=== PATIENT | female | born 1950 | race Caucasian/White ===

== ENCOUNTER 2024-08-20 14:29 | Outpatient (CLI) | payer MEDICARE, SELFPAY ==
--- OUTSIDE RECORDS SUMMARY | 2024-06-26 11:18 | XMS_ITS | Encounter Summary ---
Author Organization Healthcare Address [address] [id number] Care Team Providers Care Preventive Maintenance Engineer Name Role Phone Pcp, No Primary Care Provider Unavailabl e Reason for Referral * Consultation (Routine) - Authorized Specialty Diagnoses / Procedures Referred By Diana blas Referred To Contact Neurosurgery Diagnoses Recurrent falls Mary Ramirez, COST ESTIMATOR [address] [address] Phone: tel: fax: Referral ID Status Reason Start Date Expiration Date Visits Requested Visits Authorized [id number] Authorized Specialty Services Required 06/27/2024 12/27/2025 1 1 Scheduling Instructions Follow up s/p SAH with repeat CTH Reason for Visit * Reason Comments Multiple Complaints * Auth/Cert (Routine) Specialty Diagnoses / Procedures Referred By Diana blas Referred To Contact Diagnoses SAH (subarachnoid hemorrhage) ([facility] Saira Woodward MD [address] [address] Phone: tel: fax: [facility] [address] T[address] [place] [address] Phone: tel: Referral ID Status Reason Start Date Expiration Date Visits Re quested Visits Authorized [id number] 1 1 Encounter Details Date Type Department Care Team ([facility] st Contact Info) Description 06/26/2024 11:18 AM EDT - 06/27/2024 1:22 PM EDT Hospital Encounter [facility] PAVA [address] T[address] [place] [address] Dimas Lau MD [address] [place] [address] Zain Babin MD [address] [place] [address] Saira Woodward MD [address] [address] Antonella David MD [id number] [place] [address] Syncope, unspecified syncope type (Primary Dx); Recurrent falls Discharge Disposition: Home or Self Care Social History Tobacco Use Types Packs/Day Years Used Date Smoking Tobacco: Never Smokeless Tobacco: Never Tobacco Cessation:Counseling Given: Not Answered Alcohol Use Standard Drinks/Week Comments Never 0 (1 standard drink = 0.6 oz pur e alcohol) Comments Unknown Sex and Gender Information Value Date Recorded Sex Assigned at Female 08/28/2023 4:06 PM EDT Legal Sex Female 8:00 PM EDT Gender Identity Female 08/28/2023 4:06 PM EDT Sexual Orientation Not on file documented as of this encounter Last Filed Vital Signs Vital Sign Reading Time Taken Comments Blood Pressure 156/90 06/27/2024 11:40 AM EDT Pulse 76 06/27/2024 11:40 AM EDT Temperature 36.8 C (98.2 F) 06/27/2024 11:40 AM EDT Respiratory Rate 16 06/27/2024 3:44 AM EDT Oxygen Saturation 94% 06/27/2024 11:40 AM EDT Inhaled Oxygen Concentration - - Weight 68.5 kg (151 lb) 06/26/2024 8:31 PM EDT Height 157.5 cm (5' 2 ) 06/26/2024 8:31 PM EDT Body Mass Index 27.62 06/26/2024 8:31 PM EDT documented in this encounter Functional Status * Calculated C-SSRS Risk Score (Lifetime/Recent) Answer Date of Assessment Author No Risk Indicated 06/28/2024 1:20 PM EDT Susan Solis, RN * Question Answer Date of Assessment Author 1. Wish to be (Past 1 Month) No 025 1:20 PM EDT Susan Solis, RN 2. Non-Specific Active Suici yeyo Thoughts (Past 1 Month) No 06/28/2024 1:20 PM EDT Susan Solis RN 6. Suicidal Behavior (Lifetime) No 5 1:20 PM EDT Susan Solis, RN documented as of this encounter Discharge Instructions * Discharge Instructions* Mary Ramirez, COST ESTIMATOR - 06/27/2024 11:43 AM EDT DVT prophylaxis: Hold X2 weeks Procedures: None Mobility Restrictions: AAT Other Precautions: No lifting > 10 lbs or lifting overhead x 4 weeks. 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 Questions or Concerns and Appointments If there are questions or concerns after discharge from the hospital, please call [phone] and ask for [facility] Nurse. Working hours are Monday - Monday 8:00 AM to 4:00 PM. After hours, weekends and holidays please call [phone] and ask for the resident oracle ascp consultant for [facility]. For appointments please call [phone]. Medication requests should be made between the hours of 9:00 AM to 3:00 PM Monday thru Monday. Please note that based upon recent changes to [place] law related to prescribing opioid pain medications, our providers will not provide refills on controlled medications after your hospital discharge following a major surgery or trauma. [place] 201 KAR9:260. documented in this encounter Medications at Time of Discharge acetaminophen (Tylenol) 325 MG tablet Take 2 tablets by mouth every 6 hours. Under [place] law, monthly prescriptions (30 days) can be refilled at 25 days and three-month prescriptions (90 days) at 80 days. Please contact the insurance company with questions if refills are denied. 100 tablet 06/27/2024 albuterol 108 (90 Base) MCG/ACT inhaler Inhale 2 puffs every 4 (four) hours if needed. 06/20/2022 alendronate (Fosamax) 70 MG tablet Take 1 tablet by mouth 1 time per week. Mondays11/02/2022 amLODIPine (Norvasc) 5 MG tablet Take 1 tablet by mouth daily. 30 tablet 06/28/2024 atorvastatin (Lipitor) 80 MG tablet Take 1 tablet (80 mg) by mouth 1 (one) time each day in the morning. 11/03/2022 carvedilol (Coreg) 6.25 MG tablet Take 1 tablet by mouth 2 times a day. 60 tablet 06/27/2024 Farxiga 5 MG tablet Take 1 tablet (5 mg) by mouth 1 (one) time each day in the morning. 11/16/2022 hydrOXYzine HCl (Atarax) 25 MG tablet Take 0.5 tablets (12.5 mg) by mouth 3 (three) times a day. 11/03/2022 lacosamide (Vimpat) 50 MG tablet Take 1 tablet (50 mg) by mouth 1 (one) time each day in the morning. 11/02/2022 levothyroxine (Synthroid, Levoxyl) 50 MCG tablet Take 1 tablet (50 mcg) by mouth 1 (one) time each day in the morning. 11/02/2022 pantoprazole (ProtoNix) 20 MG EC tablet Take 2 tablets (40 mg) by mouth 1 (one) time each day in the morning. 11/02/2022 pregabalin (Lyrica) 50 MG capsule Take 1 capsule (50 mg) by mouth 2 (two) times a day. 11/02/2022 primidone (Mysoline) 50 MG tablet Take 1 tablet (50 mg) by mouth 2 (two) times a day. 11/02/2022 topiramate 50 MG tablet Take 1 tablet (50 mg) by mouth 2 (two) times a day. 11/02/2022 butalbital-aceta minophen-caffein e 50-325-40 MG tablet Take 1 tablet by mouth every 4 hours as needed for headaches for up to 10 days. 60 tablet 06/27/2024 5 senna-docusate (Arlet-Colace) 8.6-50 MG tablet Take 1 tablet by mouth daily for 14 days. 14 tablet 06/28/2024 5 documented as of this encounter Miscellaneous Notes * Refugio Lindquist RN - 06/27/2024 12:04 PM EDT Images from the original note were not included. 98[address] Using an Incentive Spirometer An incentive spirometer is a handheld device that helps you do deep breathing exercises after surgery. It also helps lower the risk of breathing problems if you have a lung disease or condition. These exercises expand your lungs, aid in circulation, and may help prevent pneumonia. Deep breathing exercises also help you breathe better and improve lung function by: ?? Keeping your lungs clear. ?? Making your breathing muscles stronger. ?? Helping prevent respiratory complications or problems. The incentive spirometer gives you a way to take an active part in your recovery. A nurse or respiratory therapist will teach you breathing exercises. To do these exercises, you will breathe in through your mouth and not your nose. The incentive spirometer only works correctly if you breathe in through your mouth. Deep breathing expands the lungs, aids circulation, and helps prevent pneumonia. Your health care provider or their staff will tell you how to use the device, your targeted volume(s), and provide other helpful tips to prevent complications (such as pain, dizziness, feeling lightheaded) when blowing in the incentive spirometer. Steps to clear lungs Step 1. Exhale normally. Then, inhale normally. ?? Relax and breathe out. Step 2. Place your lips tightly around the mouthpiece. ?? Make sure the device is upright and not tilted. ?? Sit up and breathe out (exhale) fully. ?? Tightly seal your lips around the mouthpiece. Step 3. Inhale as much air as you can through the mouthpiece. Don't breathe through your nose. ?? Breathe in (inhale) slowly and deeply. ?? Hold your breath long enough to keep the balls, piston, or disk raised for at least 3 to 5 seconds, or as instructed by your health care provider. ?? Exhale slowly to allow the balls, piston, or disk to fall before repeating. Note: Some spirometers have an indicator to let you know that you are breathing in too fast. If theindicator goes off, breathe in more slowly. Step 4. Repeat the exercise regularly. ?? Do sets of 10 exercises every hour while you're awake, or as instructed by your health care provider. Don't do more than 30 breaths in each set. ?? If you were taught deep breathing and coughing exercises, do them regularly as instructed by your provider, nurse, or respiratory therapist. Follow-up care Make a follow-up appointment as directed by your health care provider. Also, follow up with your provider as advised if your symptoms don't improve or continue to get worse. When to contact your doctor Contact your health care provider right away if you have: ?? A fever 100.4?? (38??C) or higher, or as advised by your provider. ?? Brownish, bloody, or smelly sputum (phlegm that you cough up). Call 911 Call 911 if any of these occur: ?? Shortness of breath that doesn't get better after taking your medicine ?? Cool, moist, pale, or blue skin ?? Trouble breathing or swallowing, wheezing ?? Fainting or loss of consciousness ?? Feeling of dizziness or weakness, or a sudden drop in blood pressure ?? Feeling very ill ?? Lightheadedness ?? Chest pain or rapid heart rate Last Reviewed Date: 2024 00:00:00 ?? [id number] [employer]. All rights reserved. This information is not intended as a substitute for professional medical care. Always follow your healthcare professional's instructions. * KraRefugio Ramos RN - 06/27/2024 12:04 PM EDT Images from the original note were not included. [id number] Rib Fracture (Broken Rib) Your ribs are curved bones in your chest. They help protect your lungs and expand and contract whenyou breathe. Children's ribs bend easily and can often withstand a blow or fall. But adult ribs aremore likely to break (fracture) under stress. Even coughing or a hard sneeze can fracture a rib. When to go to the emergency room (ER) Although they can be painful, most rib fractures aren't serious. But they often make it hard to cough or breathe deeply. Get to the ER or call 911 right away if you have: ?? Trouble breathing ?? Nausea, vomiting, or stomach pain with a sore or bruised rib ?? Pain that gets worse over time ?? An injury to the chest or stomach What to expect in the ER Here's what will happen in the ER: ?? A healthcare provider will ask about your injury and examine you carefully. ?? An X-ray of your chest will likely be taken to show any major damage to ribs and lungs. But ribscan have small breaks that don't show up on X-rays, even though they still hurt. In some cases, a CT scan may be done. ?? You may be given medicine to ease your discomfort. ?? In rare cases, rib fractures can cause a lung to collapse or lead to bleeding in the chest. In these cases, a tube will be inserted into the chest to reinflate the lung or drain the blood. Follow-up You are likely to heal in 6 to 8 weeks. Most rib fractures heal on their own with no lasting effects. Call your healthcare provider right away if you notice any of these symptoms: ?? Increased chest pain ?? Shortness of breath ?? Fever of 100.4??F (38??C) or above, or as advised by your provider ?? Chills ?? Coughing up blood Last Reviewed Date: 2023 00:00:00 ?? [id number] [employer]. All rights reserved. This information is not intended as a substitute for professional medical care. Always follow your healthcare professional's instructions. * Dileep Rodriguez - Refugio Haney RN - 06/27/2024 12:04 PM EDT Images from the original note were not included. [id number] Fall Prevention Falls often take place due to slipping, tripping, or losing your balance. Millions of people fall every year and injure themselves. Among older adults in the [place] falls are the most common cause of traumatic brain injuries. Every 20 minutes, an older adult dies from a fall. Here are ways to reduceyour risk of falling again: ?? Think about your fall. Was there anything that caused your fall that can be fixed, removed, or replaced? ?? Make your home safe by keeping walkways clear of objects you may trip over, such as animal toys and electrical cords. ?? If you are sad or depressed talk to your health care provider. Symptoms of depression, such as feeling under the weather, or physically slowed down, have been linked to an increased fall risk. ?? Drink fluids throughout the day. Dehydration can lead to dizziness and increase your risk of falling. It's best to talk to your primary care providers about how much water you should drink. They know your medical history, your current prescriptions and your [id number] medicines. As a general rule, the National [place] [employer] Aging (NCA) recommends taking one-third of your body weight and drinking that number of ounces in fluids. For example, if you weigh 150 pounds, you would drink at least 50 ounces, or about 6 cups, of fluid each day. Ask your provider if it's safe for you to use this formula. ?? Use nonslip pads under rugs. Don't use area rugs or small throw rugs. ?? Use nonslip mats in bathtubs and showers. ?? Hang grab rails by the toilet and inside and outside the shower. ?? Install handrails and lights on staircases. The handrails should be on both sides of the stairs. ?? Use night lights. ?? Don't walk in poorly lit areas. ?? Don't stand on chairs or wobbly ladders. ?? Use care when reaching overhead or looking up. This position can cause a loss of balance. ?? Be sure your shoes fit well, are in good condition, and have nonslip bottoms. ?? Wear shoes both inside and outside of your home. Don't go barefoot or wear slippers. ?? Be cautious when going up and down stairs, curbs, and when walking on uneven sidewalks. ?? If your balance is poor, consider using a cane or walker. Talk with your health care provider about having a balance assessment. ?? If your fall was related to alcohol use, stop or limit alcohol intake. Ask your provider for help if you think you may overuse alcohol and can't stop. ?? If your fall was related to use of sleeping medicines, talk with your provider about this. You may need to reduce your dosage at bedtime if you wake up during the night to go to the bathroom. ?? To reduce the need for nighttime bathroom trips: o Don't drink fluids for several hours before going to bed. o Empty your bladder before going to bed. o Men can keep a urinal at the bedside. ?? Stay as active as you can. Balance, flexibility, strength, and endurance all come from exercise.They all play a role in preventing falls. Ask your provider which types of activity are right for you. Try to do some type of exercise every day. ?? Get your eyes checked once a year or more often if your vision changes. Be extra cautious while adjusting to new prescription lenses. ?? If you have pets, know where they are before you stand up or walk so you don't trip over them. ?? Go over all your medicines with a pharmacist or other provider. This is to see if any of them could make you more likely to fall. Have this type of medicine review at least once every year. ?? If your provider advises a new medicine, ask if the side effects will affect your balance. ?? Don't move quickly from one position to another. For instance, don't stand up fast from sitting.This can cause dizziness and may lead to a fall. ?? Sit down when putting on pants, socks, and shoes. This will make you less likely to lose your balance and fall. ?? Always let your provider know if you have fallen since your last visit. ?? Contact your provider right away if you're having balance problems or falling more often. Last Reviewed Date: 2024 00:00:00 ?? [id number] [employer]. All rights reserved. This information is not intended as a substitute for professional medical care. Always follow your healthcare professional's instructions. * Dileep OnFHIR - Refugio Haney RN - 06/27/2024 12:04 PM EDT Images from the original note were not included. [id number] After a Fall You have had a fall today. That means that you slipped, tripped, or lost your balance. If your fallwas because of fainting or a seizure, you might need other tests. It is normal to feel sore and tight in your muscles and back the next day, and not just the musclesyou injured. Remember, all the parts of your body are connected, so while one area hurts now, the next day another may hurt. Also, when you injure yourself, it causes inflammation. This then causes the muscles to tighten up and hurt more. After the initial worsening symptoms, they should slowly improve over the next few days. Tell your healthcare provider if you have more severe pain. Even without a definite head injury, you can still get a concussion from your head suddenly jerkingforward, backward, or sideways when you fall. This is especially true if you have had concussions in the past. Concussions and even bleeding can still happen, especially if you had a recent injury ortake blood thinner medicine. It is not unusual to have a mild headache and feel tired and even nauseous or dizzy. Home care ?? Rest today and return to your normal activities when you are feeling back to normal. ?? If you were injured during the fall, follow the advice from your healthcare provider about how to care for your injury. ?? At first, don't try to stretch out the sore spots. If there is a strain, stretching may make it worse. Massage may help relax the muscles without stretching them. ?? Use an ice pack or cold compress on and off at the sore spots for 10 to 20 minutes at a time, asoften as you feel comfortable. This may help reduce the inflammation, swelling, and pain. ?? Know that if you have any scrapes (abrasions), they often heal within 10 days. Keep the scrapes clean while they start to heal. But an infection may happen even with correct care. So watch for early signs of infection (such as warmth, redness, or swelling). Medicines ?? Talk with your healthcare provider before taking new medicines, especially if you have other health problems or are taking other medicines. ?? If you need anything for pain, use acetaminophen or ibuprofen, unless you were given a differentpain medicine to use. Talk with your healthcare provider before using these medicines if you: o Have chronic liver or kidney disease o Ever had a stomach ulcer or gastrointestinal bleeding o Are taking blood-thinner medicines ?? Be careful if you are given prescription pain medicines, narcotics, or medicine for muscle spasms. They can make you sleepy and dizzy. And they can affect your coordination, reflexes, and judgment. Don't drive or do work where you can hurt yourself when taking them. Fall prevention ?? Fix, remove, or replace anything that caused your fall. ?? Make your home safe by keeping walkways clear of objects you could trip over. ?? Use nonslip pads under rugs. Don't use small area rugs or throw rugs. ?? Don't walk in poorly lit areas. ?? Don't stand on chairs or wobbly ladders. ?? Be careful when reaching overhead or looking upward. This position can cause a loss of balance. ?? Be sure your shoes fit correctly, have nonslip bottoms, and are in good condition. ?? Be careful when going up and down curbs, and walking on uneven sidewalks. ?? If your balance is poor, think about using a cane or walker. ?? Stay as active as you can. Balance, flexibility, strength, and endurance all come from exercise.They all play a role in preventing falls. ?? If you have pets, know where they are before you stand up or walk so you don't trip over them. ?? Limit alcohol intake. Alcohol can cause balance problems and increase the risk for falls. ?? Use night-lights. ?? Have your eyes tested to be sure you are seeing well, even if you already wear glasses. Follow-up Follow up with your healthcare provider, or as advised. If X-rays or CT scans were done, you will be told if there is a change in the reading, especially if it affects treatment. Call 911 Call 911 if any of these happen: ?? Trouble breathing ?? Confusion ?? Trouble waking up ?? Fainting or loss of consciousness ?? Fast or very slow heart rate ?? Seizure ?? Trouble with speech or vision, weakness of an arm or leg ?? Trouble walking or talking, loss of balance, numbness or weakness on one side of your body, or facial droop When to get medical advice Call your healthcare provider right away if any of these happen: ?? Repeated falls, including falls that seem to happen for no reason ?? Dizziness ?? Severe headache ?? Blood in vomit or stools (look black or red in color) Last Reviewed Date: 2022 00:00:00 ?? [id number] [employer]. All rights reserved. This information is not intended as a substitute for professional medical care. Always follow your healthcare professional's instructions. * Discharge Summary - Mary Ramirez APRN - 06/27/2024 11:51 AM EDT Hospitalization Admit Date/Time: 06/26/2024 11:18 AM Admitting Attending: Saira Woodward Discharge Date: 06/27/24 Discharge Attending Physician: Antonella David MD PCP name and Address: Pcp, No [address] [facility] [address] Referring provider name and address: No referring provider defined for this encounter. Chief Concern, Brief History of Present Illness, and Hospital Course Laxmi Lopez is 73 y/o female with pmhx of syncope, DDD (pain pump) CVA on plavix who presented to ED on 06/26 s/p fall with + LOC and headstrike. Injuries include: R 6th rib fx, IVH, SAH. Past 24h: Laxmi seen resting in bed. A&Ox4. Tolerating Ra. Denies SOA, chest pain, N/V, dizziness, headache, blurred vision. Patient states she has had a few syncopal episodes in the last few weeks. Encouraged her to follow up with PCP for syncopal workup; recommend CTA H&N & echo. Her SAH is stable. Encouraged pulm hygiene and MMPC for rib fx. Abdomen soft, non tender. 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 Voiding spontaneously. Resumed home antihypertensives. Patient denies alcohol/drug use. She has implanted morphine pain pump for DDD. No spinal tenderness with palpation and compression to C/T/L spine. No pelvic tenderness with rotation and palpation. All compartments are soft and compressible. Pulses are palpable and present. No pain outside of acute rib fx and chronic pain. PT/OT pending. Discussed plan of care with patient/family, attending, CM, RN, consulting teams. No further concerns at this time. Physical therapy and occupational therapy evaluated the patient during hospitalization and recommend HWA; RW At the time of discharge the patient was hemodynamically stable, tolerating PO, voiding spontaneously, normal bowel function, mobilizing appropriately, with their pain controlled with PO medication. At this time, the patient has obtained the maximum benefit from the present hospital stay, and so will be discharged to A; RW DVT prophylaxis: Hold X2 weeks Procedures: None Mobility Restrictions: AAT Other Precautions: No lifting > 10 lbs or lifting overhead x 4 weeks. 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 Questions or Concerns and Appointments If there are questions or concerns after discharge from the hospital, please call [phone] and ask for Blue Surgery Nurse. Working hours are Monday - Monday 8:00 AM to 4:00 PM. After hours, weekends and holidays please call [phone] and ask for the resident oracle ascp consultant for [facility]. For appointments please call [phone]. Medication requests should be made between the hours of 9:00 AM to 3:00 PM Monday thru Monday. Please note that based upon recent changes to [place] law related to prescribing opioid pain medications, our providers will not provide refills on controlled medications after your hospital discharge following a major surgery or trauma. [place] 201 [id number]. TRAUMA SURGERY TERTIARY SURVEY I performed a complete tertiary exam, reviewed patient history, lab studies and all available imaging. All traumatic or incidental findings have been documented as below: Past Medical History: Active Ambulatory Problems Diagnosis Date Noted No Active Ambulatory Problems Resolved Ambulatory Problems Diagnosis Date Noted Migraine without status migrainosus, not intractable, unspecified migraine type 11/18/2022 Past Medical History: Diagnosis Date Chronic back pain CVA (cerebral vascular accident) ([facility]) Grand mal seizure ([facility]) H/O absence seizures Hypertension Migraine Personal history of diseases of the blood and blood-forming organs and certain disorders involving the immune mechanism Personal history of other diseases of the musculoskeletal system and connective tissue Personal history of other diseases of the musculoskeletal system and connective tissue Personal history of other diseases of the nervous system and sense organs Personal history of other endocrine, nutritional and metabolic disease Personal history of transient ischemic attack (TIA), and cerebral infarction without residual deficits Personal history of urinary calculi 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 Authorizing Provider acetaminophen (Tylenol) 325 MG tablet Take 2 tablets by mouth every 6 hours. Under [place] law, monthly prescriptions (30 days) can be refilled at 25 days and three-month prescriptions (90 days) at 80 days. Please contact the insurance company with questions if refills are denied. 06/27/24 Yes Mary Ramirez APRN amLODIPine (Norvasc) 5 MG tablet Take 1 tablet by mouth daily. 06/28/24 07/28/24 Yes Mary Ramirez APRN fgxnyeohhi-vgocaccfyndom-cfkmjkti 50-325-40 MG tablet Take 1 tablet by mouth every 4 hours as needed for headaches for up to 10 days. 06/27/24 07/07/24 Yes Michelle Chávez PA carvedilol (Coreg) 6.25 MG tablet Take 1 tablet by mouth 2 times a day. 06/27/24 07/27/24 Yes Mary Ramirez APRN senna-docusate (Arlet-Colace) 8.6-50 MG tablet Take 1 tablet by mouth daily for 14 days. 06/28/24 07/12/24 Yes Mary Ramirez APRN albuterol 108 (90 Base) MCG/ACT inhaler Inhale 2 puffs every 4 (four) hours if needed. 06/20/22 Moni Chester MD alendronate (Fosamax) 70 MG tablet Take 1 tablet (70 mg) by mouth 1 (one) time per week. Mondays11/02/22 Moni Chester MD amLODIPine (Norvasc) 2.5 MG tablet Take 1 tablet (2.5 mg) by mouth 1 (one) time each day in the morning. 11/03/22 Moni Chester MD Aspirin Low Dose 81 MG EC tablet Take 1 tablet (81 mg) by mouth 1 (one) time each day in the morning. 11/02/22 Moni Chester MD atorvastatin (Lipitor) 80 MG tablet Take 1 tablet (80 mg) by mouth 1 (one) time each day in the morning. 11/03/22 Moni Chester MD carvedilol (Coreg) 25 MG tablet Take 1 tablet (25 mg) by mouth 2 (two) times a day. 11/19/22 11/19/23Agustina Jansen MD clopidogrel (Plavix) 75 MG tablet Take 1 tablet (75 mg) by mouth 1 (one) time each day in the morning. 11/02/22 Moni Chester MD Farxiga 5 MG tablet Take 1 tablet (5 mg) by mouth 1 (one) time each day in the morning. 11/16/22 Moni Chester MD hydrOXYzine HCl (Atarax) 25 MG tablet Take 0.5 tablets (12.5 mg) by mouth 3 (three) times a day. 11/03/22 Moni Chester MD lacosamide (Vimpat) 50 MG tablet Take 1 tablet (50 mg) by mouth 1 (one) time each day in the morning. 11/02/22 Moni Chester MD levothyroxine (Synthroid, Levoxyl) 50 MCG tablet Take 1 tablet (50 mcg) by mouth 1 (one) time each day in the morning. 11/02/22 Moni Chester MD pantoprazole (ProtoNix) 20 MG EC tablet Take 2 tablets (40 mg) by mouth 1 (one) time each day in the morning. 11/02/22 Moni Chester MD pregabalin (Lyrica) 50 MG capsule Take 1 capsule (50 mg) by mouth 2 (two) times a day. 11/02/22 Moni Chester MD primidone (Mysoline) 50 MG tablet Take 1 tablet (50 mg) by mouth 2 (two) times a day. 11/02/22 Moni Chester MD topiramate 50 MG tablet Take 1 tablet (50 mg) by mouth 2 (two) times a day. 11/02/22 Moni Chester MD traZODone (Desyrel) 100 MG tablet Take 2 tablets (200 mg) by mouth every night. 11/03/22 Moni Chester MD Social History: Pt has reports that she has never smoked. She has never used smokeless tobacco. She reports that she does not drink alcohol and does not use drugs. (details as available below) Social History Substance and Sexual Activity Alcohol Use Never Social History Substance and Sexual Activity Drug Use Never Tobacco Use History[2] Audit-C for Alcohol Misuse Screening Lab Results Component Value Date ETOH <10 08/28/2023 Q1: How often did you have a drink containing alcohol in the past year? Never = 0 Q2: How many drinks did you have on a typical day when you were drinking in the past year? None = 0 Q3: How often did you have six or more drinks on one occasion in the past year? Never = 0 The AUDIT-C is scored on a scale of 0-12 (scores of 0 reflect no alcohol use). In men, a score of 4or more is considered positive; in women, a score of 3 or more is considered positive. Generally, the higher the AUDIT-C score, the more likely it is that the patient's drinking is affecting his/her health and safety. If screening positive (men = 4 women = 3), proceed with referral for alcohol misuse. TOTAL SCORE: 0 Brief Intervention Performed: Not indicated Referral to Treatment Made: Not indicated Tertiary exam as documented above. Radiology: Reviewed all imaging and documented findings. New diagnoses, need for imaging or specialty consultation identified as present on admission via tertiary survey: No Are there limits on this patient's care or advanced wishes/documents available? No Medication List .. acetaminophen 325 MG tablet Commonly known as: Tylenol Take 2 tablets by mouth every 6 hours. Under [place] law, monthly prescriptions (30 days) can be refilled at 25 days and three-month prescriptions (90 days) at 80 days. Please contact the insurance company with questions if refills are denied. albuterol 108 (90 Base) MCG/ACT inhaler Inhale 2 puffs every 4 (four) hours if needed. alendronate 70 MG tablet Commonly known as: Fosamax Take 1 tablet (70 mg) by mouth 1 (one) time per week. Mondays amLODIPine 5 MG tablet Commonly known as: Norvasc Take 1 tablet by mouth daily. Start taking on: June 28, 2024 atorvastatin 80 MG tablet Commonly known as: Lipitor Take 1 tablet (80 mg) by mouth 1 (one) time each day in the morning. fapjdrlshu-ndvankmbrkhde-jteyoydt 50-325-40 MG tablet Take 1 tablet by mouth every 4 hours as needed for headaches for up to 10 days. carvedilol 6.25 MG tablet Commonly known as: Coreg Take 1 tablet by mouth 2 times a day. Farxiga 5 MG tablet Generic drug: dapagliflozin Take 1 tablet (5 mg) by mouth 1 (one) time each day in the morning. hydrOXYzine HCl 25 MG tablet Commonly known as: Atarax Take 0.5 tablets (12.5 mg) by mouth 3 (three) times a day. lacosamide 50 MG tablet Commonly known as: Vimpat Take 1 tablet (50 mg) by mouth 1 (one) time each day in the morning. levothyroxine 50 MCG tablet Commonly known as: Synthroid, Levoxyl Take 1 tablet (50 mcg) by mouth 1 (one) time each day in the morning. pantoprazole 20 MG EC tablet Commonly known as: ProtoNix Take 2 tablets (40 mg) by mouth 1 (one) time each day in the morning. pregabalin 50 MG capsule Commonly known as: Lyrica Take 1 capsule (50 mg) by mouth 2 (two) times a day. primidone 50 MG tablet Commonly known as: Mysoline Take 1 tablet (50 mg) by mouth 2 (two) times a day. senna-docusate 8.6-50 MG tablet Commonly known as: Arlet-Colace Take 1 tablet by mouth daily for 14 days. Start taking on: June 28, 2024 topiramate 50 MG tablet Take 1 tablet (50 mg) by mouth 2 (two) times a day. Where to Get Your Medications These medications were sent to [facility] - [place], [place] - [address], [facility] [id number] acetaminophen 325 MG tablet amLODIPine 5 MG tablet zmfnayixpx-vsbxqslavsyow-jgkvvwec 50-325-40 MG tablet carvedilol 6.25 MG tablet senna-docusate 8.6-50 MG tablet Discharge Diagnosis Medical Problems Active and Resolved Hospital Problems Hospital IVH (intraventricular hemorrhage) ([facility]) Overview Signed 06/26/2024 4:42 PM by Rosa Bee DO - BIG 3 (on plavix, hx of CVA) - CT Head: Small amount of intraventricular and subarachnoid hemorrhage with no significant mass effect, new from prior and most likely associated with known patient trauma. - NSG following - post 6H CT Head ordered * (Principal) SAH (subarachnoid hemorrhage) ([facility]) Overview Signed 06/26/2024 4:42 PM by Rosa Bee DO - BIG 3 (on plavix, hx of CVA) - CT Head: Small amount of intraventricular and subarachnoid hemorrhage with no significant mass effect, new from prior and most likely associated with known patient trauma. - NSG following - post 6H CT Head ordered Recurrent falls Overview Signed 06/27/2024 11:59 AM by Mary Ramirez APRN Syncopal workup outpatient with PCP Admit SGT 06/26; Tert 06/27 History of stroke Overview Signed 06/26/2024 4:39 PM by Rosa Bee DO - w/ residual left sided deficits - hold AC Multilevel degenerative disc disease Overview Addendum 06/26/2024 4:40 PM by Rosa Bee DO - hx of degenerative disc disease - morphine pump - consult PM&R Closed traumatic nondisplaced fracture of one rib of right side Overview Signed 06/26/2024 4:43 PM by Rosa Bee DO CT chest - nondisplaced RT 6th rib fracture - pain control Pertinent Physical Exam At Time of Discharge Physical Exam HENT: Head: Normocephalic. Nose: Nose normal. Cardiovascular: Rate and Rhythm: Normal rate. Pulmonary: Effort: No respiratory distress. Breath sounds: No wheezing. Musculoskeletal: General: Tenderness (R sided ribs) and signs of injury (R rib fx (6th)) present. Normal range of motion. Cervical back: Normal range of motion. No rigidity or tenderness. Right lower leg: No edema. Left lower leg: No edema. Skin: General: Skin is warm and dry. Neurological: Mental Status: She is alert. Discharge Disposition/Condition Disposition: Home Condition: Stable (s/sx potential problems absent or manageable) I spent >30 minutes of patient care and instruction time in preparation for this discharge. [1] Past Surgical History: Procedure Laterality Date CARDIAC PACEMAKER PLACEMENT N/A Pacemaker Placement from [facility] CHOLECYSTECTOMY N/A Cholecystectomy from [facility] HYSTERECTOMY N/A Hysterectomy from [facility] [2] Social History Tobacco Use Smoking Status Never Smokeless Tobacco Never Cosigned by Antonella David MD at 06/27/2024 3:15 PM EDT Associated attestation - Antonella David MD - 06/27/2024 3:15 PM EDT The patient was seen only by Advanced Practice Provider (MARYANN). * Progress Notes - Keri Fountain - 06/27/2024 11:19 AM EDT OCCUPATIONAL THERAPY EVALUATION PATIENT DATA Patient Name Abby Lopez Session Date 06/27/2024 OT Discharge Recommendations Home with assistance Equipment Recommendations Rolling walker HISTORY Abby Lopez is 73 y.o. female admitted 06/26/2024 for work-up of SAH (subarachnoid hemorrhage) ([facility] Hospital Course 1. Syncope, unspecified syncope type 2. Recurrent falls Procedures (if applicable) Past Medical History Patient has a past medical history of Chronic back pain, CVA (cerebral vascular accident) (CMS/HCC), Grand mal seizure (CMS/HCC), H/O absence seizures, Hypertension, Migraine, Personal history of diseases of the blood and blood-forming organs and certain disorders involving theimmune mechanism, Personal history of other diseases of the musculoskeletal system and connective tissue, Personal history of other diseases of the musculoskeletal system and connective tissue, Personal history of other diseases of the nervous system and sense organs, Personal history of other endocrine, nutritional and metabolic disease, Personal history of transient ischemic attack (TIA), and ce rebral infarction without residual deficits, Personal history of urinary calculi, and 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 Past Surgical History Patient has a past surgical history that includes Cholecystectomy (N/A); Cardiac pacemaker placement (N/A); and Hysterectomy (N/A). PRECAUTIONS Medical Precautions Medical Precautions: Fall precautions SUBJECTIVE PARTICIPANTS IN CARE Patient/Caregiver Comments Pt reports that other than headache and R rib pain she feels back to carrier clinic. Visitors Present No 8Th Grade Mathematics Teacher (if applicable) N/A PRESENTATION Oxygen None (Room air) Telemetry No Lines and Tubes Peripheral IV Left Antecubital (Active) Pre-Session Supine, Bed alarm, Lines intact RN consenting to OT treatment. Post-Session Supine, Head of bed elevated, Lines intact, RN notified, Call light in reach All needsmet upon close of session. Bracing (if applicable) HOME LIVING/SET-UP Lives With Daughter, Adult (SON IN LAW) Home Type House Home Equipment Rolling walker, Cane, shower chair Home Layout One level Bathroom Layout Tub/Shower combo, Handheld shower head Bathroom: Toilet: Standard Additional Comments PRIOR LEVEL OF FUNCTION Receives help from Daughter Level of Mobility Ambulatory- community Mobility [place] Independent gait without device History of Falls Yes ADL Performance ADL Performance: Needs assistance (LEFT EYE VISION IMPAIRED) Bathing: Needs assist Upper Body Dressing: Independent Lower Body Dressing: Independent Grooming: Independent Toileting: Independent Eating: Independent Home Management Skills: Needs assist PATIENT/FAMILY GOALS To discharge home. OBJECTIVE PAIN Pt with headache and R rib pain- did not quantify. Positioned for comfort at conclusion of session. DELIRIUM SCREENING Barclay Agitation Sedation Scale (RASS): Alert and calm Confusion Assessment Method-ICU (CAM-ICU/PCAM-ICU) Feature 3: Altered Level of Consciousness: Negative COGNITION Overall Cognitive Status Within Functional Limits Arousal/Alertness Appropriate responses to stimuli Mood/Behavior Alert Orientation Command Following Single Step Commands: Consistently Multi-Step Commands: Consistently Method of Communication Verbal Additional Observations VISION Baseline Vision Current Vision (if different) Patient Visual Report: reports impaired vision to L eye since CVA years ago. No acute vision changes. RIGHT UPPER EXTREMITY EXAMINATION Range of Motion Within Functional Limits Manual Muscle Testing Within functional limits Light Touch Sensation Intact LEFT UPPER EXTREMITY EXAMINATION Range of Motion Exceptions to WFL (0-75 AROM shoulder flexion, distal ROM WFL- per pt this is baseline for L UE) Manual Muscle Testing (did not formally assess- functionally demonstrated at least +3/5) Light Touch Sensation Intact BED MOBILITY Level of [place] Physical/Non- physical Assist Adaptive Equipment Utilized Scooting/ Bridging Contact guard (in sitting to scoot to EOB) Verbal Cues Supine to Sit Contact guard Verbal Cues, HOB elevated TRANSFERS Level of [place] Physical/Non- physical Assist Adaptive Equipment Utilized Sit to Stand Contact guard Verbal Cues Walker, rolling Stand to sit Contact guard Verbal Cues Walker, rolling BALANCE Postural Appearance Posture: Stooped posture, Forward head, Rounded shoulders Level of [place] Balance Support Interventions Static Sit Standby assist Feet supported Dynamic Sit Contact guard Feet supported Static Stand Contact guard Right upper extremity support, Left upper extremity support Dynamic Stand Contact guard Right upper extremity support, Left upper extremity support INTERVENTIONS SELF-CARE Treatment Minutes (if applicable) 19 Comments In addition to self-care completion, pt functionally mobilized household distance with CGAx1 +RW. This was encouraged to simulate sequential activity tolerance which is often present duringfunctional tasks (I.e. bathing followed by dressing). Cueing provided throughout for energy conservation and safety strategies. Of note, pt with dyspnea throughout functional mobility completion. O2 checked upon return to the room in which it remained 95-100% throughout sitting, standing, and in place marching to simulate activity. Level of [place] Adaptive Equipment Utilized Interventions Lower Body Dressing Pants Level of Assistance: Contact guard Donned pants while seated EOB. No assistance was required with CGA provided for incidental balance support. Pt self-initiated compensatory donning technique via threading L LE first without cueing required. STANDARDIZED ASSESSMENTS Debbie Index Feeding: Independent Bathing: Independent (or in Shower) Grooming: Independent face/hair/teeth/shaving (implements provided) Dressing: Independent (including buttons, zips, laces etc.) Bowels: Continent Bladder: Continent Toilet Use: Independent (on and off, dressing, wiping) Transfers (Bed to Chair and Back): Independent Mobility (on Level Surfaces): Walks with help or one person (verbal or physical) > 50 yards Stairs: Needs help (verbal, physical, carrying aid) Total Score: 90 ASSESSMENT OT FINDINGS Pt on this date presents with pain and reduced activity tolerance. Despite this, pt was able to complete household distance functional mobility and self-care execution largely unassisted. Per her report, she is back to baseline level of functioning with the exception of R rib pain and headache. Based on clinical reasoning of observed skills, pt is appropriate for discharge home with assistance. Per pt has ample support and home design is conducive with current level of functioning. At this time, no additional skilled OT needs have been identified as functional status is anticipated to naturally improve as pain alleviates. Impaired ADL performance, Impaired IADL performance, Decreased endurance/ventilation/gas exchange, Impaired functional mobility Evaluation/ Treatment Tolerance (if identified) Patient limited by pain, Patient limited by fatigue Rehab Potential (if identified) Good, to achieve stated therapy goals Barriers to Discharge (if identified) EVAL COMPLEXITY Occupational Profile Expanded review of medical/therapy records and additional review of physical, cognitive, or psychosocial history Performance Deficits Activities of daily living (ADLs), Instrumental activities of daily living (IADLs), Leisure, Body functions, Body structures, Motor skills, Process skills, Habits, Routines, Roles, Personal, Physical Clinical Decision Making Moderate Overall Eval Complexity Moderate OT RECOMMENDATIONS Discharge Destination Home with assistance Discharge Equipment Rolling walker Recommendations for Referral to Another Service (if applicable) PLAN Pt discharged prior to documentation of this note. Written by Keri Fountain on 06/27/24 at 2:44 PM. * Progress Notes - Maye Banks - 06/27/2024 11:18 AM EDT Physical Therapy Evaluation Patient Name: Abby Lopez Today's Date: 06/27/2024 PT Discharge Recommendations: Home with assistance Equipment Recommended: Rolling walker History Abby Lopez is 73 y.o. female admitted 06/26/2024 for work-up of SAH (subarachnoid hemorrhage) ([facility] Hospital Course 1. Syncope, unspecified syncope type 2. Recurrent falls Past Medical History Patient has a past medical history of Chronic back pain, CVA (cerebral vascular accident) ([facility]), Grand mal seizure ([facility]), H/O absence seizures, Hypertension, Migraine, Personal history of diseases of the blood and blood- forming organs and certain disorders involving the immune mechanism, Personal history of other diseases of the musculoskeletal system and connective tissue, Personal history of other diseases of the musculoskeletal system and connective tissue, Personal history of other diseases of the nervous system and sense organs, Personal history of other endocrine, nutritional and metabolic disease, Personal history of transient ischemic attack (TIA), and cerebral infarction wit hout residual deficits, Personal history of urinary calculi, and 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 Past Surgical History Patient has a past surgical history that includes Cholecystectomy (N/A); Cardiac pacemaker placement (N/A); and Hysterectomy (N/A). Precautions Medical Precautions: Fall precautions Subjective Pt agreeable to working with PT. RN approves of PT visit timing. Pt endorses feeling like she wouldlike to take a walk. Participants in Care Family/Caregiver Present: No 8Th Grade Mathematics Teacher: Not Applicable Presentation Oxygen Therapy: None (Room air) Lines and Tubes: Intravenous access Pre-Session: Supine, Bed alarm, Lines intact Post-Session: Supine, Head of bed elevated, Lines intact, RN notified, Call light in reach Home Living/Set-Up Lives With: Daughter, Adult (SON IN LAW) Home Type: House Home Adaptive Equipment: Rolling walker, Cane, shower chair Home Layout: One level Bathroom: Tub/Shower: Tub/Shower combo, Handheld shower head Bathroom: Toilet: Standard Prior Level of Function Receives Help From: Daughter Level of Mobility: Ambulatory- community Mobility [place]: Independent gait without device History of Falls: Yes ADL Performance: Needs assistance (LEFT EYE VISION IMPAIRED) Bathing: Needs assist Upper Body Dressing: Independent Lower Body Dressing: Independent Grooming: Independent Toileting: Independent Eating: Independent Home Management Skills: Needs assist Patient/Family Goals GET BETTER AND GO HOME Objective Pain Pt endorses having a headache which she reports is 6/10 in severity. RN aware. Delirium Screening Barclay Agitation Sedation Scale (RASS): Alert and calm Confusion Assessment Method-ICU (CAM-ICU/PCAM-ICU) Feature 3: Altered Level of Consciousness: Negative Cognition Overall Cognitive Status: Within Functional Limits Arousal/Alertness: Appropriate responses to stimuli Mood/Behavior: Alert Single Step Commands: Consistently Multi-Step Commands: Consistently Method of Communication: Verbal Vision - Complex Assessment Patient Visual Report: reports impaired vision to L eye since CVA years ago. No acute vision changes. Right Upper Extremity Examination RUE Assessment: Within Functional Limits Manual Muscle Testing - RUE: Within functional limits Light Touch: Right Upper Extremity: Intact Left Upper Extremity Examination LUE Assessment: Exceptions to WFL (0-75 AROM shoulder flexion, distal ROM WFL- per pt this is baseline for L UE) Manual Muscle Testing - LUE: (did not formally assess- functionally demonstrated at least +3/5) Light Touch: Left Upper Extremity: Intact Right Lower Extremity Examination RLE Assessment: Exceptions to WFL Manual Muscle Testing - RLE: Within functional limits Light Touch: Right Lower Extremity: Intact Left Lower Extremity Examination LLE Assessment: Within Functional Limits Manual Muscle Testing: Within functional limits Light Touch: Left Lower Extremity: Intact Bed Mobility Bed Mobility Exam: Scooting/Bridging Level of [place]: Contact guard (in sitting to scoot to EOB) Physical/Nonphysical Assist: Verbal Cues Bed Mobility Exam: Supine to Sit Level of [place]: Contact guard Physical/Nonphysical Assist: Verbal Cues, HOB elevated Transfers Transfer Exam: Sit to stand Level of [place]: Contact guard Physical/Nonphysical Assist: Verbal Cues Assistive Device: Walker, rolling Transfer Exam: Stand to Sit Level of [place]: Contact guard Physical/Nonphysical Assist: Verbal Cues Assistive Device: Walker, rolling Ambulation Device: Rolling walker Assistance: Contact guard assist Distance : 80 ft Ambulation Comments: Pt needed instruction for walker management and safety. Balance Postural Appearance Posture: Stooped posture, Forward head, Rounded shoulders Static Sitting Balance Static Sitting-Balance Support: Feet supported Static Sitting-Level of Assistance: Standby assist Dynamic Sitting Balance Dynamic Sitting-Balance Support: Feet supported Level of Assistance: Contact guard Static Standing Balance Static Standing-Balance Support: Right upper extremity support, Left upper extremity support Static Standing-Level of Assistance: Contact guard Dynamic Standing Balance Dynamic Standing-Balance Support: Right upper extremity support, Left upper extremity support Dynamic Standing Level of Assistance: Contact guard Therapeutic Activity (12 minutes) PT assisted and instructed pt in functional mobility activities to improve their ability to move around safely in home environment and reduce the effects of post injury sedentary status. Pt participated in bed mobility, [id number] and [id number] transfers. PT fitted pt with a rolling walker and assisted her with ambulation on level surfaces. Verbal and tactile cues given to pt by PT for: postural control, weight shifting, improved biomechanics, safety, movement sequence, hand/foot placement, assistive device management, and appropriate activity pacing. Pt elected to return to bed following ambulation. Pt was positioned for comfort with needs in reach. Standardized Assessments [facility] 6-Clicks Mobility Assessment Difficulty patient has turning over in bed (including adjusting bedclothes, sheets, and blankets)?:None Difficulty patient has sitting down on and standing up from a chair with arms (wheelchair, bedside commode, etc.)?: A little Difficulty patient has moving from lying on back to sitting on the side of the bed?: A little How much help does the patient need moving to and from a bed to a chair (including a wheelchair)?: A little How much help does the patient need to walk in hospital room?: A little How much help does the patient need climbing 3-5 steps with a railing?: A little [facility] 6-Clicks Mobility Assessment Total : 19 Assessment Pt is recovering from subarachnoid hemorrhage sustained presumably from a fall at home. Pt demonstrates focused effort during all activities. No major LOB was observed. Pt reported feeling SOA after walking. VSS with SPO2 99% on room air. Pt states she wants to return home when D/C from hospital. No further PT needs are identified. Impairments: Decreased endurance, ventilation, and/or gas exchange, Impaired cognition/safety awareness, Impaired balance, Impaired gait dynamics/performance, Impaired functional mobility/transfers Activity Limitations: Inability to ambulate community distances Participation Restrictions: Self-care Activity Tolerance: Tolerates 10 - 20 min activity with multiple rests, Walking, Sitting, Standing Evaluation/Treatment Tolerance: Patient limited by fatigue, Treatment limited secondary to medical complications (Comment) Diagnosis: Subarachnoid hemorrhage secondary to fall Barriers to Discharge: Comorbidities Eval Complexity History Profile: 1 - 2 personal factors and/or comorbidities Clinical Presentation: Evolving clinical presentation with changing characteristics Clinical Decision Making: Moderate complexity PT Recommendations Discharge Destination: Home with assistance Discharge Equipment: Rolling walker Plan Patient no longer demonstrates need for inpatient physical therapy services. Patient to be discharged from physical therapy. Written by Maye Banks on 06/27/24 at 3:13 PM. * Care Plan - Lety Lopez RN - 06/27/2024 9:09 AM EDT Problem: Adult Inpatient Plan of Care Goal: Plan of Care Review Outcome: Ongoing, Progressing Goal: Patient-Specific Goal (Individualized) Outcome: Ongoing, Progressing Goal: Absence of Hospital-Acquired Illness or Injury Outcome: Ongoing, Progressing Goal: Optimal Comfort and Wellbeing Outcome: Ongoing, Progressing Goal: Readiness for Transition of Care Outcome: Ongoing, Progressing Problem: Fall Injury Risk Goal: Absence of Fall and Fall-Related Injury Outcome: Ongoing, Progressing * Progress Notes - Dianne Valdes MD - 06/27/2024 8:27 AM EDT Neurosurgery Consult Follow-up Note History, exam, and imaging review with attending and discussed on rounds this morning. Abby Lopez is a 73 y.o. female w/ hx of CVA on plavix with residual L weakness presenting withtrace SAH and L occipital horn IVH s/p fall 1-2 weeks ago. 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 Will sign off. - Thank you for allowing us to participate in the care of this patient. Please call with any questions or concerns. [phone] Dianne Valdes MD Resident Physician, PGY-1 Department of Neurosurgery [facility] Cosigned by Chaitanya Ortiz MD at 06/27/2024 6:03 PM EDT Associated attestation - Chaitanya Ortiz MD - 06/27/2024 6:03 PM EDT I discussed the case with the resident/fellow and agree with the findings and plan as documented. * Care Plan - Esthela Osei RN - 06/26/2024 11:56 PM EDT Problem: Adult Inpatient Plan of Care Goal: Plan of Care Review Outcome: Ongoing, Progressing Goal: Patient-Specific Goal (Individualized) Outcome: Ongoing, Progressing Goal: Absence of Hospital-Acquired Illness or Injury Outcome: Ongoing, Progressing Goal: Optimal Comfort and Wellbeing Outcome: Ongoing, Progressing Goal: Readiness for Transition of Care Outcome: Ongoing, Progressing Problem: Fall Injury Risk Goal: Absence of Fall and Fall-Related Injury Outcome: Ongoing, Progressing * Hospital Course - Mary Ramirez APRN - 06/26/2024 5:08 PM EDT Laxmi Lopez is 73 y/o female with pmhx of syncope, DDD (pain pump) CVA on plavix who presented to ED on 06/26 s/p fall with + LOC and headstrike. Injuries include: R 6th rib fx, IVH, SAH. Past 24h: Laxmi seen resting in bed. A&Ox4. Tolerating Ra. Denies SOA, chest pain, N/V, dizziness, headache, blurred vision. Patient states she has had a few syncopal episodes in the last few weeks. Encouraged her to follow up with PCP for syncopal workup; recommend CTA H&N & echo. Her SAH is stable. Encouraged pulm hygiene and MMPC for rib fx. Abdomen soft, non tender. 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 Voiding spontaneously. Resumed home antihypertensives. Patient denies alcohol/drug use. She has implanted morphine pain pump for DDD. No spinal tenderness with palpation and compression to C/T/L spine. No pelvic tenderness with rotation and palpation. All compartments are soft and compressible. Pulses are palpable and present. No pain outside of acute rib fx and chronic pain. PT/OT pending. Discussed plan of care with patient/family, attending, CM, RN, consulting teams. No further concerns at this time. Physical therapy and occupational therapy evaluated the patient during hospitalization and recommend A; RW At the time of discharge the patient was hemodynamically stable, tolerating PO, voiding spontaneously, normal bowel function, mobilizing appropriately, with their pain controlled with PO medication. At this time, the patient has obtained the maximum benefit from the present hospital stay, and so will be discharged to [facility]; RW DVT prophylaxis: Hold X2 weeks Procedures: None Mobility Restrictions: AAT Other Precautions: No lifting > 10 lbs or lifting overhead x 4 weeks. Incidental Findings: None Follow up: PCP: Follow up in 1-2 weeks post hospitalization with PCP for syncopal workup - recommend CTA head & neck; Last one with 60% stenosis of Right proximal ICA Nsgy: Follow up in 4-6 weeks SGT: [facility] as needed s/p R rib fracture; 0 [facility] First Floor, Wing D Room [address] [place] [address], #[phone]. Questions or Concerns and Appointments If there are questions or concerns after discharge from the hospital, please call [phone] and ask for [facility] Nurse. Working hours are Monday - Monday 8:00 AM to 4:00 PM. After hours, weekends and holidays please call [phone] and ask for the resident oracle ascp consultant for [facility]. For appointments please call [phone]. Medication requests should be made between the hours of 9:00 AM to 3:00 PM Monday thru Monday. Please note that based upon recent changes to [place] law related to prescribing opioid pain medications, our providers will not provide refills on controlled medications after your hospital discharge following a major surgery or trauma. [place], [place] 201 KAR9:260. * H&P - Rosa Bee DO - 06/26/2024 4:21 PM EDTAssociated Order(s): Consult to Trauma Surgery Trauma Alert? No Consult to Trauma Surgery Consult performed by: Rosa Bee DO Consult ordered by: Zain Babin MD Time of Consultation: 1544 Time of Trauma Evaluation: 1600 Arrival Date: 06/26/2024 Arrival Time: 1032 Referring Hospital: N/A Injury Date: 1 week ago Injury Time: unknown Transport Mode: Mechanism of Injury Fall Distance standing Farm Related Injury: no Work Related Injury: no History Of Present Illness Abby Lopez is a 73 y.o. 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 with headache, recurrent falls. She states she had a fall as she was leaving the bathroom about 2 weeks ago where she did lose consciousness. She then had another fall about 1 week ago where she did not lose consciousness. She states since the initial fall, she has felt worsened generalized weakness and right sided headache. She states this is atypical of her prior migraines which are usually right temporal. CT imaging in the ED demonstrated IVH, SAH and NSG was consulted. Old Chart Reviewed: yes Total fluids given prior to arrival 0 ml. 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), H/O absence seizures, Hypertension, Migraine, Personal history of diseases of the blood and blood- forming organs and certain disorders involving the immune mechanism, Personal history of other diseases of the musculoskeletal system and connective tissue, Personal history of other diseases of the musculoskeletal system and connective tissue, Personal history of other diseases of the nervous system and sense organs, Personal history of other endocrine, nutritional and metabolic disease, Personal history of transient ischemic attack (TIA), and cerebral infarction without residual deficits, Personal history of urinary calculi, and Riley's paralysis (CMS/HCC). Reviewed as documented above Surgical History She has a past surgical history that includes Cholecystectomy (N/A); Cardiac pacemaker placement (N/A); and Hysterectomy (N/A). Reviewed as documented above Family History Family History[1] Reviewed as documented above Social History She has no history on file for tobacco use, alcohol use, and drug use. Reviewed as documented above Allergies Lisinopril Reviewed as documented above Medications Current Medications[2] Reviewed as documented above Occupational History Occupational history[3] Employer: No address on file. Reviewed as documented above Immunizations not reviewed VACCINE/DOSE DATE DATE DATE Flu 12/02/2016 Tetanus Pneumovax 10/17/2009 10/03/2016 03/26/2018 Shingles Review of Systems Relevant review of systems was obtained as able and is negative unless stated above in HPI. Physical Exam Vitals and nursing note reviewed. Constitutional: General: She is not in acute distress. Appearance: She is not ill-appearing. HENT: Right Ear: External ear normal. Left Ear: External ear normal. Nose: Nose normal. Mouth/Throat: Mouth: Mucous membranes are moist. Pharynx: Oropharynx is clear. Eyes: Conjunctiva/sclera: Conjunctivae normal. Pupils: Pupils are equal, round, and reactive to light. Cardiovascular: Rate and Rhythm: Normal rate and regular rhythm. Pulmonary: Effort: Pulmonary effort is normal. Chest: Comments: TTP over right lower chest wall. Abdominal: General: Abdomen is flat. Palpations: Abdomen is soft. Musculoskeletal: General: Normal range of motion. Cervical back: Normal range of motion. Skin: General: Skin is warm and dry. Capillary Refill: Capillary refill takes less than 2 seconds. Neurological: General: No focal deficit present. Mental Status: She is oriented to person, place, and time. Rectal exam was deferred. Last Recorded Vitals Blood pressure (!) 177/95, pulse 80, temperature 36.7 ??C (98 ??F), temperature source Oral, resp. rate 16, SpO2 96%. Roger Roger Coma Scale Best Eye Response: Spontaneous Best Verbal Response: Oriented Best Motor Response: Follows commands Roger Coma Scale Score: 15 Intubated No Recent Results Labs in last 18 hours CBC WBC 6.82 Hb 14.5 Plt 341 Hct 40.6 ANC 4.13 INR ??, PTT ??, Anti-Xa ?? BMP Na 135 (L) Cl 100 BUN 9 Glu 164 (H) K 3.7 Co2 19 (L) Cr 1.16 (H) Ca 9.6 iCa ?? Mg ??, Phos ?? Lactate ?? LFT AST 18 AlkPhos 106 T Prot 8.3 (H) ALK 16 Bili 0.4 Alb ?? D.Bili ?? Radiology FAST:Not Done Images associated: N/A Images personally reviewed and consistent with the following: CT Head wo IV Contrast Final Result Small amount of intraventricular and subarachnoid hemorrhage with no significant mass effect, new from prior and most likely associated with known patient trauma. Other chronic findings as above. CRITICAL RESULT: No. COMMUNICATION: Per this written report. Drafted by Zack Linn MD on 06/26/2024 12:01 PM Final report signed by Zack Linn MD on 06/26/2024 12:[address] Chest wo IV Contrast Final Result 1. There is subtle irregularity facilitate nondisplaced fracture of the anterior aspect of the right sixth rib. There is no underlying bone abnormality. Multiple chronic findings as described above. Scattered areas of linear atelectasis. In the anterior aspect of the right middle lobe there are a cluster of nodules that measure between 2 and 5 mm. These may be associated with aspiration CRITICAL RESULT: No. COMMUNICATION: Per this written report. Drafted by Carmella Gonzalez MD on 06/26/2024 2:22 PM Final report signed by Carmella Gonzalez MD on 06/26/2024 2:[address] Head wo IV Contrast (Results Pending) Impression: recurrent falls, SAH, IVH Medical Problems Problem List * (Principal) SAH (subarachnoid hemorrhage) (CMS/HCC) Overview Signed 06/26/2024 4:42 PM by Rosa Bee DO - BIG 3 (on plavix, hx of CVA) - CT Head: Small amount of intraventricular and subarachnoid hemorrhage with no significant mass effect, new from prior and most likely associated with known patient trauma. - NSG following - post 6H CT Head ordered IVH (intraventricular hemorrhage) (CMS/HCC) Overview Signed 06/26/2024 4:42 PM by Rosa Bee DO - BIG 3 (on plavix, hx of CVA) - CT Head: Small amount of intraventricular and subarachnoid hemorrhage with no significant mass effect, new from prior and most likely associated with known patient trauma. - NSG following - post 6H CT Head ordered Recurrent falls History of stroke Overview Signed 06/26/2024 4:39 PM by Rosa Bee DO - w/ residual left sided deficits - hold AC Multilevel degenerative disc disease Overview Addendum 06/26/2024 4:40 PM by Rosa Bee DO - hx of degenerative disc disease - morphine pump - consult PM&R Closed traumatic nondisplaced fracture of one rib of right side Overview Signed 06/26/2024 4:43 PM by Rosa Bee DO CT chest - nondisplaced RT 6th rib fracture - pain control Plan: - as above Rosa Bee DO [1] Family History Problem Relation Name Age of Onset COPD Mother Hypercholesterolemia Mother Conversions - Other Father Malignant neoplastic disease [2] Current Facility-Administered Medications Medication Dose Route Frequency Provider Last Rate Last Admin acetaminophen (Tylenol) tablet 1,000 mg 1,000 mg Oral q6h [facility] Rosa Bee DO 1,000 mg at 06/26/24 1844 sodium chloride 0.9 % flush 10 mL 10 mL Intravenous q12h Rosa Bee DO 10 mL at 06/26/24 184 And sodium chloride 0.9 % flush 10 mL 10 mL Intravenous PRN Rosa Bee DO Current Outpatient Medications Medication Sig Dispense Refill albuterol 108 (90 Base) MCG/ACT inhaler Inhale 2 puffs every 4 (four) hours if needed. alendronate (Fosamax) 70 MG tablet Take 1 tablet (70 mg) by mouth 1 (one) time per week. Mondays amLODIPine (Norvasc) 2.5 MG tablet Take 1 tablet (2.5 mg) by mouth 1 (one) time each day in the morning. Aspirin Low Dose 81 MG EC tablet Take 1 tablet (81 mg) by mouth 1 (one) time each day in the morning. atorvastatin (Lipitor) 80 MG tablet Take 1 tablet (80 mg) by mouth 1 (one) time each day in the morning. carvedilol (Coreg) 25 MG tablet Take 1 tablet (25 mg) by mouth 2 (two) times a day. 60 tablet 11 clopidogrel (Plavix) 75 MG tablet Take 1 tablet (75 mg) by mouth 1 (one) time each day in the morning. Farxiga 5 MG tablet Take 1 tablet (5 mg) by mouth 1 (one) time each day in the morning. hydrOXYzine HCl (Atarax) 25 MG tablet Take 0.5 tablets (12.5 mg) by mouth 3 (three) times a day. lacosamide (Vimpat) 50 MG tablet Take 1 tablet (50 mg) by mouth 1 (one) time each day in the morning. levothyroxine (Synthroid, Levoxyl) 50 MCG tablet Take 1 tablet (50 mcg) by mouth 1 (one) time each day in the morning. pantoprazole (ProtoNix) 20 MG EC tablet Take 2 tablets (40 mg) by mouth 1 (one) time each day in the morning. pregabalin (Lyrica) 50 MG capsule Take 1 capsule (50 mg) by mouth 2 (two) times a day. primidone (Mysoline) 50 MG tablet Take 1 tablet (50 mg) by mouth 2 (two) times a day. topiramate 50 MG tablet Take 1 tablet (50 mg) by mouth 2 (two) times a day. traZODone (Desyrel) 100 MG tablet Take 2 tablets (200 mg) by mouth every night. [3] Cosigned by Saira Woodward MD at 07/01/2024 11:30 PM EDT Associated attestation - Saira Woodward MD - 07/01/2024 11:30 PM EDT I saw and evaluated the patient with the resident/fellow. I discussed the case with the resident/fellow and agree with the findings and plan as documented. * Consults - Dianne Valdes MD - 06/26/2024 12:59 PM EDTAssociated Order(s): IP CONSULT TO NEUROSURGERY Reason For Consult fall Requesting Service: ED Requested Date/Time: 06/26/2024 3:23 PM History Of Present Illness Abby Lopez is a 73 y.o. female w/ hx of CVA on plavix with residual L weakness presenting withtrace SAH and L occipital horn IVH s/p fall 1-2 weeks ago. She endorses a GARCIA but denies any worsening deficits. 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), H/O absence seizures, Hypertension, Migraine, Personal history of diseases of the blood and blood- forming organs and certain disorders involving the immune mechanism, Personal history of other diseases of the musculoskeletal system and connective tissue, Personal history of other diseases of the musculoskeletal system and connective tissue, Personal history of other diseases of the nervous system and sense organs, Personal history of other endocrine, nutritional and metabolic disease, Personal history of transient ischemic attack (TIA), and cerebral infarction without residual deficits, Personal history of urinary calculi, and Riley's paralysis (CMS/HCC). Surgical History She has a past surgical history that includes Cholecystectomy (N/A); Cardiac pacemaker placement (N/A); and Hysterectomy (N/A). Family History Family History[1] Social History She has no history on file for tobacco use, alcohol use, and drug use. Medications Current Medications[2] Allergies Lisinopril Review of Systems 14 point review of systems was performed and was negative except as noted per HPI. 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) Remainder of CN2-12 grossly intact Last Recorded Vitals Visit Vitals BP (!) 169/96 (BP Location: Right arm, Patient Position: Lying) Pulse 76 Temp 36.7 ??C (98.1 ??F) (Oral) Resp 18 SpO2 98% Labs Results from last 7 days Lab Units 06/26/24 1117 SODIUM mmol/L 135* POTASSIUM mmol/L 3.7 CHLORIDE mmol/L 100 CO2 mmol/L 19* BUN mg/dL 9 CREATININE mg/dL 1.16* EGFR mL/min/1.73m*2 49.9 GLUCOSE mg/dL 164* CALCIUM mg/dL 9.6 Results from last 7 days Lab Units 06/26/24 1117 ALKALINE PHOSPHATASE U/L 106 BILIRUBIN TOTAL mg/dL 0.4 ALT U/L 16 AST U/L 18 Results from last 7 days Lab Units 06/26/24 1117 WBC 10*3/uL 6.82 HEMOGLOBIN g/dL 14.5 HEMATOCRIT % 40.6 PLATELETS 10*3/uL 341 Imaging I personally reviewed CTH demonstrating minimal L occipital horn IVH with trace SAH Assessment and Plan Abby Lopez is a 73 y.o. female w/ hx of CVA on plavix with residual L weakness presenting withtrace SAH and L occipital horn IVH s/p fall 1-2 weeks ago. At neurologic baseline - No acute neurosurgical intervention warranted at this time - Obtain repeat CTH 6 hours after initial to assess for ongoing bleeding - If bleed is stable on repeat scan, no further intervention warranted - Hold antiplatelet and anticoagulant medications for two weeks unless holding medications is strongly contraindicated - Hold DVT ppx for at least 24 hours following demonstration of stable bleed - Rest of care per primary team Thank you for allowing us to participate in the care of this patient. Please call if you have any further questions or concerns. Assessment/Plan Active Problems: There are no active Hospital Problems. Dianne Valdes MD Resident Physician, PGY-1 Department of Neurosurgery [facility] [1] Family History Problem Relation Name Age of Onset COPD Mother Hypercholesterolemia Mother Conversions - Other Father Malignant neoplastic disease [2] No current facility-administered medications for this encounter. Current Outpatient Medications Medication Sig Dispense Refill albuterol 108 (90 Base) MCG/ACT inhaler Inhale 2 puffs every 4 (four) hours if needed. kennethronate (Fosamax) 70 MG tablet Take 1 tablet (70 mg) by mouth 1 (one) time per week. Mondays amLODIPine (Norvasc) 2.5 MG tablet Take 1 tablet (2.5 mg) by mouth 1 (one) time each day in the morning. Aspirin Low Dose 81 MG EC tablet Take 1 tablet (81 mg) by mouth 1 (one) time each day in the morning. atorvastatin (Lipitor) 80 MG tablet Take 1 tablet (80 mg) by mouth 1 (one) time each day in the morning. carvedilol (Coreg) 25 MG tablet Take 1 tablet (25 mg) by mouth 2 (two) times a day. 60 tablet 11 clopidogrel (Plavix) 75 MG tablet Take 1 tablet (75 mg) by mouth 1 (one) time each day in the morning. Farxiga 5 MG tablet Take 1 tablet (5 mg) by mouth 1 (one) time each day in the morning. hydrOXYzine HCl (Atarax) 25 MG tablet Take 0.5 tablets (12.5 mg) by mouth 3 (three) times a day. lacosamide (Vimpat) 50 MG tablet Take 1 tablet (50 mg) by mouth 1 (one) time each day in the morning. levothyroxine (Synthroid, Levoxyl) 50 MCG tablet Take 1 tablet (50 mcg) by mouth 1 (one) time each day in the morning. pantoprazole (ProtoNix) 20 MG EC tablet Take 2 tablets (40 mg) by mouth 1 (one) time each day in the morning. pregabalin (Lyrica) 50 MG capsule Take 1 capsule (50 mg) by mouth 2 (two) times a day. primidone (Mysoline) 50 MG tablet Take 1 tablet (50 mg) by mouth 2 (two) times a day. topiramate 50 MG tablet Take 1 tablet (50 mg) by mouth 2 (two) times a day. traZODone (Desyrel) 100 MG tablet Take 2 tablets (200 mg) by mouth every night. Cosigned by Chaitanya Ortiz MD at 06/27/2024 6:02 PM EDT Associated attestation - Chaitanya Ortiz MD - 06/27/2024 6:02 PM EDT I saw and evaluated the patient with the resident/fellow. I discussed the case with the resident/fellow and agree with the findings and plan as documented. * ED Provider Notes - Yoni Avendano MD - 06/26/2024 10:32 AM EDT Images from the original note were not included. - HPI Chief Complaint Patient presents with Multiple Complaints PIT Note Abby Lopez is a 73 y.o. female who presents to ED with 2 episodes of falling within the past week. Pt denies tripping over anything, states I may have fainted. Pt reports to ED today pt reporting headache, generalized weakness, and R rib pain. +BT. Pt does endorse some recent nasal congestion. Pt has a pacemaker. Patient denies fever, chills, cough, chest pain, shortness of breath, nausea,vomiting, and diarrhea. Additional HPI: Patient is a 73 year old female with a PMH of HTN, bradycardia with pacemaker, CKD,T2DM, prior CVA on plavix who presents following a 2 falls. Patient reports that she fell initially1.5 week ago and fell again a few days later. Patient reports LOC and hitting her head during the falls. She denied any acute changes to her strength of sensation following the falls. She denied any recent blood loss, illness, chest pain, palpitations, nausea/vomiting, history of aortic stenosis, or vasovagal prodrome. Patient reports she was seen by her PCP 3 days ago and all BP medications werediscontinued due to hypotension. 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 Constitutional: General: She is not in acute distress. Appearance: Normal appearance. HENT: Head: Normocephalic and atraumatic. Nose: No rhinorrhea. Mouth/Throat: Mouth: Mucous membranes are moist. Pharynx: Oropharynx is clear. Eyes: General: Right eye: No discharge. Left eye: No discharge. Conjunctiva/sclera: Conjunctivae normal. Pupils: Pupils are equal, round, and reactive to light. Pulmonary: Effort: Pulmonary effort is normal. No respiratory distress. Breath sounds: No stridor. Musculoskeletal: General: Normal range of motion. Cervical back: No rigidity. Skin: General: Skin is warm and dry. Neurological: Mental Status: She is alert and oriented to person, place, and time. Comments: Residual and stable right sided deficits from prior CVA Psychiatric: Mood and Affect: Mood normal. Behavior: Behavior normal. EASI ?? Total Score: 0 Kimberly Coma Scale Score: 15 TRST Assessment Total: 1 ED Course & MDM - Assessment: 73 y.o. female presents to ED with complaint of falls. It should be noted that the chronic conditions includes HTN, bradycardia with pacemaker, CKD, T2DM, prior CVA on plavix, which currently is not at goal therapy. This complicates the clinical picture because it Comorbidities: may be exacerbatingsymptoms and increases the amount and complexity of data to be reviewed Differential Diagnosis: intraventricular hemorrhage 2/2 fall, orthostatic hypotension, cardiogenic syncope In order to fully explore the differential diagnosis the following treatments and tests were ordered: All Other Orders Ordered Status Ordering Provider 06/26/[address] Head wo IV Contrast Once Final result YONI AVENDANO 06/26/24 1647 Mobility Orders Until discontinued Acknowledged SCOCCA, ROSA L 06/26/24 1647 PT eval and treat Until therapy completed Acknowledged SCOCCA, ROSA L 06/26/24 1647 OT eval and treat Until therapy completed Acknowledged SCOCCA, ROSA L 06/26/24 164 Sequential compression device Until discontinued Comments: SCDs must be in place and turned on EXCEPT when ACTIVELY ambulating. Acknowledged SCOCCA, ROSA L 06/26/24 1647 Do Not Give Nicotine Replacement Until discontinued Acknowledged SCOCCA, ROSA L 06/26/24 164 Full code Continuous Acknowledged SCOCCA, ROSA L 06/26/24 1647 Diet effective now Canceled EMELIARADHAROSA L 06/26/24 1647 Notify Provider Until discontinued Acknowledged SCOCCA ROSA L 06/26/24 1647 Vital Signs Until discontinued Comments: Every 1Hr x4, Then Every 4hrs Thereafter. Acknowledged SCOCCA, ROSA L 06/26/24 1647 Intake and Output - Strict Per unit protocol Acknowledged SCOCCA, ROSA L 06/26/24 1647 Neuro checks Until discontinued Comments: Every 1Hr x4, Then Every 4Hrs x6, Then Every 8Hrs Thereafter. Acknowledged SCOCCA ROSA L 06/26/24 1647 Insert peripheral IV Once Placed in And Linked Group Acknowledged SCOCCA, ROSA L 06/26/24 1647 Saline lock IV Once Placed in And Linked Group Acknowledged SCOCCA, ROSA L 06/26/24 1647 Admit to inpatient Once Completed EMELIA ROSA L 06/26/24 1544 Consult to Trauma Surgery Once Specialty: Trauma Surgery Provider: (Not yet assigned) Completed YONI AVENDANO 06/26/24 1209 Troponin T, High Sensitivity, 2 Hour, Plasma PROCEDURE ONCE Final result MAY GAO 06/26/24 1301 Consult to Neurosurgery Once Specialty: Neurosurgery Provider: (Not yet assigned) Completed YONI AVENDANO 06/26/[address] Chest wo IV Contrast Once Final result MAY GAO 06/26/24 1106 BNP STAT Final result MAY GAO 06/26/24 1106 Thyroid Stimulating Hormone, Plasma STAT Final result MAY GAO 06/26/24 1106 Free T4, Plasma STAT Final result MAY GAO 06/26/24 1106 Troponin now and 120 min STAT Final result MAY GAO 06/26/24 1106 Cardiac monitoring Until discontinued Acknowledged MAY GAO 06/26/[address] Head wo IV Contrast Once Final result MAY GAO 06/26/24 1106 Urinalysis with reflex microscopic AND reflex culture (IF UTI SUSPECTED) Once Preliminary result MAY GAO 06/26/24 1106 Urinalysis with reflex microscopic (Culture NOT Included) PROCEDURE ONCE Final result MAY GAO 06/26/24 1106 Urine Jules Panel PROCEDURE ONCE Preliminary result GAOMAY GUNDERSON 06/26/24 1106 CBC w/diff STAT Final result MAY GAO 06/26/24 1106 CMP STAT Final result MAY GAO 06/26/24 1040 EKG now - STAT (adult) Once Final result LAU DIMAS [facility] ED Course as of 06/26/242149June 26, 20242137 CT Head wo IV Contrast Minimal intraventricular hemorrhage. [CH] 2138 CT Chest wo IV Contrast nondisplaced fracture of the anterior aspect of the right sixth rib [CH] 2138 EKG now - STAT (adult) No ACS or tachyarrhythmia [CH] 2138 CBC w/diff(!) No leukocytosis [CH] 2139 CMP(!) Stable creatinine [CH] 2140 Troponin T, High Sensitivity, 2 Hour, Plasma(!) No significant delta [CH] 2140 MDM: Patient is a 73 year old female with a PMH of HTN, bradycardia with pacemaker, CKD, T2DM,prior CVA on plavix who presents following a 2 falls. Patient was HDS while in the ED. Neurologicalexam was reassuring and was only significant for chronic deficits from prior CVA. CT head showed minimal intraventricular hemorrhage and CT chest showed fracture of the right 6th rib. Trauma surgery was consulted and she was deemed appropriate for admission. [CH] ED Course User Index [CH] Yoni Avendano MD Clinical Impressions as of 06/26/242149 Syncope, unspecified syncope type Social Determinates of Health Risks (including Economic Stability, Education and level of understanding, Healthcare access and quality and concerning social factors): Poor health literacy Ultimately, this patient was Was admitted (Admission) The encounter diagnosis was Syncope, unspecified syncope type.. Patient believed to require admission for the listed diagnoses. The Trauma Surgery service was consulted for admission and was agreeable to admit to Acute Floor (Med/Surg). ED Prescriptions None Disposition Admit Admitting/Attending Physician: SAIRA WOODWARD [[id number]] Provider Care Team: SGT FLOOR 2 [[id number]] Are they the primary team?: Yes [1] - Date/Time: 06/26/2024/9:50 PM Entered by Radha Erickson, acting as scribe for Dr. May Gao. Scribe Attestation: This note was dictated to me, Radha Erickson, acting as a scribe for Dr. Roman. Attending Attestation: The documentation was recorded by Radha Erickson acting as scribe in my presence at the time of the encounter and accurately reflects the service I personally performed. 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) H/O absence seizures Hypertension Migraine complex migraine Personal history of diseases of the blood and blood-forming organs and certain disorders involving the immune mechanism History of anemia Personal history of other diseases of the musculoskeletal system and connective tissue History of fibromyalgia Personal history of other diseases of the musculoskeletal system and connective tissue History of osteoporosis Personal history of other diseases of the nervous system and sense organs History of seizure disorder Personal history of other endocrine, nutritional and metabolic disease History of hyperlipidemia Personal history of transient ischemic attack (TIA), and cerebral infarction without residual deficits History of stroke Personal history of urinary calculi History of renal calculi 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) [2] Past Surgical History: Procedure Laterality Date CARDIAC PACEMAKER PLACEMENT N/A Pacemaker Placement from [employer] CHOLECYSTECTOMY N/A Cholecystectomy from [employer] HYSTERECTOMY N/A Hysterectomy from [employer] [3] Family History Problem Relation Name Age of Onset COPD Mother Hypercholesterolemia Mother Conversions - Other Father Malignant neoplastic disease [4] Tobacco Use Smoking status: Never Smokeless tobacco: Never Substance Use Topics Alcohol use: Never Drug use: Never [5] Allergies Allergen Reactions Lisinopril Itching Yoni Avendano MD Resident 06/26/24 698 Cosigned by Dimas Lau MD at 06/27/2024 6:26 PM EDT Associated attestation - Dimas Lau MD - 06/27/2024 6:26 PM EDT I saw and evaluated the patient with the resident/fellow. I discussed the case with the resident/fellow and agree with the findings and plan as documented. * ED Triage Notes - Fawn Byrd, RN - 06/26/2024 10:32 AM EDT Pt presents for x2 episodes of falling. Pt states the fall was x1 week ago. Pt denies tripping overanything, states I may have fainted. Today pt reporting headache, generalized weakness, and R ribpain. +BT. Pt reports hitting head in both falls with + LOC with first fall. documented in this encounter Plan of Treatment Upcoming Encounters Date Type Department Care Team (Late st Contact Info) Description 08/22/2024 8:30 AM EDT Appointment [facility] [address] [place] [phone] 08/22/2024 9:40 AM EDT [facility] Visit [facility] [address], [address] [place] [phone] Sonia Up PA [address] [place] [phone] 10/18/2024 8:15 AM EDT Office Visit [facility] [address] [facility], [address] [place] [phone] Carlitos Cowart, [address] [place] [address] Scheduled Referrals Name Type Priority Associated Diagnoses Order Schedule Discharge Ambulatory referral to Neurosurgery Outpatient Referral Routine Recurrent falls Expected: 08/07/2024, Expires: 12/28/2025 documented as of this encounter Procedures Procedure Name Priority Date/Time Associated Diagnosis Comments CT HEAD WO IV CONTRAST Timed 6:33 PM EDT URINALYSIS WITH REFLEX MICROSCOPIC AND CULTURE STAT 06/26/2024 2:22 PM EDT URINE JULES PANEL STAT 06/26/2024 2:22 PM EDT URINALYSIS WITH REFLEX MICROSCOPIC STAT 06/26/2024 2:22 PM EDT TROPONIN T, HIGH SENSITIVITY, 2 HOUR, PLASMA Timed 06/26/2024 1:[address] CHEST WO IV CONTRAST STAT 06/26/2024 11:[address] HEAD WO IV CONTRAST STAT 11:54 AM EDT TROPONIN T, HIGH SENSITIVITY, 0 HOUR, PLASMA, REFLEX TO 2 HOUR STAT 06/26/2024 11:17 AM EDT N-TERMINAL PROBNP, PLASMA STAT 06/26/2024 11:17 AM EDT CBC WITH AUTO DIFFERENTIAL STAT 06/26/2024 11:17 AM EDT TSH STAT 06/26/2024 11:17 AM EDT FREE T4, PLASMA STAT 06/26/2024 11:17 AM EDT COMPREHENSIVE METABOLIC PANEL, PLASMA STAT 06/26/2024 11:17 AM EDT ECG ADULT STAT 06/26/2024 10:46 AM EDT documented in this encounter Results * CT Head wo IV Contrast (06/26/2024 6:33 PM EDT) Anatomical Region Laterality Modality Head Computed Tomogra phy Impressions 06/26/2024 8:36 PM EDT 1. Minimal intraventricular hemorrhage. No other intracranial hemorrhage. 2. Chronic ischemic changes. CRITICAL RESULT: No. COMMUNICATION: Per this written report. Drafted by Luz Noble MD on 06/26/2024 8:33 PM Final report signed by Luz Noble MD on 06/26/2024 8:36 PM Narrative 06/26/2024 8:36 PM EDT CLINICAL INDICATION: Syncope/presyncope, cerebrovascular cause suspected TECHNIQUE: Spiral axial CT images of the head were obtained without contrast administration. Total DLP (Dose-Length Product): 793.85 mGy.cm. Please note: The reported value represents the total of one or more individual components during the CT acquisition on this date and at this time, and as such, the same value may appear in more than one CT report depending on the interpreting/reporting physicians. COMPARISON: Head CT performed 6 hours prior FINDINGS: Diagnostic Quality: Adequate. Minimal intraventricular hemorrhage is again noted in the occipital horns. No other intracranial hemorrhage is appreciated. There is moderate chronic small vessel ischemic disease in the cerebral white matter. Encephalomalacia in the left inferior temporal lobe with ex vacuo dilatation of the left temporal horn. Chronic infarction in the left occipital pole. No midline shift or obstructive hydrocephalus. Basal cisterns are patent. Soft Tissues: No significant soft tissue swelling is present. Skull: There are no calvarial destructive lesions or fractures. Sinuses and Mastoids: The visualized portions of the paranasal sinuses are clear. The mastoid air cells are clear. Procedure Note Luz Noble MD - 06/26/2024 CLINICAL INDICATION: Syncope/presyncope, cerebrovascular cause suspected TECHNIQUE: Spiral axial CT images of the head were obtained without contrastadministration. Total DLP (Dose-Length Product): 793.85 mGy.cm. Please note: The reportedvalue represents the total of one or more individual components during theCT acquisition on this date and at this time, and as such, the same valuemay appear in more than one CT report depending on theinterpreting/reporting physicians. COMPARISON: Head CT performed 6 hours prior FINDINGS: Diagnostic Quality: Adequate. Minimal intraventricular hemorrhage is again noted in the occipital horns.No other intracranial hemorrhage is appreciated. There is moderate chronicsmall vessel ischemic disease in the cerebral white matter.Encephalomalacia in the left inferior temporal lobe with ex vacuodilatation of the left temporal horn. Chronic infarction in the leftoccipital pole. No midline shift or obstructive hydrocephalus. Basalcisterns are patent. Soft Tissues: No significant soft tissue swelling is present. Skull: There are no calvarial destructive lesions or fractures. Sinuses and Mastoids: The visualized portions of the paranasal sinuses areclear. The mastoid air cells are clear. IMPRESSION: 1. Minimal intraventricular hemorrhage. No other intracranialhemorrhage. 2. Chronic ischemic changes. CRITICAL RESULT: No. COMMUNICATION: Per this written report. Drafted by Luz Noble MD on 06/26/2024 8:33 PM Final report signed by Luz Noble MD on 06/26/2024 8:36 PM us Dimas Lau MD IMG CT PROCEDURES Final Resu lt * Urine Jules Panel (06/26/2024 2:22 PM EDT) Extra Reflex urine culture not indicated 06/26/2024 11:01 PM EDT [facility] Comment: Previously prelim verified as Specimen evaluation in progress on 06/26/2024 at 1601 EDT. Previously prelim verified as Specimen evaluation in progress on 06/26/2024 at 1701 EDT. Previously prelim verified as Specimen evaluation in progress on 06/26/2024 at 1810 EDT. Previously prelim verified as Specimen evaluation in progress on 06/26/2024 at 1902 EDT. Previously prelim verified as Specimen evaluation in progress on 06/26/2024 at 2002 EDT. Previously prelim verified as Specimen evaluation in progress on 06/26/2024 at 2101 EDT. Previously prelim verified as Specimen evaluation in progress on 06/26/2024 at 2202 EDT. Urine Urine specimen obtained by clean catch procedure / Unknown Non-blood Collection / Unknown 06/26/2024 2:22 PM EDT 06/26/2024 2:51 PM EDT us May Gao MD LAB URINE ORDERABLES Final Result [facility] [address] [place] [address] * (ABNORMAL) Urinalysis with reflex microscopic (Culture NOT Included) (06/26/2024 2:22 PM EDT) Color, Urine Yellow LAB URINALYSIS - AUTOMATED METHOD 06/26/2024 2:34 PM EDT [facility] Clarity, Urine Clear LAB URINALYSIS - AUTOMATED METHOD 06/26/2024 2:34 PM EDT [facility] Spec Ledbetter, Urine 1.010 1.005 - 1.030 LAB URINALYSIS - AUTOMATED METHOD 06/26/2024 2:34 PM EDT [facility] pH, Urine 6.5 5.0 - 8.0 LAB URINALYSIS - AUTOMATED METHOD 06/26/2024 2:34 PM EDT [facility] Protein, Urine 30(A) Negative mg/dL LAB URINALYSIS - AUTOMATED METHOD 06/26/2024 2:34 PM EDT [facility] Glucose, Urine 500(A) Negative mg/dL LAB URINALYSIS - AUTOMATED METHOD 06/26/2024 2:34 PM EDT [facility] Ketones, Urine Negative Negative mg/dL LAB URINALYSIS - AUTOMATED METHOD 06/26/2024 2:34 PM EDT [facility] Blood, Urine Negative Negative LAB URINALYSIS - AUTOMATED METHOD 06/26/2024 2:34 PM EDT [facility] Bilirubin, Urine Negative Negative LAB URINALYSIS - AUTOMATED METHOD 06/26/2024 2:34 PM EDT [facility] Urobilinogen, Urine 0.2 0.2 to 1.0 mg/dL LAB URINALYSIS - AUTOMATED METHOD 06/26/2024 2:34 PM EDT [facility] Leukocytes, Urine Negative Negative LAB URINALYSIS - AUTOMATED METHOD 06/26/2024 2:34 PM EDT [facility] Nitrite, Urine Negative Negative LAB URINALYSIS - AUTOMATED METHOD 06/26/2024 2:34 PM EDT [facility] Urine Urine specimen obtained by clean catch procedure / Unknown Non-blood Collection / Unknown 06/26/2024 2:22 PM EDT 06/26/2024 2:31 PM EDT us May Gao MD LAB URINE ORDERABLES Final Result [facility] [address] [place] [address] * (ABNORMAL) Troponin T, High Sensitivity, 2 Hour, Plasma (06/26/2024 1:20 PM EDT) Troponin T, High Sensitivity, 2 Hour 16(H) <14 ng/L 06/26/2024 1:47 PM EDT [facility] Troponin Delta 0 <10 ng/L 06/26/2024 1:47 PM EDT [facility] Troponin Delta Interpretation Not Significant 06/26/2024 1:47 PM EDT [facility] Comment:Not Significant. No acute change in troponin observed between the baseline and 2 hour samples. Blood Venous blood specimen / Unknown Venipuncture / Unknown 06/26/2024 1:20 PM EDT 06/26/2024 1:25 PM EDT May Gao MD LAB BLOOD ORDERABLES Final Result Performing Organization Address [facility] de Phone Number [facility] [address] [place] [address] * CT Chest wo IV Contrast (06/26/2024 11:54 AM EDT) Anatomical Region Laterality Modality Chest Computed Tomogra phy Impressions 06/26/2024 2:32 PM EDT 1. There is subtle irregularity facilitate nondisplaced fracture of the anterior aspect of the right sixth rib. There is no underlying bone abnormality. Multiple chronic findings as described above. Scattered areas of linear atelectasis. In the anterior aspect of the right middle lobe there are a cluster of nodules that measure between 2 and 5 mm. These may be associated with aspiration CRITICAL RESULT: No. COMMUNICATION: Per this written report. Drafted by Carmella Gonzalez MD on 06/26/2024 2:22 PM Final report signed by Carmella Gonzalez MD on 06/26/2024 2:32 PM Narrative 06/26/2024 2:32 PM EDT CLINICAL INDICATION: Right rib pain after falls TECHNIQUE: Imaging of the chest was performed from thoracic inlet through upper abdomen, using spiral technique, without administration of IV contrast. Reformatted images in the coronal and sagittal planes were generated from the axial data set to facilitate diagnostic accuracy. Total DLP (Dose-Length Product): 1266.70 mGy.cm. Please note: The reported value represents the total of one or more individual components during the CT acquisition on this date and at this time, and as such, the same value may appear in more than one CT report depending on the interpreting/reporting physicians. COMPARISON: None. FINDINGS: Chest: Lack of IV contrast limits evaluation of thoracic organs and vessels. Aorta/Vessels: Thoracic aorta is within normal limits given the lack of IV contrast. Pleural/Pericardial Space: No pneumothorax. No pleural effusions. No pericardial effusion. Lymph Nodes: No lymphadenopathy within the chest. Lungs: Linear atelectasis in the right lateral upper lobe and in the right middle lobe. Tiny nodular opacification measuring approximately 2 to 5 mm in diameter are seen in the right middle lobe. Linear atelectasis along the anterior aspect of the left lower lobe Mediastinum: Heart size is within normal limits. There is vascular calcification in the coronary arteries. Pacer lead wires are present. Chest Wall: Left-sided cardiac pacer in the anterior chest wall Bones: Orthopedic hardware in the left humeral head. Nondisplaced Fracture in the anterior aspect of the right sixth rib. No other rib fractures are appreciated. There is diffuse osteopenia. Old fracture seen in the superior aspect of the body of the sternum. There is very slight displacement at the healed fracture site. There is degenerative change at multiple levels of the thoracic spine particularly at the T2 and T3 superior endplates. There is collapse of the T12 vertebrae and there has been vertebroplasty Upper Abdomen: Cortical thinning of the kidneys. Vascular calcifications in the abdominal vasculature. Status post cholecystectomy. Procedure Note Carmella Gonzalez MD - 06/26/2024 CLINICAL INDICATION: Right rib pain after falls TECHNIQUE: Imaging of the chest was performed from thoracic inlet through upperabdomen, using spiral technique, without administration of IV contrast.Reformatted images in the coronal and sagittal planes were generated fromthe axial data set to facilitate diagnostic accuracy. Total DLP (Dose-Length Product): 1266.70 mGy.cm. Please note: The reportedvalue represents the total of one or more individual components during theCT acquisition on this date and at this time, and as such, the same valuemay appear in more than one CT report depending on theinterpreting/reporting physicians. COMPARISON: None. FINDINGS: Chest: Lack of IV contrast limits evaluation of thoracic organs and vessels. Aorta/Vessels: Thoracic aorta is within normal limits given the lack of IVcontrast. Pleural/Pericardial Space: No pneumothorax. No pleural effusions. Nopericardial effusion. Lymph Nodes: No lymphadenopathy within the chest. Lungs: Linear atelectasis in the right lateral upper lobe and in the rightmiddle lobe. Tiny nodular opacification measuring approximately 2 to 5 mmin diameter are seen in the right middle lobe. Linear atelectasis alongthe anterior aspect of the left lower lobe Mediastinum: Heart size is within normal limits. There is vascularcalcification in the coronary arteries. Pacer lead wires are present. Chest Wall: Left-sided cardiac pacer in the anterior chest wall Bones: Orthopedic hardware in the left humeral head. Nondisplaced Fracturein the anterior aspect of the right sixth rib. No other rib fractures areappreciated. There is diffuse osteopenia. Old fracture seen in thesuperior aspect of the body of the sternum. There is very slightdisplacement at the healed fracture site. There is degenerative change atmultiple levels of the thoracic spine particularly at the T2 and E9skpwsdch endplates. There is collapse of the T12 vertebrae and there hasbeen vertebroplasty Upper Abdomen: Cortical thinning of the kidneys. Vascular calcificationsin the abdominal vasculature. Status post cholecystectomy. IMPRESSION: 1. There is subtle irregularity facilitate nondisplaced fracture of theanterior aspect of the right sixth rib. There is no underlying boneabnormality. Multiple chronic findings as described above. Scattered areas of linear atelectasis. In the anterior aspect of the rightmiddle lobe there are a cluster of nodules that measure between 2 and 5mm. These may be associated with aspiration CRITICAL RESULT: No. COMMUNICATION: Per this written report. Drafted by Carmella Gonzalez MD on 06/26/2024 2:22 PM Final report signed by Carmella Gonzalez MD on 06/26/2024 2:32 PM us May Gao MD IMG CT PROCEDURES Final Res ult * CT Head wo IV Contrast (06/26/2024 11:54 AM EDT) Anatomical Region Laterality Modality Head Computed Tomogra phy Impressions 06/26/2024 12:07 PM EDT Small amount of intraventricular and subarachnoid hemorrhage with no significant mass effect, new from prior and most likely associated with known patient trauma. Other chronic findings as above. CRITICAL RESULT: No. COMMUNICATION: Per this written report. Drafted by Zack Linn MD on 06/26/2024 12:01 PM Final report signed by Zack Linn MD on 06/26/2024 12:07 PM Narrative 06/26/2024 12:07 PM EDT CLINICAL INDICATION: Fall, dizziness TECHNIQUE: Spiral axial CT images of the head were obtained without contrast administration. Total DLP (Dose-Length Product): 1266.70 mGy.cm. Please note: The reported value represents the total of one or more individual components during the CT acquisition on this date and at this time, and as such, the same value may appear in more than one CT report depending on the interpreting/reporting physicians. COMPARISON: CT head from 12/30/2023 FINDINGS: Diagnostic Quality: Adequate. Small amount of hyperdensity is noted in the left occipital horn and in the posterior portions of the left sylvian fissure, new as compared with prior examination. Otherwise there is grossly unchanged area of volume loss and encephalomalacia in the left temporal occipital region with ex vacuo dilation of the left lateral ventricle, there is redemonstration of multiple patchy and other confluent areas of hypoattenuation in the subcortical and periventricular white matter bilaterally, nonspecific but likely chronic small vessel ischemia. No definite extra-axial lesions are seen. No acute bony abnormalities are noted. Procedure Note Zack Chung MD - 06/26/2024 CLINICAL INDICATION: Fall, dizziness TECHNIQUE: Spiral axial CT images of the head were obtained without contrastadministration. Total DLP (Dose-Length Product): 1266.70 mGy.cm. Please note: The reportedvalue represents the total of one or more individual components during theCT acquisition on this date and at this time, and as such, the same valuemay appear in more than one CT report depending on theinterpreting/reporting physicians. COMPARISON: CT head from 12/30/2023 FINDINGS: Diagnostic Quality: Adequate. Small amount of hyperdensity is noted in the left occipital horn and inthe posterior portions of the left sylvian fissure, new as compared withprior examination. Otherwise there is grossly unchanged area of volume loss andencephalomalacia in the left temporal occipital region with ex vacuodilation of the left lateral ventricle, there is redemonstration ofmultiple patchy and other confluent areas of hypoattenuation in thesubcortical and periventricular white matter bilaterally, nonspecific butlikely chronic small vessel ischemia. No definite extra-axial lesions are seen. No acute bony abnormalities arenoted. IMPRESSION: Small amount of intraventricular and subarachnoid hemorrhage with nosignificant mass effect, new from prior and most likely associated withknown patient trauma. Other chronic findings as above. CRITICAL RESULT: No. COMMUNICATION: Per this written report. Drafted by Zack Linn MD on 06/26/2024 12:01 PM Final report signed by Zack Linn MD on 06/26/2024 12:07 PM May Gao MD IMG CT PROCEDURES Final Res ult * Free T4, Plasma (06/26/2024 11:17 AM EDT) Free T4, Plasma 1.2 0.8 - 1.7 ng/dL 06/26/2024 12:09 PM EDT [facility] Blood Venous blood specimen / Unknown Venipuncture / Unknown 06/26/2024 11:17 AM EDT 06/26/2024 11:35 AM EDT May Gao MD LAB BLOOD ORDERABLES Final Result [facility] [address] [place] [address] * (ABNORMAL) Thyroid Stimulating Hormone, Plasma (06/26/2024 11:17 AM EDT) Thyroid Stimulating Hormone, Plasma 4.21(H) 0.40 - 4.20 uIU/mL 06/26/2024 12:09 PM EDT [facility] Blood Venous blood specimen / Unknown Venipuncture / Unknown 06/26/2024 11:17 AM EDT 06/26/2024 11:35 AM EDT us May Gao MD LAB BLOOD ORDERABLES Final Result Performing Organization Address [facility]/ZIP Co de Phone Number [facility] [address] [place] [address] * BNP (06/26/2024 11:17 AM EDT) N-Terminal, PROBNP, Plasma 358 0 - 899 pg/mL 06/26/2024 12:09 PM EDT [facility] Blood Venous blood specimen / Unknown Venipuncture / Unknown 06/26/2024 11:17 AM EDT 06/26/2024 11:35 AM EDT us May Gao MD LAB BLOOD ORDERABLES Final Result Performing Organization Address [facility] Co de Phone Number [facility] [address] [place] [address] * (ABNORMAL) Troponin now and 120 min (06/26/2024 11:17 AM EDT) Troponin T, High Sensitivity, 0 Hour 16(H) <14 ng/L 06/26/2024 12:09 PM EDT [facility] Blood Venous blood specimen / Unknown Venipuncture / Unknown 06/26/2024 11:17 AM EDT 06/26/2024 11:35 AM EDT May Gao MD LAB BLOOD ORDERABLES Final Result Performing Organization Address [facility] Co de Phone Number [facility] [address] [place] [address] * (ABNORMAL) CMP (06/26/2024 11:17 AM EDT) Glucose, Plasma 164(H) 74 - 99 mg/dL 06/26/2024 12:09 PM EDT [facility] BUN, Plasma 9 8 - 23 mg/dL 06/26/2024 12:09 PM EDT [facility] Creatinine, Plasma 1.16(H) 0.60 - 1.10 mg/dL 06/26/2024 12:09 PM EDT [facility] BUN/Creatinine Ratio 8 06/26/2024 12:09 PM EDT [facility] Sodium, Plasma 135(L) 136 - 145 mmol/L 06/26/2024 12:09 PM EDT [facility] Potassium, Plasma 3.7 3.6 - 4.9 mmol/L 06/26/2024 12:09 PM EDT [facility] Chloride, Plasma 100 97 - 107 mmol/L 06/26/2024 12:09 PM EDT [facility] CO2, Plasma 19(L) 22 - 29 mmol/L 06/26/2024 12:09 PM EDT [facility] Anion Gap 16 6 - 16 mmol/L 06/26/2024 12:09 PM EDT [facility] Total Calcium, Plasma 9.6 8.9 - 10.2 mg/dL 06/26/2024 12:09 PM EDT [facility] Total Protein 8.3(H) 6.3 - 7.9 g/dL 06/26/2024 12:09 PM EDT [facility] Albumin, Plasma 4.7 3.5 - 5.2 g/dL 06/26/2024 12:09 PM EDT [facility] AST, Plasma 18 10 - 35 U/L 06/26/2024 12:09 PM EDT [facility] ALT, Plasma 16 10 - 35 U/L 06/26/2024 12:09 PM EDT [facility] Alkaline Phosphatase, Plasma 106 46 - 142 U/L 06/26/2024 12:09 PM EDT [facility] Total Bilirubin, Plasma 0.4 0.2 - 1.1 mg/dL 06/26/2024 12:09 PM EDT [facility] eGFRcr 49.9 mL/min/1.7 3m*2 06/26/2024 12:09 PM EDT [facility] Comment:Reported eGFRcr in m L/min/1.73m2 is based the CKD-EPI 2020 equation that does not use a race coefficient. Blood Venous blood specimen / Unknown Venipuncture / Unknown 06/26/2024 11:17 AM EDT 06/26/2024 11:35 AM EDT us May Gao MD LAB BLOOD ORDERABLES Final Result [facility] [address] [place] [address] * (ABNORMAL) CBC w/diff (06/26/2024 11:17 AM EDT) WBC Count 6.82 3.70 - 10.30 10*3/uL LAB HEMATOLOGY METHOD 06/26/2024 11:37 AM EDT [facility] RBC Count 4.52 3.90 - 5.20 10*6/uL LAB HEMATOLOGY METHOD 06/26/2024 11:37 AM EDT [facility] HGB 14.5 11.2 - 15.7 g/dL LAB HEMATOLOGY METHOD 06/26/2024 11:37 AM EDT [facility] HCT 40.6 34.0 - 45.0 % LAB HEMATOLOGY METHOD 06/26/2024 11:37 AM EDT [facility] Platelet Count 341 155 - 369 10*3/uL LAB HEMATOLOGY METHOD 06/26/2024 11:37 AM EDT [facility] MCV 90 79 - 98 fL LAB HEMATOLOGY METHOD 06/26/2024 11:37 AM EDT [facility] MCH 32.1(H) 26.0 - 32.0 pg LAB HEMATOLOGY METHOD 06/26/2024 11:37 AM EDT [facility] MCHC 35.7(H) 30.7 - 35.5 g/dL LAB HEMATOLOGY METHOD 06/26/2024 11:37 AM EDT [facility] RDW 12.7 11.5 - 14.5 % LAB HEMATOLOGY METHOD 06/26/2024 11:37 AM EDT [facility] MPV 8.4(L) 8.8 - 12.5 fL LAB HEMATOLOGY METHOD 06/26/2024 11:37 AM EDT [facility] nRBC 0.0 <=0.0 per 100 WBCs LAB HEMATOLOGY METHOD 06/26/2024 11:37 AM EDT [facility] Differential Type Automated LAB HEMATOLOGY METHOD 06/26/2024 11:37 AM EDT [facility] Neutrophils % 60 % LAB HEMATOLOGY METHOD 06/26/2024 11:37 AM EDT [facility] Lymphocytes % 28 % LAB HEMATOLOGY METHOD 06/26/2024 11:37 AM EDT [facility] Monocytes % 7 % LAB HEMATOLOGY METHOD 06/26/2024 11:37 AM EDT [facility] Eosinophils % 3 % LAB HEMATOLOGY METHOD 06/26/2024 11:37 AM EDT [facility] Basophils % 1 % LAB HEMATOLOGY METHOD 06/26/2024 11:37 AM EDT [facility] Immature Granulocytes % 1 % LAB HEMATOLOGY METHOD 06/26/2024 11:37 AM EDT [facility] Neutrophils Absolute 4.13 1.60 - 6.10 10*3/uL LAB HEMATOLOGY METHOD 06/26/2024 11:37 AM EDT [facility] Lymphocytes Absolute 1.90 1.20 - 3.90 10*3/uL LAB HEMATOLOGY METHOD 06/26/2024 11:37 AM EDT [facility] Monocytes Absolute 0.48 0.30 - 0.90 10*3/uL LAB HEMATOLOGY METHOD 06/26/2024 11:37 AM EDT [facility] Eosinophils Absolute 0.19 0.00 - 0.50 10*3/uL LAB HEMATOLOGY METHOD 06/26/2024 11:37 AM EDT [facility] Basophils Absolute 0.05 0.00 - 0.10 10*3/uL LAB HEMATOLOGY METHOD 06/26/2024 11:37 AM EDT [facility] Immature Granulocytes Absolute 0.07(H) 0.00 - 0.06 10*3/uL LAB HEMATOLOGY METHOD 06/26/2024 11:37 AM EDT [facility] Blood Venous blood specimen / Unknown Venipuncture / Unknown 06/26/2024 11:17 AM EDT 06/26/2024 11:35 AM EDT [facility] - 06/26/2024 11:37 AM EDT Therapeutic decision making should be based on absolute values, rather than percentages. us May Gao MD LAB BLOOD ORDERABLES Final Result [facility] [address] [place] [address] * EKG now - STAT (adult) (06/26/2024 10:46 AM EDT) EKG DIAGNOSIS CLASS Abnormal MUSE ECG Ventricular Rate 84 BPM MUSE ECG Atrial Rate 84 BPM MUSE ECG WV Interval 198 ms MUSE ECG QRSD Interval 78 ms MUSE ECG QT Interval 452 ms MUSE ECG QTC Interval 534 ms MUSE ECG P [place] 52 degrees MUSE ECG R [place] 90 degrees MUSE ECG T Wave [place] 105 degrees MUSE ECG Diagnosis Poor data quality, interpretation may be adversely affected MUSE ECG Diagnosis Poor data quality MUSE ECG Diagnosis Normal sinus rhythm MUSE ECG Diagnosis Rightward axis MUSE ECG Diagnosis Cannot rule out Inferior infarct , age undetermined MUSE ECG Diagnosis Nonspecific T wave abnormality MUSE ECG Diagnosis Abnormal ECG MUSE ECG Diagnosis Recommend repeat ECG MUSE ECG Diagnosis Confirmed by Deshawn Patterson ([id number]) on 06/26/2024 11:01:05 AM MUSE ECG 06/26/2024 10:4 6 AM EDT 06/26/2024 11:01 AM EDT us Dimas Lau MD ECG ORDERABLES Final Result MUSE ECG documented in this encounter Visit Diagnoses Diagnosis SAH (subarachnoid hemorrhage) (CMS/HCC)- Primary Subarachnoid hemorrhage Syncope, unspecified syncope type Recurrent falls IVH (intraventricular hemorrhage) (CMS/HCC) Intracerebral hemorrhage Recurrent falls History of stroke Transient ischemic attack (TIA), and cerebral infarction without residual deficits Multilevel degenerative disc disease Closed traumatic nondisplaced fracture of one rib of right side Syncope Syncope and collapse documented in this encounter Admitting Diagnoses Diagnosis SAH (subarachnoid hemorrhage) (CMS/HCC) Subarachnoid hemorrhage documented in this encounter Administered Medications Inactive Administered Medications - up to 3 most recent administrations Medication Order MAR Action Action Date Dose Rate Site acetaminophen (Tylenol) tablet 1,000 mg 1,000 mg, Oral, Every 6 hours scheduled, First dose on Mon06/26/24 at 1800, Until Discontinued, Routine Given 06/26/2024 11:19 PM EDT 1,000 mg Given 06/26/2024 6:44 PM EDT 1,000 mg acetaminophen (Tylenol) tablet 650 mg 650 mg, Oral, Every 6 hours scheduled, First dose (after last modification) on Mon06/27/24 at 0600, Until Discontinued, Routine Given 06/27/2024 12:16 PM EDT 650 mg Given 06/27/2024 6:11 AM EDT 650 mg albuterol 108 (90 Base) MCG/ACT inhaler 2 puff 2 puff, Inhalation, Every 6 hours PRN, Starting on Mon06/26/24 at 2044, Until Mon06/27/24 at 1522, Routine, shortness of breath, wheezing amLODIPine (Norvasc) tablet 5 mg 5 mg, Oral, Daily, First dose on Mon06/27/24 at 1045, Until Discontinued, Routine Given 06/27/2024 10:01 AM EDT 5 mg ugwyyoazfd-edkbcoysampes-sraizdhp 50-325-40 MG per tablet 1 tablet 1 tablet, Oral, Every 4 hours PRN, Starting on Mon06/27/24 at 0334, Until Mon06/27/24 at 1522, Routine, headaches Given 06/27/2024 3:39 AM EDT 1 tablet carvedilol (Coreg) tablet 6.25 mg 6.25 mg, Oral, 2 times daily, First dose on Mon06/27/24 at 1045, Until Discontinued, Routine Given 06/27/2024 10:01 AM EDT 6.25 mg polyethylene glycol (Miralax) packet 17 g 17 g, Oral, Daily, First dose (after last modification) on Mon06/27/24 at 0900, Until Discontinued, Routine senna-docusate (Arlet-Colace) 8.6-50 MG per tablet 1 tablet 1 tablet, Oral, Daily, First dose (after last modification) on Mon06/27/24 at 0900, Until Discontinued, Routine sodium chloride 0.9 % flush 10 mL 10 mL, Intravenous, Every 12 hours, First dose on Mon06/26/24 at 1650, Until Discontinued, Routine Given 06/27/2024 4:34 AM EDT 10 mL Given 06/26/2024 6:44 PM EDT 10 mL sodium chloride 0.9 % flush 10 mL 10 mL, Intravenous, As needed, Starting on Mon06/26/24 at 1643, Until Mon06/27/24 at 1522, Routine, line care documented in this encounter Active and Recently Administered Medications Times are shown in EDT. Scheduled Medication Order 06/25/2024 06/26/2024 06/27/2024 acetaminophen (Tylenol) tablet 1,000 mg (CANCELED) 1,000 mg, Oral, Every 6 hours scheduled, First dose on Mon06/26/24 at 1800, Until Discontinued, Routine 1844 (Given - Provider: Jose Raul Loyd RN)2319 (Given - Provider: Esthela Osei, FARRAH) acetaminophen (Tylenol) tablet 650 mg 650 mg, Oral, Every 6 hours scheduled, First dose (after last modification) on Nasreen 06/27/24 at 0600, Until Discontinued, Routine 0611 (Given - Provid er: Esthela Osei RN)1216 (Given - Provider: Lety Lopez RN) amLODIPine (Norvasc) tablet 5 mg 5 mg, Oral, Daily, First dose on Nasreen 06/27/24 at 1045, Until Discontinued, Routine 1001 (Given - Provid er: Lety Lopez RN) carvedilol (Coreg) tablet 6.25 mg 6.25 mg, Oral, 2 times daily, First dose on Nasreen 06/27/24 at 1045, Until Discontinued, Routine 1001 (Given - Provid er: Lety Lopez RN) polyethylene glycol (Miralax) packet 17 g 17 g, Oral, Daily, First dose (after last modification) on Mon06/27/24 at 0900, Until Discontinued, Routine 0908 (Not Given - Provider: Lety Lopez RN - Reason: Patient/family refused) senna-docusate (Arlet-Colace) 8.6-50 MG per tablet 1 tablet 1 tablet, Oral, Daily, First dose (after last modification) on Nasreen 06/27/24 at 0900, Until Discontinued, Routine 0908 (Not Given - Provider: Lety Lopez RN - Reason: Patient/family refused) sodium chloride 0.9 % flush 10 mL(Linked Group 1) 10 mL, Intravenous, Every 12 hours, First dose on Mon06/26/24 at 1650, Until Discontinued, Routine 1844 (Given - Provider: Jose Raul Lody RN) 0434 (Given - Provider: Esthela Osei, FARRAH) PRN Medication Order 06/25/2024 06/26/2024 06/27/2024 albuterol 108 (90 Base) MCG/ACT inhaler 2 puff 2 puff, Inhalation, Every 6 hours PRN, Starting on Mon06/26/24 at 2044, Until Nasreen 06/27/24 at 1522, Routine, shortness of breath, wheezing lozdttkaef-ofkibahxlwews-nghwmmi e 50-325-40 MG per tablet 1 tablet 1 tablet, Oral, Every 4 hours PRN, Starting on Mon06/27/24 at 0334, Until Nasreen 06/27/24 at 1522, Routine, headaches 0339 (Given - Provid er: Esthela Osei RN) sodium chloride 0.9 % flush 10 mL(Linked Group 1) 10 mL, Intravenous, As needed, Starting on Mon06/26/24 at 1643, Until Nasreen 06/27/24 at 1522, Routine, line care Linked Groups Order Group 1: Insert peripheral IV (CANCELED) Once, On Mon06/26/24 at 1644, For 1 occurrence And Saline lock IV (CANCELED) Once, On Mon06/26/24 at 1644, For 1 occurrence And sodium chloride 0.9 % flush 10 mLJump to med 10 mL, Intravenous, Every 12 hours, First dose on Mon06/26/24 at 1650, Until Discontinued, Routine And sodium chloride 0.9 % flush 10 mLJump to med 10 mL, Intravenous, As needed, Starting on Mon06/26/24 at 1643, Until Nasreen 06/27/24 at 1522, Routine, line care documented in this encounter Additional Health Concerns Assessment Noted Time A Body Mass Index follow-up plan has been documented for the patient 06/27/2024 12:05 PM EDT documented as of this encounter Care Teams Preventive Maintenance Engineer Relationship Specialty Start Date End Date Pcp, Mara [address] [place] [address] PCP - General Family Medicine 12/30/23 06/27/24 documented as of this encounter
--- OUTSIDE RECORDS SUMMARY | 2024-06-28 13:02 | XMS_ITS | Encounter Summary ---
Author Organization Healthcare Address [address] [place] [address] Care Team Providers Care [employer] Name Role Phone Miley Verma MD Primary Care Provider [phone] Reason for Visit * Reason Comments Hallucinations Encounter Details Date Type Department Care Team (Late st Contact Info) Description 06/28/2024 1:02 PM EDT - 06/28/2024 6:32 PM EDT Emergency [facility] [address] [place] [address] Brian Blevins MD [address] [place] [address] Dakota Gayle MD [address] [place] [address] Hallucinations (Primary Dx) Discharge Disposition: Home or Self Care Social History Tobacco Use Types Packs/Day Years Used Date Smoking Tobacco: Never Smokeless Tobacco: Never Alcohol Use Standard Drinks/Week Comments Never 0 [...] Sign Reading Time Taken Comments Blood Pressure 131/74 06/28/2024 4:53 PM EDT Pulse 70 06/28/2024 4:53 PM EDT Temperature 36.4 C (97.5 F) 06/28/2024 4:53 PM EDT Respiratory Rate 17 06/28/2024 4:53 PM EDT Oxygen Saturation 99% 06/28/2024 4:53 PM EDT Inhaled Oxygen Concentration - - Weight 69.8 kg (153 lb 14.1 oz) 06/28/2024 1:19 PM EDT Height 157.5 cm (5' 2 ) 06/28/2024 1:23 PM EDT Body Mass Index 28.15 06/28/2024 1:19 PM EDT documented in this encounter Functional Status * Calculated C-SSRS Risk Score (Lifetime/Recent) Answer Date of Assessment Author No Risk Indicated 06/28/2024 1:20 PM EDT Susan Solis RN * Question Answer Date of Assessment Author 1. Wish to be (Past 1 Month) No 025 1:20 PM EDT Susan Solis, FARRAH 2. Non-Specific Active Suici yeyo Thoughts (Past 1 Month) No 06/28/2024 1:20 PM EDT Susan Solis RN 6. Suicidal Behavior (Lifetime) No 1:20 PM EDT Susan Solis RN documented as of this encounter Discharge Instructions * Discharge Instructions* Lupillo Solomon MD - 06/28/2024 6:17 PM EDT Follow up with your primary care physician as soon as possible, especially if symptoms continue. Avoid taking the Fioricet as this may be contributing to your hallucinations. If you develop any new or worsening symptoms, or if you become concerned for your health for any reason, return to the emergency department for evaluation documented in this encounter Medications at Time of Discharge acetaminophen (Tylenol) 325 MG tablet Take 2 tablets by mouth every 6 hours. Under [place] law, monthly prescriptions (30 days) can be [...] up to 10 days. 60 tablet 06/27/2024 senna-docusate (Arlet-Colace) 8.6-50 MG tablet Take 1 tablet by mouth daily for 14 days. 14 tablet 06/28/2024 documented as of this encounter Miscellaneous Notes * Significant Event - Grace Bee DO - 06/28/2024 6:32 PM EDT Trauma Surgery was consulted to evaluate this patient in the emergency department given her recent admission for R 6th rib fx, IVH, and SAH. Patient was discharged 06/27 with Fioricet. She returned to the ED today 06/28 complaining of visual hallucinations. Patient was evaluated. She is AXOX4, GCS 15. She states she feels otherwise well except that she had hallucinations of her uadwqm-uh-rha (who haspreviously ) and puppies in her house. She states also saw people walking around her house thatshe didn't recognize. She otherwise has no complaints. (-) SI/HI. She lives at home with her daughter and has had no new trauma/falls. Her repeat CT head today was unremarkable for acute abnormalities. Patient feels safe at home and is able to complete all ADLs at home. No neurologic deficits on exam. Given repeat imaging is reassuring and no neurologic deficits, patient does not require admission at this time. I advised patient to discontinue Fioricet. Discussed return to the emergency department if any new or worsening symptoms. Advised close follow up with her PCP. Advised tylenol for pain control as needed. I discussed this with my attending, Dr. Miller, who is in agreement. Grace Bee DO, MHEd Emergency Medicine PGY-2 * Progress Notes - Julieta Darnell - 06/28/2024 6:32 PM EDT Case Management Note Patient Identification: Abby Lopez 73 y.o. female [facility]: [id number] Admission: 06/28/2024 1:02 PM Primary Problem: No Principal Problem: There is no principal problem currently on the Problem List.Please update the Problem List and refresh. ED SW responded to a request to assist pt with discharge transportation. It was determined pt met 300% Federal Poverty Guidelines. FPG form completed and faxed to medical records. ED SW arranged d/c transport via [employer]. Address verified as [address] [place] [id number]. Ride requested. Details relayed to RN/team. Pt picked-up and taken to address. No further needs identified. Julieta Darnell REPAIRER HELPER, MODELING INSTRUCTOR [facility] Academic Support Center Director Senior Case Management ED Social Work Case Management Pager evenings/weekends Case Management Main Office Mon-Fri * Progress Notes - Jose Evans RN - 06/28/2024 2:02 PM EDT Abby Lopez Chief Complaint Patient presents with Hallucinations Geriatric Screening Geriatric TRST alert for a pt score of 4 on the questionnaire. RNCM spoke with patient at bedside to discuss safety measures. Patient is pending clinical course for treatment. Pt uses a RW, rollator,canes, and shower chair at home. She lives with her daughter and is MIN assist with daily living. She reports that she can cook but not everyday. She reports that she has had 2 falls in the last three months but uncertain why she has fallen. Denies any HH or PT/OT services Geriatric Triage Risk Screening Tool (TRST) Cognitive impairment: No Five or more medications: Yes Difficulty walking/ transferring, or recent falls: Yes ED use in the last 30 days or hospitalization in previous 90 days: Yes Lives alone and/ or no caregiver: No ED staff concerns: Yes TRST Identified Risk Factors: Sensory deficits; Medication issues TRST Assessment Total: 4 Discussed fall safety measures for the home such as removing throw rugs, padding corners of vieyra/furniture, grab bars, etc. Discussed importance of regular PCP care and if they have an upcoming appts with PCP, access to prescription concerns, in-home care and medical transportation. Case management will continue to follow as needed and able to offer additional resources at request. Celeste Evans ED-media/instructional designer * ED Provider Notes - Beverly Rinaldi MD - 06/28/2024 12:57 PM EDT - HPI Chief Complaint Patient presents with Hallucinations 73 year old female with history of CVA, HTN, migraine, BPD, recent admission for traumatic SAH, IVHpresenting for evaluation of hallucinations. She reports onset of hallucinations involving puppies,her sister in law started today. She denies these issues while inpatient. She is not sure what medications she takes. She was discharged on fioricet yesterday. She does have BPD but does not think she currently takes meds for it has not had issues in a long time Patient History Medical History[1] Surgical History[2] Family History[3] Social History[4] Allergies: Allergies[5] Physical Exam ED Triage Vitals [06/28/24 1314] Temp Heart Rate Resp BP 36.3 ??C (97.4 ??F) 73 12 86/54 SpO2 Temp Source Heart Rate Source Patient Position 98 % Oral -- Lying BP Location FiO2 (%) Right arm -- Physical Exam Constitutional: General: She is not in acute distress. Appearance: Normal appearance. HENT: Head: Normocephalic. Eyes: Conjunctiva/sclera: Conjunctivae normal. Pupils: Pupils are equal, round, and reactive to light. Cardiovascular: Rate and Rhythm: Normal rate. Pulmonary: Effort: Pulmonary effort is normal. Abdominal: General: Abdomen is flat. There is no distension. Palpations: Abdomen is soft. Tenderness: There is no abdominal tenderness. Skin: General: Skin is warm. Neurological: Mental Status: She is alert and oriented to person, place, and time. Cranial Nerves: No cranial nerve deficit. Sensory: No sensory deficit. Motor: No weakness. EASI ?? Total Score: 0 Argyle Coma Scale Score: 15 TRST Assessment Total: 4 ED Course & MDM - Assessment: 73 y.o. female presents to ED with complaint of hallucinations. It should be noted that the chronicconditions includes SAH, IVH, which currently is at goal therapy. This complicates the clinical picture because it Comorbidities: may be exacerbating symptoms. She is in no distress but does have hypotension on arrival which quickly improved with IVF. Differential Diagnosis: intracranial hemorrhage, psychosis, hospital acquired delirium, medication effect, medication withdrawal among others In order to fully explore the differential diagnosis the following treatments and tests were ordered: ED Medication Administration from 06/28/2024 1257 to 06/28/2024 1416 Date/Time Order Dose Route Action 06/28/2024 1330 EDT lactated Ringer's infusion 1,000 mL 1,000 mL Intravenous New Bag All Other Orders Ordered Status Ordering Provider 06/28/24 1348 Drug abuse screen STAT Acknowledged BEVERLY RINALDI Abhilash 06/28/[address] Head wo IV Contrast Once Acknowledged BEVERLY RINALDI 06/28/24 1327 TSH STAT In process NIMCOADEBAYOBEVERLY L 06/28/24 1327 T4, free STAT In process NIMCOADEBAYO MASITH L 06/28/24 1321 POCT glucose meter PROCEDURE ONCE Final result POCT, GENERIC PROVIDER 06/28/[address] Chest wo IV Contrast Once Acknowledged BEVERLY RINALDI L 06/28/24 1327 CBC w/diff STAT Final result BEVERLY RINALDI 06/28/24 1327 CMP STAT In process NIMCOADEBAYOBEVERLY L 06/28/24 1327 Urinalysis with reflex microscopic AND reflex culture (IF UTI SUSPECTED) STAT Acknowledged ADEBAYO RINALDIITH L 06/28/24 1328 Urinalysis with reflex microscopic (Culture NOT Included) PROCEDURE ONCE Ordered BEVERLY RINALDI L 06/28/24 1328 Urine Jules Panel PROCEDURE ONCE Ordered BEVERLY RINALDI L 06/28/24 1318 EKG now - STAT (adult) Once Preliminary result BRIAN BELVINS ED Course as of 06/29/24 0701 MonJune 28, 2024 1317 Trauma dc summary from yesterday reviewed- Laxmi Lopez is 73 y/o female with pmhx of syncope,DDD (pain pump) CVA on plavix who presented [...] fx. Abdomen soft, non tender. Last BM user acceptance tester. Voiding spontaneously. Resumed home antihypertensives. Patient denies [...] so will be discharged to A; RW [JM] 1432 Glucose(!): 209 [JM] 1432 Creatinine(!): 1.36 [JM] 1432 TSH(!): 9.88 [JM] 1432 Free T4: 1.3 [JM] 1432 POCT Glucose(!): 200 [JM] 1432 WBC: 6.56 [JM] 1432 RBC: 3.96 [JM] 1432 She was handed off to oncoming resident pending CT imaging, completion of labwork. [JM] 1548 CT Head wo IV Contrast IMPRESSION: 1.No acute intracranial abnormality. 2.Senescent changes, as described. [JK] 1629 CT Chest wo IV Contrast IMPRESSION: Redemonstrated nondisplaced fractures of the right second, sixth anterior and left third rib. Unchanged right upper lobe pulmonary nodule. Scattered linear atelectasis perhaps secondary to poor inspiratory effort. [JK] 1822 Trauma team evaluated the patient and the patient is back to her baseline in his alert and oriented. No indication for admission at this time. On reassessment, patient states that she has not had any hallucinations while here in the emergency department in his here with her daughter who lives with her. The patient is comfortable going home at this time. Return precautions were given. She wasencouraged to follow up with her primary care physician and to avoid taking Fioricet in the future as this may be contributing to her symptoms. All questions were answered. She demonstrated understanding and was in agreement with this plan. She was then discharged from the emergency department in stable condition [JK] ED Course User Index [JK] Lupillo Solomon MD [JM] Beverly Rinaldi MD Clinical Impressions as of 06/29/24 0701 Hallucinations Social Determinates of Health Risks (including Economic Stability, Education and level of understanding, Healthcare access and quality and concerning social factors): None identified on this visit Ultimately, this [facility] was [facility] Prescriptions None - [1] Past Medical History: Diagnosis Date Chronic [...] calculi History of renal calculi Riley's paralysis (CMS/HCC) [2] Past Surgical History: Procedure Laterality Date [...] Never [5] Allergies Allergen Reactions Lisinopril Itching Beverly Rinaldi MD Resident 06/29/24713 Cosigned by Brian Blevins MD at 07/01/2024 3:25 PM EDT Associated attestation - Brian Blevins MD - 07/01/2024 3:25 PM EDT I saw and evaluated the patient with the resident/fellow. I discussed the case with the resident/fellow and agree with the findings and plan as documented. * ED Triage Notes - Kimberly Armstrong RN - 06/28/2024 12:57 PM EDT Patient seen here on 06/26 for multiple falls and was found to have a head bleed and some rib fractures. Patient was discharged yesterday. This am patient began to have some hallucinations. She was seeing puppies playing in her bedroom and her [id number]. * Progress Notes - Lupillo Solomon MD - 06/28/2024 12:57 PM EDT Images from the original note were not included. ED TRANSFER OF CARE NOTE Transferring provider: Nimco Transferring attending: Gen MITESH Time: 1401 I received sign-out and accepted care of this patient from the previous ED providers caring for this patient. I reviewed the patient's history, exam, work- up, and treatment plan up to this point. Please see the primary ED Provider Note for complete elements of the history, physical exam, and ED course. PERTINENT HISTORY: In brief, Abby Lopez is a 73 y.o. female with relevant PMH bipolar disorderwho presented to the ED for evaluation of fall, SAH and IVH. Having hallucinations now 2 days afterdischarge from the trauma surgery service. Discharged with Fioricet. PENDING: I accepted care of this patient from the previous provider pending CT imaging, discuss with trauma surgery again. Seems less psych related. ED Medication Administration from 06/28/2024 1257 to 06/28/2024 1824 Date/Time Order Dose Route Action 06/28/2024 1330 EDT lactated Ringer's infusion 1,000 mL 1,000 mL Intravenous New Bag ED COURSE: ED Course as of 06/28/241823June 28, 2024 1317 Trauma dc summary from yesterday reviewed- Laxmi Lopez is 73 y/o female with pmhx of syncope,DDD (pain pump) CVA on plavix who presented [...] fx. Abdomen soft, non tender. Last BM user acceptance tester. Voiding spontaneously. Resumed home antihypertensives. Patient denies [...] so will be discharged to A; RW [JM] 1432 Glucose(!): 209 [JM] 1432 Creatinine(!): 1.36 [JM] 1432 TSH(!): 9.88 [JM] 1432 Free T4: 1.3 [JM] 1432 POCT Glucose(!): 200 [JM] 1432 WBC: 6.56 [JM] 1432 RBC: 3.96 [JM] 1432 She was handed off to oncoming resident pending CT imaging, completion of labwork. [JM] 1548 CT Head wo IV Contrast IMPRESSION: 1.No acute intracranial abnormality. 2.Senescent changes, as described. [JK] 1629 CT Chest wo IV Contrast IMPRESSION: Redemonstrated nondisplaced fractures of the right second, sixth anterior and left third rib. Unchanged right upper lobe pulmonary nodule. Scattered linear atelectasis perhaps secondary to poor inspiratory effort. [JK] 1822 Trauma team evaluated the patient and the patient is back to her baseline in his alert and oriented. No indication for admission at this time. On reassessment, patient states that she has not had any hallucinations while here in the emergency department in his here with her daughter who lives with her. The patient is comfortable going home at this time. Return precautions were given. She wasencouraged to follow up with her primary care physician and to avoid taking Fioricet in the future as this may be contributing to her symptoms. All questions were answered. She demonstrated understanding and was in agreement with this plan. She was then discharged from the emergency department in stable condition [JK] ED Course User Index [JK] Lupillo Solomon MD [JM] Beverly Rinaldi MD Clinical Impressions as of 06/28/24 182 Hallucinations Ultimately, this patient Was discharged Home (Discharge) The encounter diagnosis was Hallucinations. . Patient was counseled on the diagnoses. Discharge medications if any are listed below. Listed medications are thought be either curative for listed diagnoses or will help control ongoing symptoms. Patient is requested to follow up with Patient's Primary Care Provider in order to obtain routine follow-up. Instructions on follow up as well as precautions to return to the ER provided verbally by the EM provider, as well as written in patients discharge education packet. ED Prescriptions None Discharge Instructions Follow up with your primary care physician as soon as possible, especially if symptoms continue. Avoid taking the Fioricet as this may be contributing to your hallucinations. If you develop any new or worsening symptoms, or if you become concerned for your health for any reason, return to the emergency department for evaluation Disposition Discharge AVS (Thai Snapshot) - Printed 06/28/2024 Follow-Ups: Follow up with Miley Verma MD - Lupillo Solomon MD Cosigned by Dakota Gayle MD at 07/02/2024 12:04 PM EDT Associated attestation - Dakota Gayle MD - 07/02/2024 12:04 PM EDT Seen by resident only. documented in this encounter Plan of Treatment Upcoming Encounters Date Type Department Care Team (Late st Contact Info) Description 08/22/2024 8:30 AM EDT Appointment [facility] CT [address] [place] [address] 08/22/2024 9:40 AM EDT Office Visit [facility] [address] [place] [address] Sonia Up PA [address] [place] [address] 10/18/2024 8:15 AM EDT Office Visit [facility] Zeigler [facility]am [address] [place] [address] Carlitos Cowart, DO [address] [place] [address] documented as of this encounter Procedures Procedure Name Priority Date/Time Associated Diagnosis Comments SEND MARYELLEN MESSAGE STAT 06/28/2024 2: 36 PM EDT URINALYSIS WITH REFLEX MICROSCOPIC AND CULTURE STAT 06/28/2024 2:36 PM EDT URINE JULES PANEL STAT 06/28/2024 2:36 PM EDT URINALYSIS MICROSCOPIC FOR UA REFLEX STAT 06/28/2024 2:36 PM EDT BARBITURATES URINE STAT 06/28/2024 2: 36 PM EDT OPIATES, LCMSMS, URINE STAT 2:36 PM EDT DRUG ABUSE SCREEN, URINE STAT 06/28/2024 2:36 PM EDT URINALYSIS WITH REFLEX MICROSCOPIC STAT 06/28/2024 2:36 PM EDT URINE CULTURE STAT 06/28/2024 2:[address] CHEST WO IV CONTRAST STAT 06/28/2024 2:[address] HEAD WO IV CONTRAST STAT 2:26 PM EDT CBC WITH AUTO DIFFERENTIAL STAT 06/28/2024 1:31 PM EDT TSH STAT 06/28/2024 1:31 PM EDT FREE T4, PLASMA STAT 06/28/2024 1:31 PM EDT COMPREHENSIVE METABOLIC PANEL, PLASMA STAT 06/28/2024 1:31 PM EDT ECG ADULT STAT 06/28/2024 1:23 PM EDT POCT GLUCOSE METER UNSOLICITED RESULTS Routine 06/28/2024 1:21 PM EDT documented in this encounter Results * (ABNORMAL) Opiates Confirm Urine (06/28/2024 2:36 PM EDT) Codeine <50 <50 ng/mL 07/02/2024 1:37 PM EDT [facility] Codeine Glucuronide <50 <50 ng/mL 07/02/2024 1:37 PM EDT [facility] Desmethyl Tramadol <50 <50 ng/mL 07/02/2024 1:37 PM EDT [facility] EDDP - Methadone Metabolite <50 <50 ng/mL 07/02/2024 1:37 PM EDT [facility] Hydrocodone <50 <50 ng/mL 07/02/2024 1:37 PM EDT [facility] Hydromorphone <50 <50 ng/mL 07/02/2024 1:37 PM EDT [facility] Hydromorphone Glucuronide <50 <50 ng/mL 07/02/2024 1:37 PM EDT [facility] Comment:Metabolite of Hydrom orphone Meperidine <50 <50 ng/mL 07/02/2024 1:37 PM EDT [facility] Methadone <50 <50 ng/mL 07/02/2024 1:37 PM EDT [facility] 6 Monoacetyl morphine <10 <10 ng/mL 07/02/2024 1:37 PM EDT [facility] Morphine 69(H) <50 ng/mL 07/02/2024 1:37 PM EDT [facility] Morphine Glucuronide >1,000(H) <50 ng/mL 07/02/2024 1:37 PM EDT [facility] Comment:Metabolite of Morphi ne Naloxone <50 <50 ng/mL 07/02/2024 1:37 PM EDT [facility] Naloxone Glucuronide <50 <50 ng/mL 07/02/2024 1:37 PM EDT [facility] Comment:Metabolite of Naloxo ne Normeperidine <50 <50 ng/mL 07/02/2024 1:37 PM EDT [facility] Tramadol <50 <50 ng/mL 07/02/2024 1:37 PM EDT [facility] Urine Urine specimen obtained by clean catch procedure / Unknown Non-blood Collection / Unknown 06/28/2024 2:36 PM EDT 06/28/2024 2:39 PM EDT Narrative [facility] - 07/02/2024 1:37 PM EDT Drug analysis is confirmed by LC-MS/MS (LC Tandem Mass Spectrometry) on Urine specimens. This test was developed and its performance characteristics determined by [facility]. It has not been cleared or approved by the FDA. The laboratory is regulated under CLIA as qualified to perform high-complexity testing. This test is used for clinical purposes. Testing is performed at the [facility]. us Brian Blevins MD LAB URINE ORDERABLES Final Resul t [facility] [address] [place] [address] * (ABNORMAL) Barbiturates Confirm Urine LCMSMS (06/28/2024 2:36 PM EDT) Butalbital 438(H) <50 ng/mL 07/02/2024 1:37 PM EDT [facility] Phenobarbital 67(H) <50 ng/mL 07/02/2024 1:37 PM EDT [facility] Secobarbital <50 <50 ng/mL 07/02/2024 1:37 PM EDT [facility] Urine Urine specimen obtained by clean catch procedure / Unknown Non-blood Collection / Unknown 06/28/2024 2:36 PM EDT 06/28/2024 2:39 PM EDT Narrative [facility] - 07/02/2024 1:37 PM EDT Drug analysis is confirmed by LC-MS/MS (LC Tandem Mass Spectrometry) on Urine specimens. This test was developed and its performance characteristics determined by [facility]. It has not been cleared or approved by the FDA. The laboratory is regulated under CLIA as qualified to perform high-complexity testing. This test is used for clinical purposes. Testing is performed at the [facility]. us Brian Blevins MD LAB URINE ORDERABLES Final Resul t Performing Organization Address [facility] [place] [address] * SEND MARYELLEN MESSAGE (06/28/2024 2:36 PM EDT) Urine Urine specimen obtained by clean catch procedure / Unknown Non-blood Collection / Unknown 06/28/2024 2:36 PM EDT 06/28/2024 2:46 PM EDT us Brian Blevins MD LAB URINE ORDERABLES Final Resul t Performing Organization Address [facility] Co de Phone Number [facility] [address] [place] [address] * Urine Culture (06/28/2024 2:36 PM EDT) Culture <10,000 CFU/mL Mixed urogenital, fecal, or skin ziyad present. 06/30/2024 6:07 AM EDT [facility] Urine Urine specimen obtained by clean catch procedure / Unknown Non-blood Collection / Unknown 06/28/2024 2:36 PM EDT 06/28/2024 2:46 PM EDT Brian Blevins MD LAB MICROBIOLOGY - GENERAL ORDER [place] Final Result Performing Organization Address [facility] de Phone Number [facility] [address] [place] [address] * Urinalysis Microscopic Examination (06/28/2024 2:36 PM EDT) Urine Urine specimen obtained by clean catch procedure / Unknown Non-blood Collection / Unknown 06/28/2024 2:36 PM EDT 06/28/2024 2:39 PM EDT Brian Blevins MD LAB URINE ORDERABLES Final Resul t Performing Organization Address [facility] Phone Number [facility] [address] [place] [address] * Drug abuse screen (06/28/2024 2:36 PM EDT) Amphetamine Screen Urine Negative Cutoff: 500 ng/mL 06/28/2024 4:21 PM EDT [facility] Benzodiazepines Screen Urine Negative Cutoff: 200 ng/mL 06/28/2024 4:21 PM EDT [facility] Cannabinoid Screen Urine Negative Cutoff: 50 ng/mL 06/28/2024 4:21 PM EDT [facility] Cocaine Screen Urine Negative Cutoff: 300 ng/mL 06/28/2024 4:21 PM EDT [facility] Barbiturate Screen Urine Presumptive positive. Confirmation by LC-MS/MS to follow. Cutoff: 200 ng/mL 06/28/2024 4:21 PM EDT [facility] Opiate Screen Urine Presumptive positive. Confirmation by LC-MS/MS to follow. Cutoff: 300 ng/mL 06/28/2024 4:21 PM EDT [facility] Methadone Screen Urine Negative Cutoff: 300 ng/mL 06/28/2024 4:21 PM EDT [facility] Buprenorphine Screen Urine Negative Cutoff: 10 ng/mL 06/28/2024 4:21 PM EDT [facility] Fentanyl Screen Urine Negative Cutoff: 1 ng/mL 06/28/2024 4:21 PM EDT [facility] Oxycodone Screen Urine Negative Cutoff: 100 ng/mL 06/28/2024 4:21 PM EDT [facility] Urine Urine specimen obtained by clean catch procedure / Unknown Non-blood Collection / Unknown 06/28/2024 2:36 PM EDT 06/28/2024 2:39 PM EDT us Brian Blevins MD LAB URINE ORDERABLES Final Resul t Performing Organization Address [facility]/ZIP Co de Phone Number [facility] [address] [place] [address] * Urine Jules Panel (06/28/2024 2:36 PM EDT) Extra Sent for Culture 06/28/2024 4:02 PM EDT [facility] Urine Urine specimen obtained by clean catch procedure / Unknown Non-blood Collection / Unknown 06/28/2024 2:36 PM EDT 06/28/2024 2:46 PM EDT us Brian Blevins MD LAB URINE ORDERABLES Final Resul t Performing Organization Address [facility] Co ct Phone Number [facility] [address] [place] [address] * (ABNORMAL) Urinalysis with reflex microscopic (Culture NOT Included) (06/28/2024 2:36 PM EDT) Color, Urine Yellow LAB URINALYSIS - AUTOMATED METHOD 06/28/2024 3:36 PM EDT [facility] Clarity, Urine Cloudy LAB URINALYSIS - AUTOMATED METHOD 06/28/2024 3:36 PM EDT [facility] Spec [place], Urine 1.022 1.005 - 1.030 LAB URINALYSIS - AUTOMATED METHOD 06/28/2024 3:36 PM EDT [facility] pH, Urine 5.5 5.0 - 8.0 LAB URINALYSIS - AUTOMATED METHOD 06/28/2024 3:36 PM EDT [facility] Protein, Urine 100(A) Negative mg/dL LAB URINALYSIS - AUTOMATED METHOD 06/28/2024 3:36 PM EDT [facility] Glucose, Urine 500(A) Negative mg/dL LAB URINALYSIS - AUTOMATED METHOD 06/28/2024 3:36 PM EDT [facility] Ketones, Urine Negative Negative mg/dL LAB URINALYSIS - AUTOMATED METHOD 06/28/2024 3:36 PM EDT [facility] Blood, Urine Negative Negative LAB URINALYSIS - AUTOMATED METHOD 06/28/2024 3:36 PM EDT [facility] Bilirubin, Urine Negative Negative LAB URINALYSIS - AUTOMATED METHOD 06/28/2024 3:36 PM EDT [facility] Urobilinogen, Urine 0.2 0.2 to 1.0 mg/dL LAB URINALYSIS - AUTOMATED METHOD 06/28/2024 3:36 PM EDT [facility] Leukocytes, Urine Trace(A) Negative LAB URINALYSIS - AUTOMATED METHOD 06/28/2024 3:36 PM EDT [facility] Nitrite, Urine Negative Negative LAB URINALYSIS - AUTOMATED METHOD 06/28/2024 3:36 PM EDT [facility] RBC, Urine <1 0 to 3 /HPF LAB URINALYSIS - AUTOMATED METHOD 06/28/2024 3:36 PM EDT [facility] Comment:This result was prev iously suppressed from the chart. WBC, Urine 21 - 50(A) 0 to 5 /HPF LAB URINALYSIS - AUTOMATED METHOD 06/28/2024 3:36 PM EDT [facility] Comment:This result was prev iously suppressed from the chart. Squamous Epithelial Cells 11 - 20(A) 0 to 5 /HPF LAB URINALYSIS - AUTOMATED METHOD 06/28/2024 3:36 PM EDT [facility] Comment:This result was prev iously suppressed from the chart. Hyaline Casts 3 - 5 0 to 5 /LPF LAB URINALYSIS - AUTOMATED METHOD 06/28/2024 3:36 PM EDT [facility] Comment:This result was prev iously suppressed from the chart. Bacteria, Urine Present Negative LAB URINALYSIS - AUTOMATED METHOD 06/28/2024 3:36 PM EDT [facility] Comment:This result was prev iously suppressed from the chart. Urine Urine specimen obtained by clean catch procedure / Unknown Non-blood Collection / Unknown 06/28/2024 2:36 PM EDT 06/28/2024 2:39 PM EDT us Brian Blevins MD LAB URINE ORDERABLES Final Resul t [facility] [address] [place] [address] * CT Head wo IV Contrast (06/28/2024 2:26 PM EDT) Anatomical Region Laterality Modality Head Computed Tomogra phy Impressions 06/28/2024 2:55 PM EDT 1. No acute intracranial abnormality. 2. Senescent changes, as described. CRITICAL RESULT: No. COMMUNICATION: Per this written report. Drafted by Shira Cronin MD on 06/28/2024 2:46 PM Final report signed by Shira Cronin MD on 06/28/2024 2:55 PM Narrative 06/28/2024 2:55 PM EDT CLINICAL INDICATION: Altered mental status (AMS), hallucinations and recent bleed TECHNIQUE: Spiral axial CT images of the head were obtained without contrast administration. Total DLP (Dose-Length Product): 844.1 mGy.cm. Please note: The reported value represents the total of one or more individual components during the CT acquisition on this date and at this time, and as such, the same value may appear in more than one CT report depending on the interpreting/reporting physicians. COMPARISON: CT of the head dated June 26, 2024. FINDINGS: Diagnostic Quality: Adequate. The ventricles and sulci are enlarged consistent with brain parenchymal volume loss. There is decreased attenuation in left temporal lobe adjacent to the temporal horn of the left lateral ventricle similar to previous study. There is mild dilatation of the temporal horn and occipital horn of the left lateral ventricle possibly related to ex vacuo dilatation. There is no acute large cortical infarct, intracranial hemorrhage or large mass on this noncontrast study. There is a moderate amount of non-specific but likely ischemic white matter lesions. Soft Tissues: No significant soft tissue swelling is present. Skull: There are no calvarial destructive lesions or fractures. Sinuses and Mastoids: There is a small left maxillary sinus mucous retention cyst. The visualized portions of the paranasal sinuses are clear. The mastoid air cells are clear. Procedure Note Shria Cronin MD - 06/28/2024 CLINICAL INDICATION: Altered mental status (AMS), hallucinations and recent bleed TECHNIQUE: Spiral axial CT images of the head were obtained without contrastadministration. Total DLP (Dose-Length Product): 844.1 mGy.cm. Please note: The reportedvalue represents the total of one or more individual components during theCT acquisition on this date and at this time, and as such, the same valuemay appear in more than one CT report depending on theinterpreting/reporting physicians. COMPARISON: CT of the head dated June 26, 2024. FINDINGS: Diagnostic Quality: Adequate. The ventricles and sulci are enlarged consistent with brain parenchymalvolume loss. There is decreased attenuation in left temporal lobe adjacent to thetemporal horn of the left lateral ventricle similar to previous study.There is mild dilatation of the temporal horn and occipital horn of theleft lateral ventricle possibly related to ex vacuo dilatation. There is no acute large cortical infarct, intracranial hemorrhage or largemass on this noncontrast study. There is a moderate amount of non-specificbut likely ischemic white matter lesions. Soft Tissues: No significant soft tissue swelling is present. Skull: There are no calvarial destructive lesions or fractures. Sinuses and Mastoids: There is a small left maxillary sinus mucousretention cyst. The visualized portions of the paranasal sinuses areclear. The mastoid air cells are clear. IMPRESSION: 1.No acute intracranial abnormality. 2.Senescent changes, as described. CRITICAL RESULT: No. COMMUNICATION: Per this written report. Drafted by Shira Cronin MD on 06/28/2024 2:46 PM Final report signed by Shira Cronin MD on 06/28/2024 2:55 PM us Brian Blevins MD IMG CT PROCEDURES Final Result * CT Chest wo IV Contrast (06/28/2024 2:26 PM EDT) Anatomical Region Laterality Modality Chest Computed Tomogra phy Impressions 06/28/2024 4:08 PM EDT Redemonstrated nondisplaced fractures of the right second, sixth anterior and left third rib. Unchanged right upper lobe pulmonary nodule. Scattered linear atelectasis perhaps secondary to poor inspiratory effort. CRITICAL RESULT: No. COMMUNICATION: Per this written report. By electronically signing this report, I, the attending physician, attest that I have personally reviewed the images/data for the above examination(s) and agree with the final edited report. Drafted by Angel Ramirez MD on 06/28/2024 3:24 PM Final report signed by Tory Davidson MD on 06/28/2024 4:08 PM Narrative 06/28/2024 4:08 PM EDT CLINICAL INDICATION: rib fx, hypotension TECHNIQUE: Imaging of the chest was performed from thoracic inlet through upper abdomen, using spiral technique, without administration of IV contrast. Reformatted images in the coronal and sagittal planes were generated from the axial data set to facilitate diagnostic accuracy. Total DLP (Dose-Length Product): 1593.83 mGy.cm. Please note: The reported value represents the total of one or more individual components during the CT acquisition on this date and at this time, and as such, the same value may appear in more than one CT report depending on the interpreting/reporting physicians. COMPARISON: CT chest, 06/26/2024. FINDINGS: There is motion degradation which limits the evaluation. Chest: Lack of IV contrast limits evaluation of thoracic organs and vessels. Aorta/Vessels: Thoracic aorta is within normal limits given the lack of IV contrast. Pleural/Pericardial Space: No pneumothorax. No pleural effusions. No pericardial effusion. Lymph Nodes: No lymphadenopathy within the chest. Lungs: Unchanged 6 mm right upper lobe pulmonary nodule. Bilateral medial lower lobe centrilobular airspace opacities. Bilateral bronchial wall thickening. Central airways are patent. Scattered linear atelectasis. Mediastinum: Trivessel coronary artery calcifications. Similarly positioned pacer wires. Chest Wall: Left-sided pacemaker. No chest wall hematoma or contusion. Bones: Redemonstrated nondisplaced fractures of the right second, sixth anterior and left third rib ribs. Old healed fracture in the sternum. Hardware within the left humerus is similarly positioned. No new fractures are noted. Again noted are multilevel degenerative changes in the spine, including at T2-T3, and T12 vertebroplasty. Redemonstrated chronic superior endplate deformities of T3, T4. Upper Abdomen: Small hiatal hernia. Redemonstration of bilateral renal cortical thinning, and vascular calcifications. Procedure Note Tory Davidson MD - 06/28/2024 CLINICAL INDICATION: rib fx, hypotension TECHNIQUE: Imaging of the chest was performed from thoracic inlet through upperabdomen, using spiral technique, without administration of IV contrast.Reformatted images in the coronal and sagittal planes were generated fromthe axial data set to facilitate diagnostic accuracy. Total DLP (Dose-Length Product): 1593.83 mGy.cm. Please note: The reportedvalue represents the total of one or more individual components during theCT acquisition on this date and at this time, and as such, the same valuemay appear in more than one CT report depending on theinterpreting/reporting physicians. COMPARISON: CT chest, 06/26/2024. FINDINGS: There is motion degradation which limits the evaluation. Chest: Lack of IV contrast limits evaluation of thoracic organs and vessels. Aorta/Vessels: Thoracic aorta is within normal limits given the lack of IVcontrast. Pleural/Pericardial Space: No pneumothorax. No pleural effusions. Nopericardial effusion. Lymph Nodes: No lymphadenopathy within the chest. Lungs: Unchanged 6 mm right upper lobe pulmonary nodule. Bilateral mediallower lobe centrilobular airspace opacities. Bilateral bronchial wallthickening. Central airways are patent. Scattered linear atelectasis. Mediastinum: Trivessel coronary artery calcifications. Similarlypositioned pacer wires. Chest Wall: Left-sided pacemaker. No chest wall hematoma or contusion. Bones: Redemonstrated nondisplaced fractures of the right second, sixthanterior and left third rib ribs. Old healed fracture in the sternum.Hardware within the left humerus is similarly positioned. No new fracturesare noted. Again noted are multilevel degenerative changes in the spine,including at T2-T3, and T12 vertebroplasty. Redemonstrated chronicsuperior endplate deformities of T3, T4. Upper Abdomen: Small hiatal hernia. Redemonstration of bilateral renalcortical thinning, and vascular calcifications. IMPRESSION: Redemonstrated nondisplaced fractures of the right second, sixth anteriorand left third rib. Unchanged right upper lobe pulmonary nodule. Scattered linear atelectasis perhaps secondary to poor inspiratoryeffort. CRITICAL RESULT: No. COMMUNICATION: Per this written report. By electronically signing this report, I, the attending physician, attestthat I have personally reviewed the images/data for the aboveexamination(s) and agree with the final edited report. Drafted by Angel Ramirez MD on 06/28/2024 3:24 PM Final report signed by Tory Davidson MD on 06/28/2024 4:08 PM us Brian Blevins MD IMG CT PROCEDURES Final Result * T4, free (06/28/2024 1:31 PM EDT) Free T4, Plasma 1.3 0.8 - 1.7 ng/dL 06/28/2024 2:22 PM EDT [facility] Blood Venous blood specimen / Unknown Venipuncture / Unknown 06/28/2024 1:31 PM EDT 06/28/2024 1:50 PM EDT us Brian Blevins MD LAB BLOOD ORDERABLES Final Resul t Performing Organization Address City/[facility]/ZIP Co de Phone Number [facility] [address] [place] [address] * (ABNORMAL) TSH (06/28/2024 1:31 PM EDT) Thyroid Stimulating Hormone, Plasma 9.88(H) 0.40 - 4.20 uIU/mL 06/28/2024 2:22 PM EDT [facility] Blood Venous blood specimen / Unknown Venipuncture / Unknown 06/28/2024 1:31 PM EDT 06/28/2024 1:50 PM EDT us Brian Blevins MD LAB BLOOD ORDERABLES Final Resul t [facility] [address] [place] [address] * (ABNORMAL) CMP (06/28/2024 1:31 PM EDT) Glucose, Plasma 209(H) 74 - 99 mg/dL 06/28/2024 2:22 PM EDT [facility] BUN, Plasma 14 8 - 23 mg/dL 06/28/2024 2:22 PM EDT [facility] Creatinine, Plasma 1.36(H) 0.60 - 1.10 mg/dL 06/28/2024 2:22 PM EDT [facility] BUN/Creatinine Ratio 10 06/28/2024 2:22 PM EDT [facility] Sodium, Plasma 133(L) 136 - 145 mmol/L 06/28/2024 2:22 PM EDT [facility] Potassium, Plasma 3.4(L) 3.6 - 4.9 mmol/L 06/28/2024 2:22 PM EDT [facility] Chloride, Plasma 99 97 - 107 mmol/L 06/28/2024 2:22 PM EDT [facility] CO2, Plasma 20(L) 22 - 29 mmol/L 06/28/2024 2:22 PM EDT [facility] Anion Gap 14 6 - 16 mmol/L 06/28/2024 2:22 PM EDT [facility] Total Calcium, Plasma 8.7(L) 8.9 - 10.2 mg/dL 06/28/2024 2:22 PM EDT [facility] Total Protein 7.2 6.3 - 7.9 g/dL 06/28/2024 2:22 PM EDT [facility] Albumin, Plasma 4.0 3.5 - 5.2 g/dL 06/28/2024 2:22 PM EDT [facility] AST, Plasma 14 10 - 35 U/L 06/28/2024 2:22 PM EDT [facility] ALT, Plasma 14 10 - 35 U/L 06/28/2024 2:22 PM EDT [facility] Alkaline Phosphatase, Plasma 92 46 - 142 U/L 06/28/2024 2:22 PM EDT [facility] Total Bilirubin, Plasma 0.3 0.2 - 1.1 mg/dL 06/28/2024 2:22 PM EDT [facility] eGFRcr 41.2 mL/min/1.7 3m*2 06/28/2024 2:22 PM EDT [facility] Comment:Reported eGFRcr in m L/min/1.73m2 is based the CKD-EPI 2020 equation that does not use a race coefficient. Blood Venous blood specimen / Unknown Venipuncture / Unknown 06/28/2024 1:31 PM EDT 06/28/2024 1:50 PM EDT us Brian Blevins MD LAB BLOOD ORDERABLES Final Resul t [facility] [address] [place] [address] * (ABNORMAL) CBC w/diff (06/28/2024 1:31 PM EDT) WBC Count 6.56 3.70 - 10.30 10*3/uL LAB HEMATOLOGY METHOD 06/28/2024 1:53 PM EDT [facility] RBC Count 3.96 3.90 - 5.20 10*6/uL LAB HEMATOLOGY METHOD 06/28/2024 1:53 PM EDT [facility] HGB 12.6 11.2 - 15.7 g/dL LAB HEMATOLOGY METHOD 06/28/2024 1:53 PM EDT [facility] HCT 36.5 34.0 - 45.0 % LAB HEMATOLOGY METHOD 06/28/2024 1:53 PM EDT [facility] Platelet Count 311 155 - 369 10*3/uL LAB HEMATOLOGY METHOD 06/28/2024 1:53 PM EDT [facility] MCV 92 79 - 98 fL LAB HEMATOLOGY METHOD 06/28/2024 1:53 PM EDT [facility] MCH 31.8 26.0 - 32.0 pg LAB HEMATOLOGY METHOD 06/28/2024 1:53 PM EDT [facility] MCHC 34.5 30.7 - 35.5 g/dL LAB HEMATOLOGY METHOD 06/28/2024 1:53 PM EDT [facility] RDW 12.6 11.5 - 14.5 % LAB HEMATOLOGY METHOD 06/28/2024 1:53 PM EDT [facility] MPV 8.6(L) 8.8 - 12.5 fL LAB HEMATOLOGY METHOD 06/28/2024 1:53 PM EDT [facility] nRBC 0.0 <=0.0 per 100 WBCs LAB HEMATOLOGY METHOD 06/28/2024 1:53 PM EDT [facility] Differential Type Automated LAB HEMATOLOGY METHOD 06/28/2024 1:53 PM EDT [facility] Neutrophils % 57 % LAB HEMATOLOGY METHOD 06/28/2024 1:53 PM EDT [facility] Lymphocytes % 30 % LAB HEMATOLOGY METHOD 06/28/2024 1:53 PM EDT [facility] Monocytes % 8 % LAB HEMATOLOGY METHOD 06/28/2024 1:53 PM EDT [facility] Eosinophils % 4 % LAB HEMATOLOGY METHOD 06/28/2024 1:53 PM EDT [facility] Basophils % 1 % LAB HEMATOLOGY METHOD 06/28/2024 1:53 PM EDT [facility] Immature Granulocytes % 0 % LAB HEMATOLOGY METHOD 06/28/2024 1:53 PM EDT [facility] Neutrophils Absolute 3.72 1.60 - 6.10 10*3/uL LAB HEMATOLOGY METHOD 06/28/2024 1:53 PM EDT [facility] Lymphocytes Absolute 1.95 1.20 - 3.90 10*3/uL LAB HEMATOLOGY METHOD 06/28/2024 1:53 PM EDT [facility] Monocytes Absolute 0.52 0.30 - 0.90 10*3/uL LAB HEMATOLOGY METHOD 06/28/2024 1:53 PM EDT [facility] Eosinophils Absolute 0.27 0.00 - 0.50 10*3/uL LAB HEMATOLOGY METHOD 06/28/2024 1:53 PM EDT [facility] Basophils Absolute 0.08 0.00 - 0.10 10*3/uL LAB HEMATOLOGY METHOD 06/28/2024 1:53 PM EDT [facility] Immature Granulocytes Absolute 0.02 0.00 - 0.06 10*3/uL LAB HEMATOLOGY METHOD 06/28/2024 1:53 PM EDT [facility] Blood Venous blood specimen / Unknown Venipuncture / Unknown 06/28/2024 1:31 PM EDT 06/28/2024 1:51 PM EDT Narrative [facility] - 06/28/2024 1:53 PM EDT Therapeutic decision making should be based on absolute values, rather than percentages. us Brian Blevins MD LAB BLOOD ORDERABLES Final Resul t [facility] [address] [place] [address] * EKG now - STAT (adult) (06/28/2024 1:23 PM EDT) EKG DIAGNOSIS CLASS Abnormal MUSE ECG Ventricular Rate 71 BPM MUSE ECG Atrial Rate 71 BPM MUSE ECG MS Interval 256 ms MUSE ECG QRSD Interval 72 ms MUSE ECG QT Interval 374 ms MUSE ECG QTC Interval 406 ms MUSE ECG R [place] 5 degrees MUSE ECG T Wave [place] 66 degrees MUSE ECG Diagnosis Atrial-paced rhythm with prolonged AV conduction MUSE ECG Diagnosis Nonspecific ST and T wave abnormality MUSE ECG Diagnosis MUSE ECG Diagnosis MUSE ECG Diagnosis Confirmed by Andrew Gipson ([id number]) on 06/28/2024 9:07:52 PM MUSE ECG 06/28/2024 1:23 PM EDT 06/28/2024 9:07 PM EDT us Brian Blevins MD ECG ORDERABLES Final Result Performing Organization Address City/[facility]/ZIP Co de Phone Number MUSE ECG * (ABNORMAL) POCT glucose meter (06/28/2024 1:21 PM EDT) [facility] POCT Glucose 200(H) 74 - 99 mg/dL 06/28/2024 1:23 PM EDT [facility] Comment:Accuracy of a glucos e result obtained from a capillary whole blood specimen relies upon adequate, non-compromised capillary blood flow. If the capillary glucose result is not consistent with the patient's clinical signs and symptoms, glucose testing should be repeated with either an arterial or venous sample on the glucometer or sent to the main labortory for testing. Comment 06/28/2024 1:23 PM EDT [facility] Hospice Bereavement Coordinator ID Zoila Chin [id number] 1:23 PM EDT [facility] Device ID [id number] 06/28/2024 1:23 PM EDT [facility] Specimen Type POC Capillary 06/28/2024 1:23 PM EDT [facility] Blood Capillary blood specimen / Unknown 06/28/2024 1:21 PM EDT 06/28/2024 1:23 PM EDT us Generic Provider Poct LAB POINT OF CARE TEST DOCKED DEVICE UNSOLICITED RESULTS Final Result [facility] [address] [place] [address] documented in this encounter Visit Diagnoses Diagnosis Hallucinations- Primary documented in this encounter Administered Medications Inactive Administered Medications - up to 3 most recent administrations Medication Order MAR Action Action Date Dose Rate Site lactated Ringer's infusion 1,000 mL 1,000 mL, Intravenous, Once, 1 dose, On Mon06/28/24 at 1330, STAT New Bag 06/28/2024 1:30 PM EDT 1,000 mL documented in this encounter Active and Recently Administered Medications Times are shown in EDT. Scheduled Medication Order 06/26/2024 06/27/2024 06/28/2024 lactated Ringer's infusion 1,000 mL (COMPLETED) 1,000 mL, Intravenous, Once, 1 dose, On Mon06/28/24 at 1330, STAT 1330 (New Bag - Prov ider: Susan Solis RN) documented in this encounter Additional Health Concerns Assessment Noted Time A Body Mass Index follow-up plan has been documented for the patient 06/27/2024 12:05 PM EDT documented as of this encounter Care Teams [employer] Relationship Specialty Start Date End Date Miley Verma MD [address] [place] [address] PCP - General 06/28/24 documented as of this encounter
--- OUTSIDE RECORDS SUMMARY | 2024-07-28 16:51 | XMS_ITS | Encounter Summary ---
Author Organization Healthcare Address [address] [place] [address] Care Team Providers Care Crtt Name Role Phone Miley Verma MD Primary Care Provider [phone] Reason for Referral * Consultation (Routine) - Authorized Specialty Diagnoses / Procedures Referred By Contdavy t Referred To Contact Cardiology Diagnoses Hypertension, unspecified type Dakota Gayle MD [address] [place] [phone] Phone: tel: fax: Referral ID Status Reason Start Date Expiration Date Visits Requested Visits Authorized [id number] Authorized Specialty Services Required 07/28/2024 01/27/2026 1 1 Reason for Visit * Reason Comments Fall Encounter Details Date Type Department Care Team ([facility] st Contact Info) Description 07/28/2024 4:51 PM EDT - 07/28/2024 8:14 PM EDT Emergency [facility] [address] [place] [address] Dakota Gayle MD [address] [place] [phone] Hypertension, unspecified type (Primary Dx); Fall, initial encounter Discharge Disposition: Home or Self Care Social [...] Sign Reading Time Taken Comments Blood Pressure 167/115 07/28/2024 8:01 PM EDT Pulse 74 07/28/2024 8:01 PM EDT Temperature 36.5 C (97.7 F) 07/28/2024 8:12 PM EDT Respiratory Rate 15 07/28/2024 8:01 PM EDT Oxygen Saturation 91% 07/28/2024 8:01 PM EDT Inhaled Oxygen Concentration - - Weight 65 kg (143 lb 4.8 oz) 07/28/2024 5:00 PM EDT Height - - Body Mass Index 26.21 06/28/2024 1:23 PM EDT documented in this encounter Functional Status * Calculated C-SSRS Risk Score (Lifetime/Recent) Answer Date of Assessment Author No Risk Indicated 07/28/2024 5:15 PM EDT Sara Dover RN * Question Answer Date of Assessment Author 1. Wish to be (Past 1 Month) No 025 5:15 PM EDT Sara Dover RN 2. Non-Specific Active Suici yeyo Thoughts (Past 1 Month) No 07/28/2024 5:15 PM EDT Sara Dover RN 6. Suicidal Behavior (Lifetime) No 5:15 PM EDT Sara Dover RN documented as of this encounter Discharge Instructions * Discharge Instructions* Lin Coleman MD - 07/28/2024 7:59 PM EDT Please return to ED if your symptoms worsen, change in location, change in severity, new symptoms develop or if you become concerned for your health. Please take blood pressure multiple times a day, especially if you have a headache. Follow up with referral to [facility] to establish care for your heart problems. documented in this encounter Medications at Time of Discharge acetaminophen (Tylenol) 325 MG tablet Take 2 tablets by mouth every 6 hours. Under [place] law, monthly prescriptions (30 days) can be [...] time each day in the morning. 11/03/2022 Farxiga 5 MG tablet Take 1 tablet [...] mouth 2 (two) times a day. 11/02/2022 documented as of this encounter Miscellaneous Notes * ED Provider Notes - Lin Coleman MD - 07/28/2024 4:50 PM EDT - HPI Chief Complaint Patient presents with Fall HPI Abby Lopez is a 73 y.o. 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 Patient reports that she was attempting to stand from her toilet and pulling her pants up when she ???blacked out?? and then woke up on the ground complaining of a headache. She does not know if she lost consciousness or hit her head during the fall or if this was a mechanical fall from standing. She has been attempting to stand and ambulate following the event however an ambulance was called and she was transported to for further evaluation. She does endorse a history of Plavix use but has been off her blood thinner since her recent fall and diagnosis of IVH and subarachnoid hemorrhage. Currently she is complaining of a 9/10 headache but d enies any other visual changes, unilateral deficits or other associated symptoms at this time. Of note patient does endorse headache prior to fall today. Has been having chest pain for 3-4 days and has been taking someone else's nitroglycerin for management. Denies CP prior to fall. Patient History Past Medical History[1] Surgical History[2] Family History[3] Social History[4] Allergies: Allergies[5] Physical Exam ED Triage Vitals [07/28/24 1700] Temp Heart Rate Resp BP 36.4 ??C (97.5 ??F) 72 12 (!) 192/88 SpO2 Temp Source Heart Rate Source Patient Position 95 % Oral Monitor Sitting BP Location FiO2 (%) Right arm -- Physical Exam Vitals and nursing note reviewed. Constitutional: General: She is not in acute distress. Appearance: She is well-developed. She is not ill-appearing or diaphoretic. HENT: Head: Normocephalic and atraumatic. Eyes: Extraocular Movements: Extraocular movements intact. Conjunctiva/sclera: Conjunctivae normal. Pupils: Pupils are equal, round, and reactive to light. Cardiovascular: Rate and Rhythm: Normal rate and regular rhythm. Heart sounds: No murmur heard. Pulmonary: Effort: Pulmonary effort is normal. No respiratory distress. Breath sounds: Normal breath sounds. Abdominal: Palpations: Abdomen is soft. Tenderness: There is no abdominal tenderness. Musculoskeletal: General: No swelling, tenderness or signs of injury. Cervical back: Normal range of motion and neck supple. No tenderness. Skin: General: Skin is warm and dry. Capillary Refill: Capillary refill takes less than 2 seconds. Neurological: General: No focal deficit present. Mental Status: She is alert and oriented to person, place, and time. Cranial Nerves: No cranial nerve deficit. Motor: No weakness. Psychiatric: Mood and Affect: Mood normal. [place] Coma Scale Score: 15 ED Course & MDM - Assessment: 73 y.o. female presents to ED with complaint of fall. It should be noted that the chronic conditions includes recent IVH/SAH, bradycardia s/p ppm, recurrent falls and strokes, which currently is not at goal therapy. This complicates the clinical picture because it Comorbidities: may be exacerbatingsymptoms, increases the amount and complexity of data to be reviewed, complicates the clinical workup, and increases the risk for morbidity Differential Diagnosis: IVH, SAH, headache, hypertensive emergency, hypertensive urgency, tension headache, syncope, arrhythmia, ppm malfunction In order to fully explore the differential diagnosis the following treatments and tests were ordered: All Other Orders Ordered Status Ordering Provider 07/28/241716 Urinalysis with reflex microscopic AND reflex culture (IF UTI SUSPECTED) STAT Acknowledged LIN COLEMAN 07/28/241716 XR Chest 1 View One time imaging Acknowledged LIN COLEMAN 07/28/241716 Urinalysis with reflex microscopic (Culture NOT Included) PROCEDURE ONCE Ordered LIN COLEMAN 07/28/241716 Urine Jules Panel PROCEDURE ONCE Ordered LIN COLEMAN 07/28/241716 EKG now - STAT (adult) Once Acknowledged LIN COLEMAN 07/28/241716 Troponin now and 120 min STAT Acknowledged LIN COLEMAN 07/28/241716 BNP STAT Acknowledged LIN COLEMAN 07/28/24 171 Thyroid Stimulating Hormone, Plasma STAT Acknowledged LIN COLEMAN 07/28/24 171 Free T4, Plasma STAT Acknowledged LIN COLEMAN 07/28/24 171 CBC w/diff STAT Acknowledged LIN COLEMAN 07/28/24 171 PT-INR STAT Acknowledged LIN COLEMAN 07/28/24 1710 CMP STAT Acknowledged LIN COLEMAN 07/28/[address] Head wo IV Contrast Once Acknowledged LIN COLEMAN 07/28/[address] Cervical Spine wo IV Contrast Once Acknowledged LIN COLEMAN ED Course as of 07/28/241957 Sun Jul 28, 20241728 Patient presents to ED for concerns of fall and headache. On chart review, recent admission totrauma surgery after sustaining IVH and SAH after fall on 06/26/24. [KS] 1730 On arrival, HAD, hypertensive with SBP 190-200s, no neuro deficits, GCS 15, no obvious signs of trauma or injury. [KS] 174 EKG now - STAT (adult) Personally reviewed and interpreted by me. Sinus rhythm with underlying atrial paced PPM with bigeminy firing. No segment prolongations or ST/T wave changes concerning for [KS] 174 Hemoglobin(!): 10.0 Mild anemia compared to baseline [KS] 185 Will give home coreg dose for concerns of hypertension in ED after personal review of CT head and on my evaluation no new bleed [KS] 1911 XR Chest 1 View IMPRESSION: Cardiomegaly, similar over the interval. Mild scarring and atelectasis without acute focal consolidation. Asymmetric elevation right hemidiaphragm. No pneumothorax. [KS] 193 CT Head wo IV Contrast IMPRESSION: CT head: No acute intracranial abnormality. Similar encephalomalacia/gliosis in the left posterior temporal lobe. CT cervical spine: No acute fracture or malalignment. [KS] 1955 BP(!): 160/82 Given home dose of coreg and on reassessment had improvement in BP and has improvement in headache [KS] 1956 After interactive discussion with patient. She feels comfortable with discharge home as her ctscan shows no new bleed. [KS] 1956 We will give cardiology referral based on her cardiac history and 2 episodes of presumed syncope. She feels comfortable with this plan [KS] ED Course User Index [KS] Lin Coleman MD Clinical Impressions as of 07/28/241957 Fall, initial encounter Social Determinates of Health Risks (including Economic Stability, Education and level of understanding, Healthcare access and quality and concerning social factors): None identified on this visit Ultimately, this patient was Was discharged Home (Discharge) The encounter diagnosis was Fall, initial encounter. . Patient was counseled on the diagnoses. Discharge medications if any are listed below. Listed medications are thought be either curative for listed diagnoses or will help control ongoing symptoms. Patient is requested to follow up with Patient's Primary Care Provider and Cardiology in order to obtain routine follow-up and specialty care. Instructions on follow up as well as precautions to return to the ER provided verbally by the EM provider, as well as written in patients discharge education packet. ED Prescriptions None - [1] Past Medical [...] Never [5] Allergies Allergen Reactions Lisinopril Itching Lin Coleman MD Resident 07/28/241957 Cosigned by Dakota Gayle MD at 07/30/2024 1:38 AM EDT Associated attestation - Dakota Gayle MD - 07/30/2024 1:38 AM EDT I saw and evaluated the patient with the resident/fellow. I discussed the case with the resident/fellow and agree with the findings and plan as documented. Syncope appears to be combination of micturition syncope/orthostasis as it occurred after urinating upon standing. Initial EKG without findingsconcerning for ischemia, intermittent pacing and zuni beats, throughout her stay she was being persistently paced. Imaging negative for trauma. Patient would like to follow-up with cardiology as outpatient regarding recent episodes of syncope and to establish care with cardiology. Ultimately discharged in stable condition with return precautions and follow-up instructions. * ED Triage Notes - Lupillo Arriola RN - 07/28/2024 4:50 PM EDT PT was at home and tried to get up to go to use her bathroom. She fell with the change in position.She lives at home with her daughter so EMS was called to assist. Cayla REDMOND arrived at her home and PT was trying to stand back up. She had no memory of the fall and is unsure if she hit her head or had +LOC. EMS saw no visible sign of injury from the fall. PT had been seen for a fall about a month prior at and was DX with a stable brain bleed. Daughter is worried that today's fall impacted thatissue. Cayla REDMOND transported PT to ER. On arrival, PT is GCS 15 and VSS. documented in this encounter Plan of Treatment Upcoming Encounters Date Type Department Care Team (Late st Contact Info) Description 08/22/2024 8:30 AM EDT Appointment [facility] [address] [place] [address] 08/22/2024 9:40 AM EDT Office Visit [facility] [address] [place] [address] Sonia Up, YOLANDE [address] [place] [address] 10/18/2024 8:15 AM EDT Office Visit [facility] [place] [address] [place] [address] Carlitos Cowart, DO [address] [place] [address] Scheduled Referrals Name Type Priority Associated Diagnoses Orde r Schedule Discharge Ambulatory referral to Cardiology Outpatient Referral Routine Hypertension, unspecified type Expected: 07/28/2024 (Approximate), Expires: 01/29/2026 documented as of this encounter Procedures Procedure Name Priority Date/Time Associated Diagnosis Comments URINALYSIS WITH REFLEX MICROSCOPIC AND CULTURE STAT 07/28/2024 7:39 PM EDT URINE JULES PANEL STAT 07/28/2024 7:39 PM EDT TROPONIN T, HIGH SENSITIVITY, 2 HOUR, PLASMA Timed 07/28/2024 7:39 PM EDT URINALYSIS WITH REFLEX MICROSCOPIC STAT 07/28/2024 7:[address] CERVICAL SPINE WO IV CONTRAST STAT 07/28/2024 6:[address] HEAD WO IV CONTRAST STAT 6:47 PM EDT XR CHEST 1 VIEW STAT 07/28/2024 5:53 PM EDT MAGNESIUM, PLASMA STAT 07/28/2024 5:5 0 PM EDT ECG ADULT STAT 07/28/2024 5:31 PM EDT EXTRA TUBE GOLD TOP Routine 07/28/2024 5 :24 PM EDT EXTRA TUBE GOLD TOP Routine 07/28/2024 5 :24 PM EDT TROPONIN T, HIGH SENSITIVITY, 0 HOUR, PLASMA, REFLEX TO 2 HOUR STAT 07/28/2024 5:24 PM EDT EXTRA TUBES Routine 07/28/2024 5:24 PM EDT N-TERMINAL PROBNP, PLASMA STAT 07/28/2024 5:24 PM EDT PROTHROMBIN TIME(PT) / INR STAT 07/28/2024 5:24 PM EDT CBC WITH AUTO DIFFERENTIAL STAT 07/28/2024 5:24 PM EDT TSH STAT 07/28/2024 5:24 PM EDT FREE T4, PLASMA STAT 07/28/2024 5:24 PM EDT COMPREHENSIVE METABOLIC PANEL, PLASMA STAT 07/28/2024 5:24 PM EDT documented in this encounter Results * (ABNORMAL) Troponin T, High Sensitivity, 2 Hour, Plasma (07/28/2024 7:39 PM EDT) Troponin T, High Sensitivity, 2 Hour 19(H) <14 ng/L 07/28/2024 8:[address] [facility] Troponin Delta 1 <10 ng/L 07/28/2024 8:[address] [facility] Troponin Delta Interpretation Not Significant 07/28/2024 8:[address] [facility] Comment:Not Significant. No acute change in troponin observed between the baseline and 2 hour samples. Blood Venous blood specimen / Unknown Venipuncture / Unknown 07/28/2024 7:39 PM EDT 07/28/2024 7:42 PM EDT Dakota Gayle MD LAB BLOOD ORDERABLES Final Result Performing Organization Address [facility] Co de Phone Number [facility] [address] [place] [address] * Urine Jules Panel (07/28/2024 7:39 PM EDT) Extra Reflex urine culture not indicated 07/29/2024 4:[address] [facility] Comment: Previously prelim verified as Specimen evaluation in progress on 07/28/2024 at 2101 EDT. Previously prelim verified as Specimen evaluation in progress on 07/28/2024 at 2201 EDT. Previously prelim verified as Specimen evaluation in progress on 07/28/2024 at 2301 EDT. Previously prelim verified as Specimen evaluation in progress on 07/29/2024 at 0002 EDT. Previously prelim verified as Specimen evaluation in progress on 07/29/2024 at 0104 EDT. Previously prelim verified as Specimen evaluation in progress on 07/29/2024 at 0202 EDT. Previously prelim verified as Specimen evaluation in progress on 07/29/2024 at 0302 EDT. Urine Urine specimen obtained by clean catch procedure / Unknown Non-blood Collection / Unknown 07/28/2024 7:39 PM EDT 07/28/2024 7:55 PM EDT Dakota Gayle MD LAB URINE ORDERABLES Final Result Performing Organization Address [facility] Co de Phone Number [facility] [address] [place] [address] * Urinalysis with reflex microscopic (Culture NOT Included) (07/28/2024 7:39 PM EDT) Color, Urine Yellow LAB URINALYSIS - AUTOMATED METHOD 07/28/2024 7:[address] [facility] Clarity, Urine Clear LAB URINALYSIS - AUTOMATED METHOD 07/28/2024 7:[address] [facility] Spec Four States, Urine 1.006 1.005 - 1.030 LAB URINALYSIS - AUTOMATED METHOD 07/28/2024 7:[address] [facility] pH, Urine 7.0 5.0 - 8.0 LAB URINALYSIS - AUTOMATED METHOD 07/28/2024 7:[address] [facility] Protein, Urine Negative Negative mg/dL LAB URINALYSIS - AUTOMATED METHOD 07/28/2024 7:[address] [facility] Glucose, Urine Negative Negative mg/dL LAB URINALYSIS - AUTOMATED METHOD 07/28/2024 7:[address] [facility] Ketones, Urine Negative Negative mg/dL LAB URINALYSIS - AUTOMATED METHOD 07/28/2024 7:[address] [facility] Blood, Urine Negative Negative LAB URINALYSIS - AUTOMATED METHOD 07/28/2024 7:[address] [facility] Bilirubin, Urine Negative Negative LAB URINALYSIS - AUTOMATED METHOD 07/28/2024 7:[address] [facility] Urobilinogen, Urine 0.2 0.2 to 1.0 mg/dL LAB URINALYSIS - AUTOMATED METHOD 07/28/2024 7:[address] [facility] Leukocytes, Urine Negative Negative LAB URINALYSIS - AUTOMATED METHOD 07/28/2024 7:[address] [facility] Nitrite, Urine Negative Negative LAB URINALYSIS - AUTOMATED METHOD 07/28/2024 7:[address] [facility] Urine Urine specimen obtained by clean catch procedure / Unknown Non-blood Collection / Unknown 07/28/2024 7:39 PM EDT 07/28/2024 7:42 PM EDT Dakota Gayle MD LAB URINE ORDERABLES Final Result [facility] [address] [place] [address] * CT Cervical Spine wo IV Contrast (07/28/2024 6:47 PM EDT) Anatomical Region Laterality Modality Spine, C-spine Computed Tomogra phy Impressions 07/28/2024 7:[address] head: No acute intracranial abnormality. Similar encephalomalacia/gliosis in the left posterior temporal lobe. CT cervical spine: No acute fracture or malalignment. CRITICAL RESULT: No. COMMUNICATION: Per this written report. Drafted by Tory Davidson MD on 07/28/2024 7:26 PM Final report signed by Tory Davidson MD on 07/28/2024 7:34 PM Narrative 07/28/2024 7:34 PM EDT CLINICAL INDICATION: Head trauma, minor (Age >= 65y) TECHNIQUE: Routine contiguous axial CT images of the head were obtained without contrast administration. Imaging of the entire cervical spine (to include the cervicothoracic junction) was performed, using spiral technique, without contrast administration. Reformatted images in the coronal and sagittal planes were generated from the axial data set to facilitate diagnostic accuracy and/or surgical planning. Total DLP (Dose-Length Product): 985.48 mGy.cm (accession [id number]), 985.48 mGy.cm (accession [id number]). Please note: The reported value represents the total of one or more individual components during the CT acquisition on this date and at this time, and as such, the same value may appear in more than one CT report depending on the interpreting/reporting physicians. COMPARISON: 06/28/2024 FINDINGS: CT HEAD: No acute intracranial abnormality. No evidence of acute hemorrhage, territorial infarct, intra or extra-axial fluid collections. Similar hypoattenuation in the left posterior temporal lobe. Generalized cerebral atrophy is present. Similar marked supratentorial white matter low attenuation alterations, most marked in the periventricular white matter, sequela of small vessel ischemic disease. Otherwise the lora white matter differentiation is maintained. No mass, mass effect, or midline displacement of structures. Normal ventricular size and configuration for age. Bilateral ICA siphon and vertebral artery atherosclerosis noted to prior. No displaced or depressed calvarial fractures. The visualized paranasal sinuses and mastoid air cells are clear. CT SPINE: Vertebrae: No acute fracture. The odontoid atlantoaxial joint and the occipital condyles are intact. Alignment: Normal spinal alignment. Paraspinal Soft Tissues: No paraspinal hematoma. Lung Apices: No pneumothorax at the lung apices. Procedure Note Tory Davidson MD - 07/28/2024 CLINICAL INDICATION: Head trauma, minor (Age >= 65y) TECHNIQUE: Routine contiguous axial CT images of the head were obtained withoutcontrast administration. Imaging of the entire cervical spine (to include the cervicothoracicjunction) was performed, using spiral technique, without contrastadministration. Reformatted images in the coronal and sagittal planes weregenerated from the axial data set to facilitate diagnostic accuracy and/orsurgical planning. Total DLP (Dose-Length Product): 985.48 mGy.cm (accession [id number]),985.48 mGy.cm (accession [id number]). Please note: The reported valuerepresents the total of one or more individual components during the CTacquisition on this date and at this time, and as such, the same value mayappear in more than one CT report depending on the interpreting/reportingphysicians. COMPARISON: 06/28/2024 FINDINGS: CT HEAD: No acute intracranial abnormality. No evidence of acute hemorrhage,territorial infarct, intra or extra-axial fluid collections. Similarhypoattenuation in the left posterior temporal lobe. Generalized cerebralatrophy is present. Similar marked supratentorial white matter lowattenuation alterations, most marked in the periventricular white matter,sequela of small vessel ischemic disease. Otherwise the lora white matterdifferentiation is maintained. No mass, mass effect, or midlinedisplacement of structures. Normal ventricular size and configuration forage. Bilateral ICA siphon and vertebral artery atherosclerosis noted to prior.No displaced or depressed calvarial fractures. The visualized paranasalsinuses and mastoid air cells are clear. CT SPINE: Vertebrae: No acute fracture. The odontoid atlantoaxial joint and theoccipital condyles are intact. Alignment: Normal spinal alignment. Paraspinal Soft Tissues: No paraspinal hematoma. Lung Apices: No pneumothorax at the lung apices. IMPRESSION: CT head: No acute intracranial abnormality. Similarencephalomalacia/gliosis in the left posterior temporal lobe. CT cervical spine: No acute fracture or malalignment. CRITICAL RESULT: No. COMMUNICATION: Per this written report. Drafted by Tory Davidson MD on 07/28/2024 7:26 PM Final report signed by Tory Davidson MD on 07/28/2024 7:34 PM us Dakota Gayle MD IMG CT PROCEDURES Final Res ult * CT Head wo IV Contrast (07/28/2024 6:47 PM EDT) Anatomical Region Laterality Modality Head Computed Tomogra phy Impressions 07/28/2024 7:[address] head: No acute intracranial abnormality. Similar encephalomalacia/gliosis in the left posterior temporal lobe. CT cervical spine: No acute fracture or malalignment. CRITICAL RESULT: No. COMMUNICATION: Per this written report. Drafted by Tory Davidson MD on 07/28/2024 7:26 PM Final report signed by Tory Davidson MD on 07/28/2024 7:34 PM Narrative 07/28/2024 7:34 PM EDT CLINICAL INDICATION: Head trauma, minor (Age >= 65y) TECHNIQUE: Routine contiguous axial CT images of the head were obtained without contrast administration. Imaging of the entire cervical spine (to include the cervicothoracic junction) was performed, using spiral technique, without contrast administration. Reformatted images in the coronal and sagittal planes were generated from the axial data set to facilitate diagnostic accuracy and/or surgical planning. Total DLP (Dose-Length Product): 985.48 mGy.cm (accession [id number]), 985.48 mGy.cm (accession [id number]). Please note: The reported value represents the total of one or more individual components during the CT acquisition on this date and at this time, and as such, the same value may appear in more than one CT report depending on the interpreting/reporting physicians. COMPARISON: 06/28/2024 FINDINGS: CT HEAD: No acute intracranial abnormality. No evidence of acute hemorrhage, territorial infarct, intra or extra-axial fluid collections. Similar hypoattenuation in the left posterior temporal lobe. Generalized cerebral atrophy is present. Similar marked supratentorial white matter low attenuation alterations, most marked in the periventricular white matter, sequela of small vessel ischemic disease. Otherwise the lora white matter differentiation is maintained. No mass, mass effect, or midline displacement of structures. Normal ventricular size and configuration for age. Bilateral ICA siphon and vertebral artery atherosclerosis noted to prior. No displaced or depressed calvarial fractures. The visualized paranasal sinuses and mastoid air cells are clear. CT SPINE: Vertebrae: No acute fracture. The odontoid atlantoaxial joint and the occipital condyles are intact. Alignment: Normal spinal alignment. Paraspinal Soft Tissues: No paraspinal hematoma. Lung Apices: No pneumothorax at the lung apices. Procedure Note Tory Davidson MD - 07/28/2024 CLINICAL INDICATION: Head trauma, minor (Age >= 65y) TECHNIQUE: Routine contiguous axial CT images of the head were obtained withoutcontrast administration. Imaging of the entire cervical spine (to include the cervicothoracicjunction) was performed, using spiral technique, without contrastadministration. Reformatted images in the coronal and sagittal planes weregenerated from the axial data set to facilitate diagnostic accuracy and/orsurgical planning. Total DLP (Dose-Length Product): 985.48 mGy.cm (accession [id number]),985.48 mGy.cm (accession [id number]). Please note: The reported valuerepresents the total of one or more individual components during the CTacquisition on this date and at this time, and as such, the same value mayappear in more than one CT report depending on the interpreting/reportingphysicians. COMPARISON: 06/28/2024 FINDINGS: CT HEAD: No acute intracranial abnormality. No evidence of acute hemorrhage,territorial infarct, intra or extra-axial fluid collections. Similarhypoattenuation in the left posterior temporal lobe. Generalized cerebralatrophy is present. Similar marked supratentorial white matter lowattenuation alterations, most marked in the periventricular white matter,sequela of small vessel ischemic disease. Otherwise the lora white matterdifferentiation is maintained. No mass, mass effect, or midlinedisplacement of structures. Normal ventricular size and configuration forage. Bilateral ICA siphon and vertebral artery atherosclerosis noted to prior.No displaced or depressed calvarial fractures. The visualized paranasalsinuses and mastoid air cells are clear. CT SPINE: Vertebrae: No acute fracture. The odontoid atlantoaxial joint and theoccipital condyles are intact. Alignment: Normal spinal alignment. Paraspinal Soft Tissues: No paraspinal hematoma. Lung Apices: No pneumothorax at the lung apices. IMPRESSION: CT head: No acute intracranial abnormality. Similarencephalomalacia/gliosis in the left posterior temporal lobe. CT cervical spine: No acute fracture or malalignment. CRITICAL RESULT: No. COMMUNICATION: Per this written report. Drafted by Tory Davidson MD on 07/28/2024 7:26 PM Final report signed by Tory Davidson MD on 07/28/2024 7:34 PM us Dakota Gayle MD IMG CT PROCEDURES Final Res ult * XR Chest 1 View (07/28/2024 5:53 PM EDT) Anatomical Region Laterality Modality Chest Digital Radiogra phy Impressions 07/28/2024 6:21 PM EDT Cardiomegaly, similar over the interval. Mild scarring and atelectasis without acute focal consolidation. Asymmetric elevation right hemidiaphragm. No pneumothorax. CRITICAL RESULT: No. COMMUNICATION: Per this written report. Drafted by Bandar Mittal MD on 07/28/2024 6:19 PM Final report signed by Bandar Mittal MD on 07/28/2024 6:21 PM Narrative 07/28/2024 6:21 PM EDT CLINICAL INDICATION: syncope and fall TECHNIQUE: XR CHEST 1 VIEW COMPARISON: CT chest 06/28/2024. Chest radiograph 11/18/2022. FINDINGS: Redemonstration cardiac device via left subclavian approach. Cardiomegaly, similar over the interval. Mild scarring and atelectasis without acute focal consolidation. Asymmetric elevation right hemidiaphragm. No pneumothorax. No acute displaced rib fracture. Procedure Note aBndar Mittal MD - 07/28/2024 CLINICAL INDICATION: syncope and fall TECHNIQUE: XR CHEST 1 VIEW COMPARISON: CT chest 06/28/2024. Chest radiograph 11/18/2022. FINDINGS: Redemonstration cardiac device via left subclavian approach. Cardiomegaly,similar over the interval. Mild scarring and atelectasis without acutefocal consolidation. Asymmetric elevation right hemidiaphragm. Nopneumothorax. No acute displaced rib fracture. IMPRESSION: Cardiomegaly, similar over the interval. Mild scarring and atelectasiswithout acute focal consolidation. Asymmetric elevation righthemidiaphragm. No pneumothorax. CRITICAL RESULT: No. COMMUNICATION: Per this written report. Drafted by Bandar Mittal MD on 07/28/2024 6:19 PM Final report signed by Bandar Mittal MD on 07/28/2024 6:21 PM Dakota Gayle MD IMG XR PROCEDURES Final Res ult * (ABNORMAL) Magnesium (07/28/2024 5:50 PM EDT) [facility] Magnesium, Plasma 1.6(L) 1.9 - 2.4 mg/dL 07/28/2024 6:03 PM EDT [facility] Blood Venous blood specimen / Unknown Venipuncture / Unknown 07/28/2024 5:50 PM EDT 07/28/2024 5:52 PM EDT Dakota Gayle MD LAB BLOOD ORDERABLES Final Result Performing Organization Address City/[facility] Co de Phone Number [facility] [address] [place] [address] * EKG now - STAT (adult) (07/28/2024 5:31 PM EDT) [facility] EKG DIAGNOSIS CLASS Abnormal MUSE ECG Ventricular Rate 73 BPM MUSE ECG Atrial Rate 73 BPM MUSE ECG NV Interval 162 ms MUSE ECG QRSD Interval 72 ms MUSE ECG QT Interval 392 ms MUSE ECG QTC Interval 431 ms MUSE ECG R [place] -6 degrees MUSE ECG T Wave [place]ing 18 degrees MUSE ECG Diagnosis Atrial-paced rhythm in a pattern of bigeminy MUSE ECG Diagnosis Otherwise normal ECG MUSE ECG Diagnosis MUSE ECG Diagnosis Confirmed by Zhang Cornejo ([id number]) on 07/30/2024 8:52:13 AM MUSE ECG 07/28/2024 5:31 PM EDT 07/30/2024 8:52 AM EDT Dakota Gayle MD ECG ORDERABLES Final Resul t MUSE ECG * Gold Top (07/28/2024 5:24 PM EDT) [facility] Extra Hold for add-ons 07/28/2024 8:[address] [facility] Comment:Auto resulted. Blood Venous blood specimen / Unknown 07/28/2024 5:24 PM EDT 07/28/2024 5:29 PM EDT Dakota Gayle MD LAB BLOOD ORDERABLES Final Result [facility] [address] [place] [address] * Gold Top (07/28/2024 5:24 PM EDT) Extra Hold for add-ons 07/28/2024 8:[address] [facility] Comment:Auto resulted. Blood Venous blood specimen / Unknown 07/28/2024 5:24 PM EDT 07/28/2024 5:29 PM EDT Dakota Gayle MD LAB BLOOD ORDERABLES Final Result Performing Organization Address [facility]/ZIP Co de Phone Number [facility] [address] [place] [address] * Free T4, Plasma (07/28/2024 5:24 PM EDT) Free T4, Plasma 0.8 0.8 - 1.7 ng/dL 07/28/2024 6:[address] [facility] Blood Venous blood specimen / Unknown Venipuncture / Unknown 07/28/2024 5:24 PM EDT 07/28/2024 5:38 PM EDT Dakota Gayle MD LAB BLOOD ORDERABLES Final Result [facility] [address] [place] [address] * Thyroid Stimulating Hormone, Plasma (07/28/2024 5:24 PM EDT) Thyroid Stimulating Hormone, Plasma 2.61 0.40 - 4.20 uIU/mL 07/28/2024 6:[address] [facility] Blood Venous blood specimen / Unknown Venipuncture / Unknown 07/28/2024 5:24 PM EDT 07/28/2024 5:38 PM EDT us Dakota Gayle MD LAB BLOOD ORDERABLES Final Result Performing Organization Address City/[facility]/ZIP Co de Phone Number [facility] [address] [place] [address] * BNP (07/28/2024 5:24 PM EDT) N-Terminal, PROBNP, Plasma 116 0 - 899 pg/mL 07/28/2024 6:[address] [facility] Blood Venous blood specimen / Unknown Venipuncture / Unknown 07/28/2024 5:24 PM EDT 07/28/2024 5:38 PM EDT us Dakota Gayle MD LAB BLOOD ORDERABLES Final Result Performing Organization Address [facility] Co de Phone Number [facility] [address] [place] [address] * (ABNORMAL) Troponin now and 120 min (07/28/2024 5:24 PM EDT) Troponin T, High Sensitivity, 0 Hour 18(H) <14 ng/L 07/28/2024 6:[address] [facility] Blood Venous blood specimen / Unknown Venipuncture / Unknown 07/28/2024 5:24 PM EDT 07/28/2024 5:38 PM EDT us Dakota Gayle MD LAB BLOOD ORDERABLES Final Result Performing Organization Address City/[facility]/ZIP Co de Phone Number [facility] [address] [place] [address] * (ABNORMAL) CMP (07/28/2024 5:24 PM EDT) Glucose, Plasma 115(H) 74 - 99 mg/dL 07/28/2024 6:[address] [facility] BUN, Plasma 11 8 - 23 mg/dL 07/28/2024 6:[address] [facility] Creatinine, Plasma 0.98 0.60 - 1.10 mg/dL 07/28/2024 6:[address] [facility] BUN/Creatinine Ratio 11 07/28/2024 6:[address] [facility] Sodium, Plasma 141 136 - 145 mmol/L 07/28/2024 6:[address] [facility] Potassium, Plasma 3.0(L) 3.6 - 4.9 mmol/L 07/28/2024 6:[address] [facility] Chloride, Plasma 115(H) 97 - 107 mmol/L 07/28/2024 6:[address] [facility] CO2, Plasma 17(L) 22 - 29 mmol/L 07/28/2024 6:[address] [facility] Anion Gap 9 6 - 16 mmol/L 07/28/2024 6:[address] [facility] Total Calcium, Plasma 6.8(L) 8.9 - 10.2 mg/dL 07/28/2024 6:[address] [facility] Total Protein 5.2(L) 6.3 - 7.9 g/dL 07/28/2024 6:[address] [facility] Albumin, Plasma 3.1(L) 3.5 - 5.2 g/dL 07/28/2024 6:[address] [facility] AST, Plasma 13 10 - 35 U/L 07/28/2024 6:[address] [facility] ALT, Plasma 13 10 - 35 U/L 07/28/2024 6:[address] [facility] Alkaline Phosphatase, Plasma 60 46 - 142 U/L 07/28/2024 6:[address] [facility] Total Bilirubin, Plasma <0.2(L) 0.2 - 1.1 mg/dL 07/28/2024 6:[address] [facility] eGFRcr 61.1 mL/min/1.7 3m*2 07/28/2024 6:[address] [facility] Comment:Reported eGFRcr in m L/min/1.73m2 is based the CKD-EPI 2020 equation that does not use a race coefficient. Blood Venous blood specimen / Unknown Venipuncture / Unknown 07/28/2024 5:24 PM EDT 07/28/2024 5:38 PM EDT Dakota Gayle MD LAB BLOOD ORDERABLES Final Result [facility] [address] [place] [address] * PT-INR (07/28/2024 5:24 PM EDT) Prothrombin Time 14.0 12.0 - 14.3 sec 07/28/2024 5:[address] [facility] INR 1.1 0.9 - 1.1 07/28/2024 5:[address] [facility] Blood Venous blood specimen / Unknown Venipuncture / Unknown 07/28/2024 5:24 PM EDT 07/28/2024 5:[address] [facility] - 07/28/2024 5:38 PM EDT OPTIMAL INR RANGES FOR PATIENT ON ORAL ANTICOAGULANT THERAPY Prevention of venous thromboembolism INR 2.0 to 3.0 In patients with heart disease: Atrial fibrillation INR 2.0 to 3.0 Valvular heart disease INR 2.0 to 3.0 Tissue heart valves INR 2.0 to 3.0 Mechanical prosthetic valves INR 2.5 to 3.5 Prevention of recurrent AK INR 2.5 to 3.5 Dakota Gayle MD LAB BLOOD ORDERABLES Final Result Performing Organization Address City/[facility]/ZIP Co de Phone Number [facility] [address] [place] [address] * (ABNORMAL) CBC w/diff (07/28/2024 5:24 PM EDT) WBC Count 4.99 3.70 - 10.30 10*3/uL LAB HEMATOLOGY METHOD 07/28/2024 5:[address] [facility] RBC Count 3.06(L) 3.90 - 5.20 10*6/uL LAB HEMATOLOGY METHOD 07/28/2024 5:[address] [facility] HGB 10.0(L) 11.2 - 15.7 g/dL LAB HEMATOLOGY METHOD 07/28/2024 5:[address] [facility] HCT 28.4(L) 34.0 - 45.0 % LAB HEMATOLOGY METHOD 07/28/2024 5:[address] [facility] Platelet Count 197 155 - 369 10*3/uL LAB HEMATOLOGY METHOD 07/28/2024 5:[address] [facility] MCV 93 79 - 98 fL LAB HEMATOLOGY METHOD 07/28/2024 5:[address] [facility] MCH 32.7(H) 26.0 - 32.0 pg LAB HEMATOLOGY METHOD 07/28/2024 5:[address] [facility] MCHC 35.2 30.7 - 35.5 g/dL LAB HEMATOLOGY METHOD 07/28/2024 5:[address] [facility] RDW 12.4 11.5 - 14.5 % LAB HEMATOLOGY METHOD 07/28/2024 5:[address] [facility] MPV 8.4(L) 8.8 - 12.5 fL LAB HEMATOLOGY METHOD 07/28/2024 5:[address] [facility] nRBC 0.0 <=0.0 per 100 WBCs LAB HEMATOLOGY METHOD 07/28/2024 5:[address] [facility] Differential Type Automated LAB HEMATOLOGY METHOD 07/28/2024 5:[address] [facility] Neutrophils % 62 % LAB HEMATOLOGY METHOD 07/28/2024 5:[address] [facility] Lymphocytes % 26 % LAB HEMATOLOGY METHOD 07/28/2024 5:[address] [facility] Monocytes % 7 % LAB HEMATOLOGY METHOD 07/28/2024 5:[address] [facility] Eosinophils % 3 % LAB HEMATOLOGY METHOD 07/28/2024 5:[address] [facility] Basophils % 1 % LAB HEMATOLOGY METHOD 07/28/2024 5:[address] [facility] Immature Granulocytes % 1 % LAB HEMATOLOGY METHOD 07/28/2024 5:[address] [facility] Neutrophils Absolute 3.10 1.60 - 6.10 10*3/uL LAB HEMATOLOGY METHOD 07/28/2024 5:[address] [facility] Lymphocytes Absolute 1.30 1.20 - 3.90 10*3/uL LAB HEMATOLOGY METHOD 07/28/2024 5:[address] [facility] Monocytes Absolute 0.35 0.30 - 0.90 10*3/uL LAB HEMATOLOGY METHOD 07/28/2024 5:[address] [facility] Eosinophils Absolute 0.17 0.00 - 0.50 10*3/uL LAB HEMATOLOGY METHOD 07/28/2024 5:[address] [facility] Basophils Absolute 0.04 0.00 - 0.10 10*3/uL LAB HEMATOLOGY METHOD 07/28/2024 5:[address] [facility] Immature Granulocytes Absolute 0.03 0.00 - 0.06 10*3/uL LAB HEMATOLOGY METHOD 07/28/2024 5:[address] [facility] Blood Venous blood specimen / Unknown Venipuncture / Unknown 07/28/2024 5:24 PM EDT 07/28/2024 5:[address] [facility] - 07/28/2024 5:29 PM EDT Therapeutic decision making should be based on absolute values, rather than percentages. us Dakota Gayle MD LAB BLOOD ORDERABLES Final Result [facility] [address] [place] [address] documented in this encounter Visit Diagnoses Diagnosis Hypertension, unspecified type- Primary Fall, initial encounter documented in this encounter Administered Medications Inactive Administered Medications - up to 3 most recent administrations Medication Order MAR Action Action Date Dose Rate Site carvedilol (Coreg) tablet 6.25 mg 6.25 mg, Oral, Once, 1 dose, On Mon07/28/24 at 1855, Routine Given 07/28/2024 7:09 PM EDT 6.25 mg HYDROmorphone (Dilaudid) injection 0.5 mg 0.5 mg, Intravenous, Once, 1 dose, On Mon07/28/24 at 1730, STAT Given 07/28/2024 5:33 PM EDT 0.5 mg HYDROmorphone (Dilaudid) injection 0.5 mg 0.5 mg, Intravenous, Once, 1 dose, On Mon07/28/24 at 1825, STAT Given 07/28/2024 6:25 PM EDT 0.5 mg HYDROmorphone (Dilaudid) injection 0.5 mg 0.5 mg, Intravenous, Every 2 hour PRN, Starting on 07/28/24 at 1820, Until 07/28/24 at 2214, STAT, severe pain magnesium oxide (Mag-Ox) tablet 800 mg 800 mg, Oral, Once, 1 dose, On 07/28/24 at 2000, Routine Given 07/28/2024 8:06 PM EDT 800 mg ondansetron (Zofran) injection 4 mg 4 mg, Intravenous, Once, 1 dose, On 07/28/24 at 1730, STAT Given 07/28/2024 5:33 PM EDT 4 mg documented in this encounter Active and Recently Administered Medications Times are shown in EDT. Scheduled Medication Order 07/26/2024 07/27/2024 07/28/2024 carvedilol (Coreg) tablet 6.25 mg (COMPLETED) 6.25 mg, Oral, Once, 1 dose, On 07/28/24 at 1855, Routine 1909 (Given - Provid er: Vicki Hinkle RN) HYDROmorphone (Dilaudid) injection 0.5 mg (COMPLETED) 0.5 mg, Intravenous, Once, 1 dose, On 07/28/24 at 1730, STAT 1733 (Given - Provid er: Sara Dover RN)173 (Override Pull - Provider: Sara Dover RN) HYDROmorphone (Dilaudid) injection 0.5 mg (COMPLETED) 0.5 mg, Intravenous, Once, 1 dose, On 07/28/24 at 1825, STAT 1825 (Given - Provid er: Sara Dover RN) magnesium oxide (Mag-Ox) tablet 800 mg (COMPLETED) 800 mg, Oral, Once, 1 dose, On 07/28/24 at 2000, Routine 2005 (Given - Provid er: Vicki Hinkle RN) ondansetron (Zofran) injection 4 mg (COMPLETED) 4 mg, Intravenous, Once, 1 dose, On 07/28/24 at 1730, STAT 1733 (Given - Provid er: Sara Dover RN)173 (Override Pull - Provider: Sara Dover RN) PRN Medication Order 07/26/2024 07/27/2024 07/28/2024 HYDROmorphone (Dilaudid) injection 0.5 mg 0.5 mg, Intravenous, Every 2 hour PRN, Starting on 07/28/24 at 1820, Until 07/28/24 at 2214, STAT, severe pain documented in this encounter Additional Health Concerns Assessment Noted Time A Body Mass Index follow-up plan has been documented for the patient 06/27/2024 12:05 PM EDT documented as of this encounter Care Teams Crtt Relationship Specialty Start Date End Date Miley Verma MD [address] [place] [address] PCP - General 06/28/24 documented as of this encounter
--- OUTSIDE RECORDS SUMMARY | 2024-08-20 14:35 | XMS_ITS | Encounter Summary ---
Author Organization Healthcare Address [address] [place] [address] Care Team Providers Care Retort Kiln Burner Name Role Phone Miley Verma MD Primary Care Provider [phone] Reason for Referral * Imaging (Routine) - Authorized Specialty Diagnoses / Procedures Referred By Contac t Referred To Contact Radiology Diagnoses SAH (subarachnoid hemorrhage) (CMS/HCC) Procedures CT Head wo IV Contrast Zhang Sanchez MD [address] [address] Phone: tel: fax: Referral ID Status Reason Start Date Expiration Date V isits Requested Visits Authorized [id number] Authorized 07/02/2024 01/01/2026 1 1 Encounter Details Date Type Department Care Team (Late st Contact Info) Description 07/02/2024 Orders Only [facility] [address], [address] [place] [address] Zhang Sanchez MD [address] [address] SAH (subarachnoid hemorrhage) (CMS/HCC) (Primary Dx) Social History Tobacco Use Types Packs/Day Years [...] on file documented as of this encounter Plan of Treatment Upcoming Encounters Date Type Department Care Team (Late st Contact Info) Description 08/22/2024 8:30 AM EDT Appointment [facility] [address] [place] [address] 08/22/2024 9:40 AM EDT [facility] [address] [place] [address] Sonia Up, PA [address] [place] [address] 10/18/2024 8:15 AM EDT Office Visit [facility] [place] [address] [facility], [address] [place] [address] Carlitos Cowart, DO [address] [place] [address] Scheduled Orders Name Type Priority Associated Diagnoses Orde r Schedule CT Head wo IV Contrast Imaging Routine SAH (subarachnoid hemorrhage) ([facility]/HCC) Expected: 08/02/2024 (Approximate), Expires: 01/02/2026 documented as of this encounter Visit Diagnoses Diagnosis SAH (subarachnoid hemorrhage) (CMS/[facility])- Primary Subarachnoid hemorrhage documented in this encounter Additional Health Concerns Assessment Noted Time A Body Mass Index follow-up plan has been documented for the patient 06/27/2024 12:05 PM EDT documented as of this encounter Care Teams Retort Kiln Burner Relationship Specialty Start Date End Date Miley Verma MD [address] [place] [address] PCP - General 06/28/24 documented as of this encounter
--- OUTSIDE RECORDS SUMMARY | 2024-08-20 14:35 | XMS_ITS | Encounter Summary ---
Author Organization Healthcare Address [address] [place] [address] Care Team Providers Care Coal Getter Name Role Phone Pcp, No Primary Care Provider Unavailabl e Encounter Details Date Type Department Care Team (Latest Contact Info) Description 06/26/2024 Travel Social History Tobacco Use Types Packs/Day Years [...] on file documented as of this encounter Functional Status * Calculated C-SSRS Risk Score (Lifetime/Recent) Answer Date of Assessment Author No Risk Indicated 06/26/2024 11:34 AM EDT Kimberly Petersen RN * Question Answer Date of Assessment Author 1. Wish to be (Past 1 Month) No 025 11:34 AM EDT Kimberly Armstrong RN 2. Non-Specific Active Suici yeyo Thoughts (Past 1 Month) No 06/26/2024 11:34 AM EDT Hakeem Armstrong ae, RN 6. Suicidal Behavior (Lifetime) No 11:34 AM EDT Kimberly Armstrong RN documented as of this encounter Plan of Treatment Upcoming Encounters Date Type Department Care Team (Late st Contact Info) Description 08/22/2024 8:30 AM EDT Appointment [facility] [address] [place] [address] 08/22/2024 9:40 AM EDT Office Visit [facility] [address] [place] [address] Sonia Up, PA [address] [place] [address] 10/18/2024 8:15 AM EDT Office Visit [facility] [place] [address] [facility], [address] [place] [address] Carlitos Cowart DO [address] [place] [address] documented as of this encounter Visit Diagnoses Not on filedocumented in this encounter Additional Health Concerns Assessment Noted Time A Body Mass Index follow-up plan has been documented for the patient 06/27/2024 12:05 PM EDT documented as of this encounter Care Teams Coal Getter Relationship Specialty Start Date End Date Pcp, No [address] [place] [address] PCP - General Family Medicine 12/30/23 06/27/24 documented as of this encounter
--- OUTSIDE RECORDS SUMMARY | 2024-08-20 14:35 | XMS_ITS | Encounter Summary ---
Author Organization [facility] Address [address] [place] [address] Care Team Providers Care Driver/Sales Workers Name Role Phone Miley Verma MD Primary Care Provider [phone] Encounter Details Date Type Department Care Team (Latest Contact Info) Description 07/28/2024 Travel Social History Tobacco Use Types Packs/Day [...] Dover RN documented as of this encounter Plan of Treatment Upcoming Encounters Date Type Department Care Team (Late st Contact Info) Description 08/22/2024 8:30 AM EDT Appointment [facility] [address] [place] [address] 08/22/2024 9:40 AM EDT Office Visit [facility] [address] [place] [address] Sonia Up, PA [address] [place] [address] 10/18/2024 8:15 AM EDT Office Visit [facility] [place] [address] [facility], [address] [place] [address] Carlitos Cowart, DO [address] [place] [address] documented as of this encounter Visit Diagnoses Not on filedocumented in this encounter Additional Health Concerns Assessment Noted Time A Body Mass Index follow-up plan has been documented for the patient 06/27/2024 12:05 PM EDT documented as of this encounter Care Teams Driver/Sales Workers Relationship Specialty Start Date End Date Miely Verma MD [address] [place] [address] PCP - General 06/28/24 documented as of this encounter
--- OUTSIDE RECORDS SUMMARY | 2024-08-20 14:35 | XMS_ITS | Encounter Summary ---
Author Organization Healthcare Address [address] [place] [address] Care Team Providers Care C Wpf Developer Name Role Phone Miley Verma MD Primary Care Provider [phone] Reason for Visit * Reason Onset Date Comments HCN Clinical Concern/Question 08/09/2024 Encounter Details Date Type Department Care Team (Late st Contact Info) Description 08/09/2024 Telephone [facility] [address] [place] [address] None, None [address] [place] [address] HCN Clinical Concern/Question Social History Tobacco Use Types Packs/Day Years [...] on file documented as of this encounter Miscellaneous Notes * Telephone Encounter - Jessi Duran Abhilash - 08/09/2024 9:40 AM EDT Clinical Concern/Question Reason for Call: Patient calling to schedule her discharge appointment, has active request, updatedpatient's contact phone number Best contact number: [phone] (mobile) Optimal time of day to reach caller: ANYTIME Additional comments/information from caller: None Note: Please do not reply to this message. Follow-up communication and further actions as a result of this message need to be communicated with the patient directly, if the patient is not active onMyChart. If the patient is active on MyChart, they will receive notification of the communication/outcome via MyChart. documented in this encounter Plan of Treatment Upcoming Encounters Date Type Department Care Team (Late st Contact Info) Description 08/22/2024 8:30 AM EDT Appointment [facility] [address] [place] [address] 08/22/2024 9:40 AM EDT Office Visit [facility] [address], [address] [place] [address] Sonia Up PA [address] [place] [address] 10/18/2024 8:15 AM EDT Office Visit [facility] [place] [address] [facility], [address] [place] [address] Carlitos Cowart, DO [address] [place] [address] documented as of this encounter Visit Diagnoses Not on filedocumented in this encounter Additional Health Concerns Assessment Noted Time A Body Mass Index follow-up plan has been documented for the patient 06/27/2024 12:05 PM EDT documented as of this encounter Care Teams C Wpf Developer Relationship Specialty Start Date End Date Miley Verma MD [address] [place] [address] PCP - General 06/28/24 documented as of this encounter
--- OUTSIDE RECORDS SUMMARY | 2024-08-20 14:35 | XMS_ITS | Clinical Summary ---
Author Organization [facility] Address [address] [place] [address] Care Team Providers Care Knowledge Analyst Name Role Phone Miley Verma MD Primary Care Provider [phone] Allergies Active Allergy Reactions Criticality Noted Date Comments Lisinopril Itching Medium 11/18/2022 Medications topiramate 50 MG tablet Take 1 tablet (50 mg) by mouth 2 (two) times a day. 3 Active pregabalin (Lyrica) 50 MG capsule Take 1 capsule (50 mg) by mouth 2 (two) times a day. 3 Active pantoprazole (ProtoNix) 20 MG EC tablet Take 2 tablets (40 mg) by mouth 1 (one) time each day in the morning. 3 Active levothyroxine (Synthroid, Levoxyl) 50 MCG tablet Take 1 tablet (50 mcg) by mouth 1 (one) time each day in the morning. 3 Active hydrOXYzine HCl (Atarax) 25 MG tablet Take 0.5 tablets (12.5 mg) by mouth 3 (three) times a day. 3 Active alendronate (Fosamax) 70 MG tablet Take 1 tablet by mouth 1 time per week. Mondays 3 Active albuterol 108 (90 Base) MCG/ACT inhaler Inhale 2 puffs every 4 (four) hours if needed. 3 Active atorvastatin (Lipitor) 80 MG tablet Take 1 tablet (80 mg) by mouth 1 (one) time each day in the morning. 3 Active Farxiga 5 MG tablet Take 1 tablet (5 mg) by mouth 1 (one) time each day in the morning. 3 Active lacosamide (Vimpat) 50 MG tablet Take 1 tablet (50 mg) by mouth 1 (one) time each day in the morning. 3 Active primidone (Mysoline) 50 MG tablet Take 1 tablet (50 mg) by mouth 2 (two) times a day. 3 Active amLODIPine (Norvasc) 5 MG tablet Take 1 tablet by mouth daily. 30 tablet 5 Active carvedilol (Coreg) 6.25 MG tablet Take 1 tablet by mouth 2 times a day. 60 tablet 5 Active acetaminophen (Tylenol) 325 MG tablet Take 2 tablets by mouth every 6 hours. Under [place] law, monthly prescriptions (30 days) can be refilled at 25 days and three-month prescriptions (90 days) at 80 days. Please contact the insurance company with questions if refills are denied. 100 tablet 5 Active Active Problems Problem Noted Date Diagnosed Date Syncope 06/27/2024 IVH (intraventricular hemorrhage) 06/26/2024 Overview (06/26/2024): - BIG 3 (on plavix, hx of CVA) - CT Head: Small amount of intraventricular and subarachnoid hemorrhage with no significant mass effect, new from prior and most likely associated with known patient trauma. - NSG following - post 6H CT Head ordered SAH (subarachnoid hemorrhage) 06/26/2024 Overview (06/26/2024): - BIG 3 (on plavix, hx of CVA) - CT Head: Small amount of intraventricular and subarachnoid hemorrhage with no significant mass effect, new from prior and most likely associated with known patient trauma. - NSG following - post 6H CT Head ordered Recurrent falls 06/26/2024 Overview (06/27/2024): Syncopal workup outpatient with PCP Admit SGT 06/26; Tert 58 History of stroke 06/26/2024 Overview (06/26/2024): - w/ residual left sided deficits - hold AC Multilevel degenerative disc disease 06/26/2024 Overview (06/26/2024): - hx of degenerative disc disease - morphine pump - consult PM&R Closed traumatic nondisplace d fracture of one rib of right side 06/26/2024 Overview (06/26/2024): CT chest - nondisplaced RT 6th rib fracture - pain control Resolved Problems Problem Noted Date Diagnosed Date Resolved Date 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 [place] [address] None, None [facility] Clinical Concern/Question 07/28/2024 4:51 PM EDT - 07/28/2024 8:14 PM EDT Emergency [facility] Emergency Department [address] [place] [address] Dakota Gayle MD Hypertension, unspecified type (Primary Dx); Fall, initial encounter Discharge Disposition: Home or Self Care 07/28/2024 Travel 07/02/2024 Orders Only [facility] [address] [place] [address] Zhang Sanchez MD SAH (subarachnoid hemorrhage) ([facility]) (Primary Dx) 06/28/2024 1:02 PM EDT - 06/28/2024 6:32 PM EDT Emergency [facility] Emergency Department [address] [place] [id number] Brian Blevins MD Micciche, Andrew F, MD Hallucinations (Primary Dx) Discharge Disposition: Home or Self Care 06/28/2024 Travel 06/26/2024 11:18 AM EDT - 06/27/2024 1:22 PM EDT Hospital Encounter [facility] [address] [facility] [address] [place] [id number] Dimas Lau MD Belcher, Christopher N, MD Detelich, Danielle M, MD Griffen, Margaret M, MD Syncope, unspecified syncope type (Primary Dx); Recurrent falls Discharge Disposition: Home or Self Care 06/26/2024 Travel from Last 3 Months Immunizations Immunization Administration Dates Next Due Influenza Vaccine, Quadrival ent, Adjuvanted 11/09/2022,11/02/2021 Influenza, high-dose, quadrivalent 12/02/2016 Moderna COVID-19 Vaccine (Re d Cap) 12+ years 11/02/2021,06/23/2021,01/01/2021,04/16 Moderna Covid-19 Vaccine 12y +, Rico Protein, Preservative free 11/09/2022 Pneumococcal Conjugate PCV 13 10/03/2016 Pneumococcal Polysaccharide PPV23 03/26/2018, Family History Medical History Relation Name Comments Conversions - Other Father Malignan t neoplastic disease COPD Mother Hypercholesterolemia Mother Relation Name Status Comments Father Mother Social History Tobacco Use Types Packs/Day Years [...] PM EDT Sexual Orientation Not on file Last Filed Vital Signs Vital Sign Reading Time Taken Comments Blood Pressure 167/115 07/28/2024 8:01 PM EDT Pulse 74 07/28/2024 8:01 PM EDT Temperature 36.5 C (97.7 F) 07/28/2024 8:12 PM EDT Respiratory Rate 15 07/28/2024 8:01 PM EDT Oxygen Saturation 91% 07/28/2024 8:01 PM EDT Inhaled Oxygen Concentration - - Weight 65 kg (143 lb 4.8 oz) 07/28/2024 5:00 PM EDT Height 157.5 cm (5' 2 ) 06/28/2024 1:23 PM EDT Body Mass Index 26.21 06/28/2024 1:23 PM EDT Plan of Treatment Upcoming Encounters Date Type Department Care Team (Late st Contact Info) Description 08/22/2024 8:30 AM EDT Appointment [facility] [address] [place] [address] 08/22/2024 9:40 AM EDT [facility] [address] [place] [address] Sonia Up, PA [address] [place] [address] 10/18/2024 8:15 AM EDT Office Visit [facility] [address], [address] [place] [address] Carlitos Cowart, DO [address] [place] [address] Health Maintenance Due Date Last Done Comments [facility]-Depression Screening 1950 [facility]-Infant/Child/Adol SDOH Screenings 1950 [facility]- SDOH Screenings 1968 [facility]-Adult SDOH Screenings 1968 [facility]-DTaP,Tdap,and Td Vaccines (1 - Tdap) 1969 CT Colonography 10/29/1995 Colonoscopy 10/29/1995 FIT-DNA 10/29/1995 FIT 10/29/1995 FOBT 10/29/1995 Sigmoidoscopy 10/29/1995 [facility]-Colorectal Cancer Screening 10/29/1995 [facility]-RSV Vaccine: 60+ Years or (1 - Risk 60-74 years 1-dose series) 2010 [facility]-Bone Density Scan 04/23/2022 04/23/2020, 021 [facility]-Medicare Annual Wellness (AWV) 10/01/2022 10/01/2021, 07/16/2019, 03/26/2018, Additional history exists [facility]-Breast Cancer Screening 10/22/2023 10/21/2021, 0 10/21/2021 [id number] Vaccine ( season) 2023 11/09/2022, 11/02/2021, 06/23/2021, Additional history exists [facility]-Pneumococcal Vaccine: 50+ Years Completed 03/26/2018, 10/03/2016, 10/17/2009 [facility]-Zoster Vaccines Completed 02/08/2023, [facility]-Influenza Vaccine Completed 12/13/2023 , 11/09/2022, 11/02/2021, Additional history exists [facility]-Hepatitis C Screening Completed 12/30/2023, [facility]-Obesity Intervention Completed 06/26/2024 HPV Vaccines Aged Out No longer eligi ble based on patient's age to complete this topic [facility]-HIB Vaccines Aged Out No longer e ligible based on patient's age to complete this topic [facility]-Hepatitis A Vaccines Aged Out No longer eligible based on patient's age to complete this topic [facility]-IPV Vaccines Aged Out No longer e ligible based on patient's age to complete this topic [facility]-Rotavirus Vaccines Aged Out No lo nger eligible based on patient's age to complete this topic Medical Devices Implanted Type Area Wwe Wrestler Device Identifier Shelf Expiration Date Model / Serial / Lot Rv Lead Moreno-11/14/19 15 Implanted:10/22 (Quantity not on file) Lead Chest [employer] [id number]/52 / [id number] / Ra Lead St Sha-11/13/2014 Implanted:10/22 (Quantity not on file) Lead Chest [employer] [id number]/46 / [id number] / Assurity Pacemaker Moreno- 3 Implanted:03/0 10/2022 (Quantity not on file) Pacemaker Chest [employer] [id number] / [id number] / Procedures Procedure Name Priority Date/Time Associated Diagnosis Comments TROPONIN T, HIGH SENSITIVITY, 2 HOUR, PLASMA Timed 07/28/2024 7:39 PM EDT URINE JULES PANEL STAT 07/28/2024 7:39 PM EDT URINALYSIS WITH REFLEX MICROSCOPIC STAT 07/28/2024 7:39 PM EDT URINALYSIS WITH REFLEX MICROSCOPIC AND CULTURE STAT 07/28/2024 7:[address] CERVICAL [...] Routine 07/28/2024 5 :24 PM EDT EXTRA TUBES Routine 07/28/2024 5:24 PM EDT FREE T4, PLASMA STAT 07/28/2024 5:24 PM EDT TSH STAT 07/28/2024 5:24 PM EDT N-TERMINAL PROBNP, PLASMA STAT 07/28/2024 5:24 PM EDT TROPONIN T, HIGH SENSITIVITY, 0 HOUR, PLASMA, REFLEX TO 2 HOUR STAT 07/28/2024 5:24 PM EDT COMPREHENSIVE METABOLIC PANEL, PLASMA STAT 07/28/2024 5:24 PM EDT PROTHROMBIN TIME(PT) / INR STAT 07/28/2024 5:24 PM EDT CBC WITH AUTO DIFFERENTIAL STAT 07/28/2024 5:24 PM EDT OPIATES, LCMSMS, URINE STAT 2:36 PM EDT BARBITURATES URINE STAT 06/28/2024 2: 36 PM EDT SEND MARYELLEN MESSAGE STAT 06/28/2024 2: 36 PM EDT URINALYSIS MICROSCOPIC FOR UA REFLEX STAT 06/28/2024 2:36 PM EDT DRUG ABUSE SCREEN, URINE STAT 06/28/2024 2:36 PM EDT URINE JULES PANEL STAT 06/28/2024 2:36 PM EDT URINALYSIS WITH REFLEX MICROSCOPIC STAT 06/28/2024 2:36 PM EDT URINALYSIS WITH REFLEX MICROSCOPIC AND CULTURE STAT 06/28/2024 2:36 PM EDT URINE CULTURE STAT 06/28/2024 2:[address] HEAD WO IV CONTRAST STAT 2:[address] CHEST WO IV CONTRAST STAT 06/28/2024 2:26 PM EDT FREE T4, PLASMA STAT 06/28/2024 1:31 PM EDT TSH STAT 06/28/2024 1:31 PM EDT COMPREHENSIVE METABOLIC PANEL, PLASMA STAT 06/28/2024 1:31 PM EDT CBC WITH AUTO DIFFERENTIAL STAT 06/28/2024 1:31 PM EDT ECG ADULT STAT 06/28/2024 1:23 PM EDT POCT GLUCOSE METER UNSOLICITED RESULTS Routine 06/28/2024 1:[address] HEAD WO IV CONTRAST Timed 6:33 PM EDT URINE JULES PANEL STAT 06/26/2024 2:22 PM EDT URINALYSIS WITH REFLEX MICROSCOPIC STAT 06/26/2024 2:22 PM EDT URINALYSIS WITH REFLEX MICROSCOPIC AND CULTURE STAT 06/26/2024 2:22 PM EDT TROPONIN T, HIGH SENSITIVITY, 2 HOUR, PLASMA Timed 06/26/2024 1:[address] CHEST WO IV CONTRAST STAT 06/26/2024 11:[address] HEAD WO IV CONTRAST STAT 11:54 AM EDT FREE T4, PLASMA STAT 06/26/2024 11:17 AM EDT TSH STAT 06/26/2024 11:17 AM EDT N-TERMINAL PROBNP, PLASMA STAT 06/26/2024 11:17 AM EDT TROPONIN T, HIGH SENSITIVITY, 0 HOUR, PLASMA, REFLEX TO 2 HOUR STAT 06/26/2024 11:17 AM EDT COMPREHENSIVE METABOLIC PANEL, PLASMA STAT 06/26/2024 11:17 AM EDT CBC WITH AUTO DIFFERENTIAL STAT 06/26/2024 11:17 AM EDT ECG ADULT STAT 06/26/2024 10:46 AM EDT HEPATITIS C ANTIBODY - ED W/REFLEX TO HCV QUANT PCR STAT 12/30/2023 1:03 PM EST from Last 3 Months or Most Recently Relevant to Health Maintenance Results * Urine Jules Panel (07/28/2024 7:39 PM EDT) Only the most recent of3 resultswithin the time period is included. Extra Reflex urine culture not indicated 07/29/2024 4:03 AM EDT [facility] Comment: Previously prelim verified as [...] URINE ORDERABLES Final Result Performing Organization Address [facility] Co de Phone Number [facility] [address] [place] [address] * (ABNORMAL) Troponin T, High Sensitivity, 2 Hour, Plasma (07/28/2024 7:39 PM EDT) Only the most recent of2 resultswithin the time period is included. Troponin T, High Sensitivity, 2 Hour 19(H) <14 ng/L 07/28/2024 8:08 PM EDT [facility] Troponin Delta 1 <10 ng/L 07/28/2024 8:08 PM EDT [facility] Troponin Delta Interpretation Not Significant 07/28/2024 8:08 PM EDT [facility] Comment:Not Significant. No acute change in troponin observed between the baseline and 2 hour samples. Blood Venous blood specimen / Unknown Venipuncture / Unknown 07/28/2024 7:39 PM EDT 07/28/2024 7:42 PM EDT Dakota Gayle MD LAB BLOOD ORDERABLES Final Result Performing Organization Address [facility]/ZIP Co de Phone Number [facility] [address] [place] [address] * Urinalysis with reflex microscopic (Culture NOT Included) (07/28/2024 7:39 PM EDT) Only the most recent of3 resultswithin the time period is included. Color, Urine Yellow LAB URINALYSIS - AUTOMATED METHOD 07/28/2024 7:46 PM EDT [facility] Clarity, Urine Clear LAB URINALYSIS - AUTOMATED METHOD 07/28/2024 7:46 PM EDT [facility] Spec [place], Urine 1.006 1.005 - 1.030 LAB URINALYSIS - AUTOMATED METHOD 07/28/2024 7:46 PM EDT [facility] pH, Urine 7.0 5.0 - 8.0 LAB URINALYSIS - AUTOMATED METHOD 07/28/2024 7:46 PM EDT [facility] Protein, Urine Negative Negative mg/dL LAB URINALYSIS - AUTOMATED METHOD 07/28/2024 7:46 PM EDT [facility] Glucose, Urine Negative Negative mg/dL LAB URINALYSIS - AUTOMATED METHOD 07/28/2024 7:46 PM EDT [facility] Ketones, Urine Negative Negative mg/dL LAB URINALYSIS - AUTOMATED METHOD 07/28/2024 7:46 PM EDT [facility] Blood, Urine Negative Negative LAB URINALYSIS - AUTOMATED METHOD 07/28/2024 7:46 PM EDT [facility] Bilirubin, Urine Negative Negative LAB URINALYSIS - AUTOMATED METHOD 07/28/2024 7:46 PM EDT [facility] Urobilinogen, Urine 0.2 0.2 to 1.0 mg/dL LAB URINALYSIS - AUTOMATED METHOD 07/28/2024 7:46 PM EDT [facility] Leukocytes, Urine Negative Negative LAB URINALYSIS - AUTOMATED METHOD 07/28/2024 7:46 PM EDT [facility] Nitrite, Urine Negative Negative LAB URINALYSIS - AUTOMATED METHOD 07/28/2024 7:46 PM EDT [facility] Urine Urine specimen obtained by clean catch procedure / Unknown Non-blood Collection / Unknown 07/28/2024 7:39 PM EDT 07/28/2024 7:42 PM EDT Dakota Gayle MD LAB URINE ORDERABLES Final Result [facility] [address] [place] [address] * CT Cervical Spine wo IV Contrast [...] Total DLP (Dose-Length Product): 985.48 mGy.cm (accession [id number]), 985.48 mGy.cm (accession [id number]). Please note: The reported value represents the [...] Total DLP (Dose-Length Product): 985.48 mGy.cm (accession [id number]),985.48 mGy.cm (accession [id number]). Please note: The reported valuerepresents the total [...] Tory Davidson MD on 07/28/2024 7:34 PM Dakota Gayle MD IMG CT PROCEDURES Final Res ult * CT Head wo IV Contrast (07/28/2024 6:47 PM EDT) Only the most recent of4 resultswithin the time period is included. Anatomical Region Laterality Modality Head Computed Tomogra [...] Total DLP (Dose-Length Product): 985.48 mGy.cm (accession [id number]), 985.48 mGy.cm (accession [id number]). Please note: The reported value represents the [...] Total DLP (Dose-Length Product): 985.48 mGy.cm (accession [id number]),985.48 mGy.cm (accession [id number]). Please note: The reported valuerepresents the total [...] Tory Davidson MD on 07/28/2024 7:34 PM Dakota Gayle MD IMG CT PROCEDURES Final [...] No acute displaced rib fracture. Procedure Note Bnadar Mittal MD - 07/28/2024 CLINICAL INDICATION: syncope [...] * (ABNORMAL) Magnesium (07/28/2024 5:50 PM EDT) Pathologist [facility] Magnesium, Plasma 1.6(L) 1.9 - 2.4 mg/dL 07/28/2024 6:03 PM EDT [facility] Blood Venous blood specimen / Unknown Venipuncture / Unknown 07/28/2024 5:50 PM EDT 07/28/2024 5:52 PM EDT Dakota Gayle MD LAB BLOOD ORDERABLES Final Result [facility] [address] [place] [address] * EKG now - STAT (adult) (07/28/2024 5:31 PM EDT) Only the most recent of3 resultswithin the time period is included. EKG DIAGNOSIS CLASS Abnormal MUSE ECG Ventricular Rate 73 BPM MUSE ECG Atrial Rate 73 BPM MUSE ECG AL Interval 162 ms MUSE ECG QRSD Interval 72 ms MUSE ECG QT Interval 392 ms MUSE ECG QTC Interval 431 ms MUSE ECG R Silvis -6 degrees MUSE ECG T Wave Silvis 18 degrees MUSE ECG Diagnosis Atrial-paced rhythm in a pattern of bigeminy MUSE ECG Diagnosis Otherwise normal ECG MUSE ECG Diagnosis MUSE ECG Diagnosis Confirmed by Zhang Cornejo ([id number]) on 07/30/2024 8:52:13 AM MUSE ECG 07/28/2024 5:31 PM EDT 07/30/2024 8:52 AM EDT Dakota Gayle MD ECG ORDERABLES Final Resul t Performing Organization Address City/[facility]/ZIP Co de Phone Number MUSE ECG * Gold Top (07/28/2024 5:24 PM EDT) Only the most recent of2 resultswithin the time period is included. Pathologist [facility] Extra Hold for add-ons 07/28/2024 8:01 PM EDT [facility] Comment:Auto resulted. Blood Venous blood specimen / Unknown 07/28/2024 5:24 PM EDT 07/28/2024 5:29 PM EDT Dakota Gayle MD LAB BLOOD ORDERABLES Final Result Performing Organization Address [facility] Co de Phone Number [facility] [address] [place] [address] * (ABNORMAL) Troponin now and 120 min (07/28/2024 5:24 PM EDT) Only the most recent of2 resultswithin the time period is included. [facility] Troponin T, High Sensitivity, 0 Hour 18(H) <14 ng/L 07/28/2024 6:15 PM EDT [facility] Blood Venous blood specimen / Unknown Venipuncture / Unknown 07/28/2024 5:24 PM EDT 07/28/2024 5:38 PM EDT Dakota Gayle MD LAB BLOOD ORDERABLES Final Result Performing Organization Address City/[facility] Co de Phone Number [facility] [address] [place] [address] * BNP (07/28/2024 5:24 PM EDT) Only the most recent of2 resultswithin the time period is included. Pathologist [facility] N-Terminal, PROBNP, Plasma 116 0 - 899 pg/mL 07/28/2024 6:15 PM EDT [facility] Blood Venous blood specimen / Unknown Venipuncture / Unknown 07/28/2024 5:24 PM EDT 07/28/2024 5:38 PM EDT Dakota Gayle MD LAB BLOOD ORDERABLES Final Result Performing Organization Address City/[facility]/ZIP Co de Phone Number [facility] [address] [place] [address] * PT-INR (07/28/2024 5:24 PM EDT) Pathologist [facility] Prothrombin Time 14.0 12.0 - 14.3 sec 07/28/2024 5:38 PM EDT [facility] INR 1.1 0.9 - 1.1 07/28/2024 5:38 PM EDT [facility] Blood Venous blood specimen / Unknown Venipuncture / Unknown 07/28/2024 5:24 PM EDT 07/28/2024 5:26 PM EDT Narrative [facility] - 07/28/2024 5:38 PM EDT OPTIMAL INR RANGES FOR PATIENT ON ORAL ANTICOAGULANT THERAPY Prevention of venous thromboembolism INR 2.0 to 3.0 In patients with heart disease: Atrial fibrillation INR 2.0 to 3.0 Valvular heart disease INR 2.0 to 3.0 Tissue heart valves INR 2.0 to 3.0 Mechanical prosthetic valves INR 2.5 to 3.5 Prevention of recurrent OK INR 2.5 to 3.5 Dakota Gayle MD LAB BLOOD ORDERABLES Final Result [facility] [address] [place] [address] * (ABNORMAL) CBC w/diff (07/28/2024 5:24 PM EDT) Only the most recent of3 resultswithin the time period is included. Pathologist [facility] WBC Count 4.99 3.70 - 10.30 10*3/uL LAB HEMATOLOGY METHOD 07/28/2024 5:29 PM EDT [facility] RBC Count 3.06(L) 3.90 - 5.20 10*6/uL LAB HEMATOLOGY METHOD 07/28/2024 5:29 PM EDT [facility] HGB 10.0(L) 11.2 - 15.7 g/dL LAB HEMATOLOGY METHOD 07/28/2024 5:29 PM EDT [facility] HCT 28.4(L) 34.0 - 45.0 % LAB HEMATOLOGY METHOD 07/28/2024 5:29 PM EDT [facility] Platelet Count 197 155 - 369 10*3/uL LAB HEMATOLOGY METHOD 07/28/2024 5:29 PM EDT [facility] MCV 93 79 - 98 fL LAB HEMATOLOGY METHOD 07/28/2024 5:29 PM EDT [facility] MCH 32.7(H) 26.0 - 32.0 pg LAB HEMATOLOGY METHOD 07/28/2024 5:29 PM EDT [facility] MCHC 35.2 30.7 - 35.5 g/dL LAB HEMATOLOGY METHOD 07/28/2024 5:29 PM EDT [facility] RDW 12.4 11.5 - 14.5 % LAB HEMATOLOGY METHOD 07/28/2024 5:29 PM EDT [facility] MPV 8.4(L) 8.8 - 12.5 fL LAB HEMATOLOGY METHOD 07/28/2024 5:29 PM EDT [facility] nRBC 0.0 <=0.0 per 100 WBCs LAB HEMATOLOGY METHOD 07/28/2024 5:29 PM EDT [facility] Differential Type Automated LAB HEMATOLOGY METHOD 07/28/2024 5:29 PM EDT [facility] Neutrophils % 62 % LAB HEMATOLOGY METHOD 07/28/2024 5:29 PM EDT [facility] Lymphocytes % 26 % LAB HEMATOLOGY METHOD 07/28/2024 5:29 PM EDT [facility] Monocytes % 7 % LAB HEMATOLOGY METHOD 07/28/2024 5:29 PM EDT [facility] Eosinophils % 3 % LAB HEMATOLOGY METHOD 07/28/2024 5:29 PM EDT [facility] Basophils % 1 % LAB HEMATOLOGY METHOD 07/28/2024 5:29 PM EDT [facility] Immature Granulocytes % 1 % LAB HEMATOLOGY METHOD 07/28/2024 5:29 PM EDT [facility] Neutrophils Absolute 3.10 1.60 - 6.10 10*3/uL LAB HEMATOLOGY METHOD 07/28/2024 5:29 PM EDT [facility] Lymphocytes Absolute 1.30 1.20 - 3.90 10*3/uL LAB HEMATOLOGY METHOD 07/28/2024 5:29 PM EDT [facility] Monocytes Absolute 0.35 0.30 - 0.90 10*3/uL LAB HEMATOLOGY METHOD 07/28/2024 5:29 PM EDT [facility] Eosinophils Absolute 0.17 0.00 - 0.50 10*3/uL LAB HEMATOLOGY METHOD 07/28/2024 5:29 PM EDT [facility] Basophils Absolute 0.04 0.00 - 0.10 10*3/uL LAB HEMATOLOGY METHOD 07/28/2024 5:29 PM EDT [facility] Immature Granulocytes Absolute 0.03 0.00 - 0.06 10*3/uL LAB HEMATOLOGY METHOD 07/28/2024 5:29 PM EDT [facility] Blood Venous blood specimen / Unknown Venipuncture / Unknown 07/28/2024 5:24 PM EDT 07/28/2024 5:26 PM EDT Narrative [facility] - 07/28/2024 5:29 PM EDT Therapeutic decision making should be based on absolute values, rather than percentages. Dakota Gayle MD LAB BLOOD ORDERABLES Final Result [facility] [address] [place] [address] * Thyroid Stimulating Hormone, Plasma (07/28/2024 5:24 PM EDT) Only the most recent of3 resultswithin the time period is included. Thyroid Stimulating Hormone, Plasma 2.61 0.40 - 4.20 uIU/mL 07/28/2024 6:15 PM EDT [facility] Blood Venous blood specimen / Unknown Venipuncture / Unknown 07/28/2024 5:24 PM EDT 07/28/2024 5:38 PM EDT Dakota Gayle MD LAB BLOOD ORDERABLES Final Result Performing Organization Address City/[facility]/ZIP Co de Phone Number [facility] [address] [place] [address] * Free T4, Plasma (07/28/2024 5:24 PM EDT) Only the most recent of3 resultswithin the time period is included. Free T4, Plasma 0.8 0.8 - 1.7 ng/dL 07/28/2024 6:15 PM EDT [facility] Blood Venous blood specimen / Unknown Venipuncture / Unknown 07/28/2024 5:24 PM EDT 07/28/2024 5:38 PM EDT Dakota Gayle MD LAB BLOOD ORDERABLES Final Result Performing Organization Address City/[facility] Co de Phone Number [facility] [address] [place] [address] * (ABNORMAL) CMP (07/28/2024 5:24 PM EDT) Only the most recent of3 resultswithin the time period is included. Glucose, Plasma 115(H) 74 - 99 mg/dL 07/28/2024 6:15 PM EDT [facility] BUN, Plasma 11 8 - 23 mg/dL 07/28/2024 6:15 PM EDT [facility] Creatinine, Plasma 0.98 0.60 - 1.10 mg/dL 07/28/2024 6:15 PM EDT [facility] BUN/Creatinine Ratio 11 07/28/2024 6:15 PM EDT [facility] Sodium, Plasma 141 136 - 145 mmol/L 07/28/2024 6:15 PM EDT [facility] Potassium, Plasma 3.0(L) 3.6 - 4.9 mmol/L 07/28/2024 6:15 PM EDT [facility] Chloride, Plasma 115(H) 97 - 107 mmol/L 07/28/2024 6:15 PM EDT [facility] CO2, Plasma 17(L) 22 - 29 mmol/L 07/28/2024 6:15 PM EDT [facility] [facility] Anion Gap 9 6 - 16 mmol/L 07/28/2024 6:15 PM EDT [facility] Total Calcium, Plasma 6.8(L) 8.9 - 10.2 mg/dL 07/28/2024 6:15 PM EDT [facility] Total Protein 5.2(L) 6.3 - 7.9 g/dL 07/28/2024 6:15 PM EDT [facility] Albumin, Plasma 3.1(L) 3.5 - 5.2 g/dL 07/28/2024 6:15 PM EDT [facility] AST, Plasma 13 10 - 35 U/L 07/28/2024 6:15 PM EDT [facility] ALT, Plasma 13 10 - 35 U/L 07/28/2024 6:15 PM EDT [facility] Alkaline Phosphatase, Plasma 60 46 - 142 U/L 07/28/2024 6:15 PM EDT [facility] Total Bilirubin, Plasma <0.2(L) 0.2 - 1.1 mg/dL 07/28/2024 6:15 PM EDT [facility] eGFRcr 61.1 mL/min/1.7 3m*2 07/28/2024 6:15 PM EDT [facility] Comment:Reported eGFRcr in m L/min/1.73m2 is based the CKD-EPI 2020 equation that does not use a race coefficient. Blood Venous blood specimen / Unknown Venipuncture / Unknown 07/28/2024 5:24 PM EDT 07/28/2024 5:38 PM EDT us Dakota Gayle MD LAB BLOOD ORDERABLES Final Result [facility] [address] [place] [address] * SEND MARYELLEN MESSAGE (06/28/2024 2:36 PM EDT) Urine Urine specimen obtained by clean catch procedure / Unknown Non-blood Collection / Unknown 06/28/2024 2:36 PM EDT 06/28/2024 2:46 PM EDT us Brian Blevins MD LAB URINE ORDERABLES Final Resul t Performing Organization Address [facility] Co de Phone Number [facility] [address] [place] [address] * Urinalysis Microscopic Examination (06/28/2024 2:36 PM EDT) Urine Urine specimen obtained by clean catch procedure / Unknown Non-blood Collection / Unknown 06/28/2024 2:36 PM EDT 06/28/2024 2:39 PM EDT us Brian Blevins MD LAB URINE ORDERABLES Final Resul t Performing Organization Address [facility] [place] [address] * (ABNORMAL) Barbiturates Confirm Urine LCMSMS (06/28/2024 2:36 PM EDT) Butalbital 438(H) <50 ng/mL 07/02/2024 1:37 PM EDT [facility] Phenobarbital 67(H) <50 ng/mL 07/02/2024 1:37 PM EDT [facility] Secobarbital <50 <50 ng/mL 07/02/2024 1:37 PM EDT [facility] Urine Urine specimen obtained by clean catch procedure / Unknown Non-blood Collection / Unknown 06/28/2024 2:36 PM EDT 06/28/2024 2:39 PM EDT Narrative [facility] - 07/02/2024 1:37 PM EDT Drug analysis is confirmed by LC-MS/MS (LC Tandem Mass Spectrometry) on Urine specimens. This test was developed and its performance characteristics determined by [facility]. It has not been cleared or approved by the FDA. The laboratory is regulated under CLIA as qualified to perform high-complexity testing. This test is used for clinical purposes. Testing is performed at the [facility]. us Brian Blevins MD LAB URINE ORDERABLES Final Resul t Performing Organization Address [facility]/ZIP Co de Phone Number [facility] [address] [place] [address] * (ABNORMAL) Opiates Confirm Urine (06/28/2024 2:36 PM EDT) Codeine <50 <50 ng/mL 07/02/2024 1:37 PM EDT [facility] Codeine Glucuronide <50 <50 ng/mL 07/02/2024 1:37 PM EDT [facility] Desmethyl Tramadol <50 <50 ng/mL 07/02/2024 1:37 PM EDT [facility] EDDP - Methadone Metabolite <50 <50 ng/mL 07/02/2024 1:37 PM EDT [facility] Hydrocodone <50 <50 ng/mL 07/02/2024 1:37 PM EDT [facility] Hydromorphone <50 <50 ng/mL 07/02/2024 1:37 PM EDT [facility] Hydromorphone Glucuronide <50 <50 ng/mL 07/02/2024 1:37 PM EDT [facility] Comment:Metabolite of Hydrom orphone Meperidine <50 <50 ng/mL 07/02/2024 1:37 PM EDT [facility] Methadone <50 <50 ng/mL 07/02/2024 1:37 PM EDT [facility] 6 Monoacetyl morphine <10 <10 ng/mL 07/02/2024 1:37 PM EDT [facility] Morphine 69(H) <50 ng/mL 07/02/2024 1:37 PM EDT [facility] Morphine Glucuronide >1,000(H) <50 ng/mL 07/02/2024 1:37 PM EDT [facility] Comment:Metabolite of Morphi ne Naloxone <50 <50 ng/mL 07/02/2024 1:37 PM EDT [facility] Naloxone Glucuronide <50 <50 ng/mL 07/02/2024 1:37 PM EDT [facility] Comment:Metabolite of Naloxo ne Normeperidine <50 <50 ng/mL 07/02/2024 1:37 PM EDT [facility] Tramadol <50 <50 ng/mL 07/02/2024 1:37 PM EDT [facility] Urine Urine specimen obtained by clean catch procedure / Unknown Non-blood Collection / Unknown 06/28/2024 2:36 PM EDT 06/28/2024 2:39 PM EDT Narrative [facility] - 07/02/2024 1:37 PM EDT Drug analysis is confirmed by LC-MS/MS (LC Tandem Mass Spectrometry) on Urine specimens. This test was developed and its performance characteristics determined by [facility]. It has not been cleared or approved by the FDA. The laboratory is regulated under CLIA as qualified to perform high-complexity testing. This test is used for clinical purposes. Testing is performed at the [facility]. us Brian Blevins MD LAB URINE ORDERABLES Final Resul t [facility] [address] [place] [address] * Drug abuse screen (06/28/2024 2:36 PM EDT) Amphetamine Screen Urine Negative Cutoff: 500 ng/mL 06/28/2024 4:21 PM EDT [facility] Benzodiazepines Screen Urine Negative Cutoff: 200 ng/mL 06/28/2024 4:21 PM EDT [facility] Cannabinoid Screen Urine Negative Cutoff: 50 ng/mL 06/28/2024 4:21 PM EDT [facility] Cocaine Screen Urine Negative Cutoff: 300 ng/mL 06/28/2024 4:21 PM EDT [facility] Barbiturate Screen Urine Presumptive positive. Confirmation by LC-MS/MS to follow. Cutoff: 200 ng/mL 06/28/2024 4:21 PM EDT [facility] Opiate Screen Urine Presumptive positive. Confirmation by LC-MS/MS to follow. Cutoff: 300 ng/mL 06/28/2024 4:21 PM EDT [facility] Methadone Screen Urine Negative Cutoff: 300 ng/mL 06/28/2024 4:21 PM EDT [facility] Buprenorphine Screen Urine Negative Cutoff: 10 ng/mL 06/28/2024 4:21 PM EDT [facility] Fentanyl Screen Urine Negative Cutoff: 1 ng/mL 06/28/2024 4:21 PM EDT [facility] Oxycodone Screen Urine Negative Cutoff: 100 ng/mL 06/28/2024 4:21 PM EDT [facility] Urine Urine specimen obtained by clean catch procedure / Unknown Non-blood Collection / Unknown 06/28/2024 2:36 PM EDT 06/28/2024 2:39 PM EDT us Brian Blevins MD LAB URINE ORDERABLES Final Resul t Performing Organization Address [facility] [place] [address] * Urine Culture (06/28/2024 2:36 PM EDT) Culture <10,000 CFU/mL Mixed urogenital, fecal, or skin ziyad present. 06/30/2024 6:07 AM EDT [facility] Urine Urine specimen obtained by clean catch procedure / Unknown Non-blood Collection / Unknown 06/28/2024 2:36 PM EDT 06/28/2024 2:46 PM EDT us Brian Blevins MD LAB MICROBIOLOGY - GENERAL ORDER [place] Final Result Performing Organization Address [facility] [place] [address] * CT Chest wo IV Contrast (06/28/2024 2:26 PM EDT) Only the most recent of2 resultswithin the time period is included. Anatomical Region Laterality Modality Chest Computed Tomogra [...] MD IMG CT PROCEDURES Final Result * (ABNORMAL) POCT glucose meter (06/28/2024 1:21 PM EDT) [facility] POCT Glucose 200(H) 74 - 99 mg/dL 06/28/2024 1:23 PM EDT [facility] Comment:Accuracy of a glucos e [...] 06/28/2024 1:23 PM EDT [facility] White Sugar Syrup Operator ID Zoila Chin [id number] 1:23 PM EDT [facility] Device ID [id number] 06/28/2024 1:23 PM EDT [facility] Specimen Type POC Capillary 06/28/2024 1:23 PM EDT [facility] Blood Capillary blood specimen / Unknown 06/28/2024 1:21 PM EDT 06/28/2024 1:23 PM EDT Generic Provider Poct LAB POINT OF CARE TEST DOCKED DEVICE UNSOLICITED RESULTS Final Result Performing Organization Address [facility] Co de Phone Number [facility] [address] [place] [address] * Hepatitis C Antibody - ED (12/30/2023 1:03 PM EST) [facility] Hepatitis C Antibody Negative Negative 12/30/2023 1:59 PM EST [facility] Blood Venous blood specimen / Unknown Venipuncture / Unknown 12/30/2023 1:03 PM EST 12/30/2023 1:17 PM EST Neal Hemphill MD LAB BLOOD ORDERABLES Final Result Performing Organization Address [facility] Co de Phone Number [facility] [address] [place] [address] from Last 3 Months or Most Recently Relevant to Health Maintenance Insurance [facility] [place] [address] Advance Directives * Full Code (Latest Code Status on File) Date Activated Date Inactivated Comments 06/26/2024 4:47 PM 06/27/2024 3:22 PM Question Answer Comments I have reviewed the capacity from the link above and, if needed, have updated to appropriate status: Yes * Full Code Date Activated Date Inactivated Comments 11/18/2022 8:54 PM 11/20/2022 12:45 AM Question Answer Comments Patient has decision-making capacity? Yes Care Teams Knowledge Analyst Relationship Specialty Start Date End Date Miley Verma MD [address] [place] [address] PCP - General 06/28/24
--- OUTSIDE RECORDS SUMMARY | 2024-08-20 14:35 | XMS_ITS | Encounter Summary ---
Author Organization [facility] Address [address] [place] [address] Care Team Providers Care Piece Work Inspector Name Role Phone Miley Verma MD Primary Care Provider [phone] Encounter Details Date Type Department Care Team (Latest Contact Info) Description 06/28/2024 Travel Social History Tobacco Use Types Packs/Day [...] Month) No 025 1:20 PM EDT Susan Solis RN 2. Non-Specific Active Suici yeyo Thoughts (Past 1 Month) No 06/28/2024 1:20 PM EDT Susan Solis, RN 6. Suicidal Behavior (Lifetime) No 5 1:20 PM EDT Susan Solis, RN documented as of this encounter Plan of Treatment Upcoming Encounters Date Type Department Care Team (Late st Contact Info) Description 08/22/2024 8:30 AM EDT Appointment [facility] [address] [place] [address] 08/22/2024 9:40 AM EDT Office Visit [facility] [address] [place] [address] Sonia Up, PA [address] [place] [address] 10/18/2024 8:15 AM EDT Office Visit [facility] [place] [address], [address] [place] [address] Carlitos Cowart, DO [address] [place] [address] documented as of this encounter Visit Diagnoses Not on filedocumented in this encounter Additional Health Concerns Assessment Noted Time A Body Mass Index follow-up plan has been documented for the patient 06/27/2024 12:05 PM EDT documented as of this encounter Care Teams Piece Work Inspector Relationship Specialty Start Date End Date Miley Verma MD [address] [place] [address] PCP - General 06/28/24 documented as of this encounter
== END 2024-08-20 23:59 | disposition home or self-care (01) ==
PROVIDERS: Visit Provider Internal Medicine
DX: I12.9 Hypertensive chronic kidney disease with stage 1 through stage 4 chronic kidney disease, or unspecified chronic kidney disease (principal); N18.31 Chronic kidney disease, stage 3a; E11.9 Type 2 diabetes mellitus without complications